=== PATIENT | female | born 1955 | race Caucasian/White ===

== ENCOUNTER 2024-09-20 18:01 | Outpatient (REF) | payer MEDICARE, OTHER, SELFPAY ==
--- NOTE | ~2024-09-20 | MR_ITS ---
EXAMINATION: MR BRAIN WITHOUT CONTRAST CLINICAL INFORMATION: [facility]. TIA/stroke possible. COMPARISON: None available. TECHNIQUE: MRI of the brain was obtained using routine sequences without contrast. FINDINGS: Submitted for interpretation on September 22, 2024. No restricted diffusion. No acute intracranial hemorrhage, mass effect, midline shift, hydrocephalus or herniation. Berger-white matter differentiation is normal. There are a few scattered, nonspecific hyperintense T2 FLAIR signal abnormality within the deep white matter supratentorial compartment. Susceptibility signal, right cerebellum white matter. Prominent Virchow-Rashawn spaces, congenital variant. Sellar/suprasellar region is normal. Craniocervical junction is intact and normal. Flow-void signal within the main cerebral vessels is normal. MR/MR head/brain wo con IMPRESSION: No acute stroke/nonhemorrhagic ischemia. No acute brain abnormality. Nonspecific T2 FLAIR signal. Electronically signed by: Bhargav Dubois MD 09/22/2024 03:13 PM [facility]
--- OUTSIDE RECORDS SUMMARY | 2024-09-20 18:10 | XMS_ITS | Continuity of Care Document ---
Author Organization [facility] 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 Care Team Information Rec eiver Unavailable Diamond Rosa Primary Care Physician Brandon legerle Problems Active Problems Provider Date Essential hypertension Onset: Pure hypercholesterolemia Onset: 01/21/2023 Impaired fasting glycemia Judy Castro Onset: 02/06/2023 Malaise and fatigue Mimi Ventura M.D. Onse t: 02/06/2023 Social History Type Date Description Comments Sex Unknown Medications Active Medications SIG Qnty Indications Order ing Provider Date Losartan Zzbycmguk69zz Tablets Take 1/2 Tablet By Mouth In Afternoon And 1 Full Tablet AT Night 135tabs I10 Mimi Ventura M.D. 08/23/2023 Sertraline FDY360rp Tablets take 1 tabs by mouth every day 30tabs Unknown Atorvastatin Jadmihe29vi Tablets take 1 tablet by mouth every day in the morning 90tabs Mimi Ventura M.D. Esomeprazole [id number] Capsules DR Take 1 Capsule By Mouth Every Day Rony Betancourt MD Vit B12 1000 x2/w->plans qod Unknown History Medications Losartan Olqusatdl66ag Tablets 1 in aft and 2 @night tab by mouth every day 270tabs I10 Mimi Ventura M.D. 05/15/2023 - 08/23/2023 Clonidine HCL0.1mg Tablets take 1 tablet by mouth twice a day 180tabs I10 Mimi Ventura M.D. 02/06/2023 - 05/20/2023 Metoprolol Xipifedq67fe Tablets Unknown 0 000 - 05/15/2023 Losartan Fokmwechb957lt Tablets Take 1 Tablet By Mouth Every Day In The Morning Unknown - 02/12/2023 Amlodipine Viyhpkfo3ro Tablets Take 1 Tablet By Mouth Every Day In The Morning Unknown - 02/12/2023
--- OUTSIDE RECORDS SUMMARY | 2024-09-20 18:10 | XMS_ITS | Continuity of Care Document ---
Author Organization [facility] Address [address] [place] [address]- Support Name Relationship Address Phone KEYANNA, HEBER Personal Relationship Unknown U navailable KEYANNA, HEBER Personal Relationship Unknown U navailable KEYANNA, HEBER Personal Relationship Unknown U navailable KEYANNA, HEBER Personal Relationship Unknown U navailable KEYANNA, HEBER Personal Relationship Unknown U navailable KEYANNA, HEBER Personal Relationship Unknown U navailable KEYANNA, HEBER Personal Relationship Unknown U navailable KEYANNA, HEBER Personal Relationship Unknown U navailable KEYANNA, HEBER Personal Relationship Unknown U navailable KEYANNA, HEBER Personal Relationship Unknown U navailable KEYANNA, HEBER Personal Relationship Unknown U navailable KEYANNA, HEBER Personal Relationship Unknown U navailable KEYANNA, HEBER Personal Relationship Unknown U navailable KEYANNA, HEBER Personal Relationship Unknown U navailable KEYANNA, HEBER spouse Unknown Unavailabl e KEYANNA, HEBER Personal Relationship Unknown U navailable KEYANNA, HEBER spouse Unknown Unavailabl e KEYANNA, HEBER Personal Relationship Unknown U navailable KEYANNA, HEBER Personal Relationship Unknown U navailable KEYANNA, HEBER Personal Relationship Unknown U navailable KEYANNA, HEBER Personal Relationship Unknown U navailable KEYANNA, HEBER Personal Relationship Unknown U navailable KEYANNA, HEBER Personal Relationship Unknown U navailable KEYANNA, HEBER Personal Relationship Unknown U navailable KEYANNA, HEBER Personal Relationship Unknown U navailable KEYANNA, HEBER Personal Relationship Unknown U navailable KEYANNA, KAREN Personal Relationship Unknown Елена vailable KEYANNA, HEBER Personal Relationship Unknown U navailable KEYANNA, HEBER Personal Relationship Unknown U navailable KEYANNA, HEBER Personal Relationship Unknown U navailable KEYANNA, HEBER Personal Relationship Unknown U navailable KEYANNA, HEBER Personal Relationship Unknown U navailable KEYANNA, HEBER Personal Relationship Unknown U navailable KEYANNA, HEBER Personal Relationship Unknown U navailable KEYANNA, HEBER Personal Relationship Unknown U navailable KEYANNA, LOUISA spouse Unknown Unavailable KEYANNA, HEBER Personal Relationship Unknown U navailable KEYANNA, HEBER Personal Relationship Unknown U navailable KEYANNA, HEBER Personal Relationship Unknown U navailable KEYANNA, HEBER Personal Relationship Unknown U navailable Care Team Providers 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 Name Role Phone Shelley MARTINEZ, Diamond Garcia Primary Care Physician Encounter [facility] [place] Date(s): 09/18/24 - 09/18/[address] [address]- Encounter Diagnosis Hypertension(Final) - 09/18/24 Discharge Disposition: A-D/C Home Attending Physician: Orlando Mcleod MD Admitting Physician: Orlando Mcleod MD Referring Physician: Not on Staff, Referring MD Encounter Type: Disch ES Allergies, Adverse Reactions, Alerts Substance Criticality Severity Reaction Reaction Severity Status statins Myalgia Active Medications atorvastatin 40 mg oral tablet 1 tablet = 40 mg, By Mouth, Daily, # 90 tablet, 3 Refills, Maintenance, Tablet, Route to Pharmacy Electronically, [id number], [facility]/pharmacy #[id number] Start Date: 12/12/18 Stop Date: 12/07/19 Status: Ordered Quantity: 90.0 Unit: tablet Repeat number: 4 Fish Oil By Mouth, Daily, 0 Refills, Maintenance, 07/03/13 3:11:43 PM EDT Start Date: 07/03/13 Status: Ordered Repeat number: 1 hydrochlorothiazide 25 mg oral tablet 25 mg, 1, tablet, By Mouth, Daily, # 30 tablet, Refills 0, Tot. Refills 0, Maintenance, 09/18/24 9:31:00 AM EST, Route to Pharmacy Electronically, [facility]/pharmacy #[id number], Partial fill upon patient requestif the prescription is for a schedule II opioid drug., 165, cm, 09/18/24 7:29:00 EST, Height, 68.3,kg, 09/18/24 7:29:00 EST, Dry Weight Start Date: 09/18/24 Status: Ordered Quantity: 30.0 Unit: tablet Repeat number: 1 losartan 100 mg oral tablet 1 tablet = 100 mg, By Mouth, Daily, # 90 tablet, 3 Refills, Maintenance, 10/17/23 10:13:00 AM EST, Tablet, [facility]/pharmacy #[id number], Partial fill upon patient request if the prescription is for a schedule IIopioid drug., 167, cm, 10/17/23 9:47:00 EST, Height Start Date: 10/17/23 Stop Date: 10/11/24 Status: Ordered Quantity: 90.0 Unit: tablet Repeat number: 4 metoprolol 50 mg oral tablet 50 mg, 1, tablet, By Mouth, 2 times a day, # 180 tablet, Refills 3, Tot. Refills 3, Maintenance, 10/17/23 10:13:00 AM EST, Route to Pharmacy Electronically, [facility]/pharmacy #[id number], Partial fill upon patient request if the prescription is for a schedule II opioid drug., 167, cm, 10/17/23 9:47:00 EST, Height Start Date: 10/17/23 Stop Date: 10/11/24 Status: Ordered Quantity: 180.0 Unit: tablet Repeat number: 4 omeprazole 20 mg oral delayed release tablet 1 tablet = 20 mg, By Mouth, 2 times a day, # 120 tablet, 0 Refills, Maintenance, 06/19/23 10:49:00 AM EDT, EC Tablet, Partial fill upon patient request if the prescription is for a schedule II opioiddrug. Start Date: 06/19/23 Status: Ordered Quantity: 120.0 Unit: tablet Repeat number: 1 sertraline 100 mg oral tablet 1 tablet = 100 mg, By Mouth, Daily, # 30 tablet, 0 Refills, Maintenance, 10/17/23 9:49:00 AM EST, Tablet, Partial fill upon patient request if the prescription is for a schedule II opioid drug. Start Date: 10/17/23 Status: Ordered Quantity: 30.0 Unit: tablet Repeat number: 1 Problem List Condition Confirmation Course Effective Dates Status H ealth Status Informant Chest pain on exertion Confirmed Active 2, c/s x 2 Confirmed Active Heart disease Confirmed Active Hyperlipidemia Confirmed Active Hypertension Confirmed Active HTN (hypertension) Confirmed Active Metabolic syndrome Confirmed Active SH - Social history 1 Confirmed Active 1Married to Heber. No tob, no drugs. Etoh 3/week. Vital Signs Most recent to oldest [Reference Range]: 1 2 3 Height 165 cm (09/18/24 7:29 AM) 165 cm (09/18/24 7:21 AM) Weight 68.3 kg (09/18/24 7:29 AM) 68.3 kg (09/18/24 7:21 AM) Oxygen Saturation [94-100 %] 98 % (09/18/24 9:00 AM) 99 % (09/18/24 8:00 AM) 98 % (09/18/24 7:21 AM) Pulse Rate [55-90 bpm] 69 bpm (09/18/24 9:00 AM) 59 bpm (09/18/24 8:00 AM) 65 bpm (09/18/24 7:21 AM) Body Mass Index [18.5-24.99 kg/m2] 25.09 kg/m2 *H* (09/18/24 7:21 AM) Blood Pressure [90-138/55-84 mm Hg] 163/63mm Hg *H* (09/18/24 9:00 AM) 178/87mm Hg *H* (09/18/24 8:00 AM) 206/83mm Hg *H* (09/18/24 7:21 AM) Respiratory Rate [16-30 br/min] 19 br/min (09/18/24 9:00 AM) 18 br/min (09/18/24 8:00 AM) 17 br/min (09/18/24 7:21 AM) Temperature [96.8-100.4 DegF] 97.3 DegF (09/18/24 7:21 AM) Mode of Delivery (Oxygen) Room air (09/18/24 9:00 AM) Room air (09/18/24 8:00 AM) Room air (09/18/24 7:21 AM) Blood pressure sites Arm, left (09/18/24 9:00 AM) Arm, left (09/18/24 8:00 AM) Arm, right (09/18/24 7:21 AM) Temperature Route Oral (09/18/24 7:21 AM) Dry Weight 68.3 kg (09/18/24 7:29 AM) 68.3 kg (09/18/24 7:21 AM) Weight Obtained Via Patient/family stated (09/18/24 7:29 AM) Patient/family stated (09/18/24 7:21 AM) Social History Social History Type Response Smoking Status Never smoker; Tobacc o user in household: No entered on: 08/12/13 Sex Sex Representation Female (finding) EKG study * Event Display: ECG 12-Lead Authored Date: Please click on pdf link to open report * Event Display: ECG 12-Lead Authored Date: Ventricular Rate: 61 BPM Atrial Rate: 61 BPM P-R Interval: 206 ms QRS Duration: 92 ms Q-T Interval: 462 ms QTC Calculation(Bazett): 465 ms P [place]: 49 degrees R [place]: 36 degrees T [place]: 78 degrees Normal sinus rhythm Left ventricular hypertrophy with repolarization abnormality Abnormal ECG When compared with ECG of 19-Jun-2023 10:38, No significant change was found Confirmed by PAT MADRIGAL ([id number]) on 09/18/2024 5:03:14 PM [place]: PAT MADRIGAL Note * Harsha LEHMAN, Orlando Hurd: PERFORM Event Display: Patient Education Leaflets Authored Date: [id number] Uncontrolled High Blood Pressure (Established) ?? [id number] Uncontrolled High Blood Pressure (Established) Your blood pressure was unusually high today. Your blood pressure may be high for several reasons. For example, this can occur if you???ve missed doses of your blood pressure medicine. Or it can happen if you are taking other medicines such as some asthma inhalers, decongestants, diet pills, and illegal drugs like cocaine and amphetamine. Other causes of high blood pressure include: ??? Weight gain ??? Too much salt in your diet ??? Smoking ??? Caffeine ??? Lack of exercise ??? Intense pain ??? Becoming upset???this means you feel fear, anger, or another strong emotion Blood pressure measurements are given as two numbers. Systolic blood pressure is the upper number. This is the pressure when the heart contracts. Diastolic blood pressure is the lower number. This isthe pressure when the heart relaxes between beats. You will see your blood pressure readings written together. For example, a person with a systolic pressure of 118 and a diastolic pressure of 78 will have 118/78 written in the medical record. To be diagnosed with high blood pressure, your numbers must be higher than the normal range when tested over a period of time. Blood pressure is categorized as normal, elevated, or stage 1 or stage 2 high blood pressure: ??? Normal blood pressure is systolic of less than 120 and diastolic of less than 80 (120/80) ??? Elevated blood pressure is systolic of 120 to 129 and diastolic less than 80 ??? Stage 1 high blood pressure is systolic of 130 to 139 or diastolic between 80 to 89 ??? Stage 2 high blood pressure is when systolic is 140 or higher or the diastolic is 90 or higher Uncontrolled high blood pressure can cause serious health problems. It raises your risk for heart attack, stroke, as well as both kidney and heart failure. But you can do many things to manage your blood pressure. In general, if you have high blood pressure, keeping your blood pressure below 130/80mmHg may help prevent these problems. Your healthcare provider may prescribe medicine to help control blood pressure if lifestyle changes are not enough. Home care It???s important to take steps to lower your blood pressure. If you are taking blood pressure medicine, the guidelines below may help you need less or no medicines in the future. ??? Start a weight-loss program if you are overweight. ??? Cut back on the amount of salt in your diet: o Don't have high-salt foods such as olives, pickles, smoked meats, canned soups, deli meats, or salted potato chips. o Don???t add salt to your food at the table. o Use only small amounts of salt when cooking. ??? Start an exercise program. Talk with your healthcare provider about what exercise program is best for you. It doesn???t have to be difficult. Even brisk walking for 20 minutes??3 times a week is a good form of exercise. ??? Don't use medicines that stimulate the heart. This includes many flzi-abl-zfqjhjz cold and sinus decongestant pills and sprays, as well as diet pills. Checkthe warnings about high blood pressure on the label. Before purchasing any uume-gda-ahrnjkr medicines or supplements, always ask the pharmacist about the product's potential interaction with your high blood pressure and your medicines. ??? Stimulants such as amphetamine or cocaine could be lethal for someone with high blood pressure, as well as those on certain blood pressure medicines. Never take these. ??? Limit how much caffeine you drink. Consider switching to noncaffeinated beverages. ??? Stop smoking. If you are a long-time smoker, this can be hard. Enroll in a stop-smoking program to ma ke it more likely that you will succeed. Talk with your provider about ways to quit. ??? Learn how to handle stress better. This is an important part of any program to lower blood pressure. Learn ways to relax. These include meditation, yoga, and biofeedback. ??? If medicines were prescribed, take them exactly as directed. Missing doses may cause your blood pressure to get out of control. Don't stop taking your medicines, even if you feel better or you feel like you don't need them anymore. Talk with your healthcare provider. ??? If you miss a dose or doses of your medicines, check with your healthcare provider or pharmacist about what to do. ??? Consider buying an automatic blood pressure m achNvigen. Your provider may advise a certain type. These are available at most pharmacies. It's idealto measure your blood pressure twice a day, once in the morning, and once in the late afternoon. Try to be consistent. Check your blood pressure around the same time each day for a good comparison. Keep a written record of your home blood pressure readings and take the record to your medical appointments. Here are some other guidelines on home blood pressure monitoring from the [employer]. ??? Don't smoke or drink coffee for 30 minutes before measuring your blood pressure. ??? Go to the bathroom before the test. ??? Relax for 5 minutes before taking the measurement. ??? Sit correctly. Be sure your back is supported. Don't sit on a couch or soft chair. Uncross your feet and place them flat on the floor. Place your arm on a solid, flat surface like a table with the upper arm at heart level. Make certain the middle of the cuff is directly above the bend of the elbow. Check the monitor's instruction manual for an illustration. ??? Take multiple readings. When you measure, take 2 or 3 readings 1 minute apart and record all of the results. ??? Take your blood pressure at the sametime every day, or as your healthcare provider recommends. ??? Record the date, time, and blood pressure reading. ??? Take the record with you to your next appointment. If your blood pressure monitorhas a built-in memory, simply take the monitor with you to your next appointment. ??? Call your provider if you have several high readings. Don't be frightened by a single high reading, but if you get several high readings, check in with your healthcare provider. ??? Note: When blood pressure reaches a systolic (top number) of 180 or higher or a diastolic (bottom number) of 110 or higher, you need emergency medical treatment. Call your healthcare provider right away. ?? Follow-up care Regular visits to your own healthcare provider for blood pressure and medicine checks are an important part of your care. Make a follow-up appointment as directed. Bring the record of your home bloodpressure readings to the appointment. ?? When to seek medical advice Call your healthcare provider right away if any of these occur: ??? Blood pressure reaches a systolic (top number) of 180 or higher or diastolic (bottom number) of110 or higher??? emergency medical treatment is required ??? Throbbing or rushing sound in the ears??? Nosebleed that comes back or doesn't go away ??? Dizziness or dizziness with spinning sensation(vertigo) Call 911 Call 911 if any of these occur: ??? Chest, arm, shoulder, neck, or upper back pain ??? Shortness ofbreath ??? Severe headache ??? Extreme drowsiness, confusion, or fainting ??? Weakness, tingling, or numbness of your face, arms, or legs (especially on one side of the body) ??? Trouble speaking or seeing? Last Reviewed Date: 2022 ?? 4166-1100 The [employer]. All rights reserved. This information is not intended as a substitute for professional medical care. Always follow your healthcare professional's instructions. ?? Patient Care team information Care Team Personnel Name: Shelley MARTINEZ, Diamond Garcia Position: Reference Physician Member Role: PCP Address: [address] [place] [address] Telecom: Care Team Related Persons Name: LOUISA BRICEÑO Insurance Providers Guarantor name: KAREN KEYANNA [employer] Plan Information #: 2 Payer: MARY LOZANO Member Number: [id number] Policy Number: NA Group Number: NA Health Plan Information #: 1 Payer: MEDICARE PART B OUTPT Member Number: [id number] Policy Number: NA Group Number: NA Health Plan Information #: 3 Payer: [employer] NON HMO PLANS Member Number: NA Policy Number: NA Group Number: NA
== END 2024-09-20 18:02 | disposition home or self-care (01) ==
LOC: HO.MRI 18:01
PROVIDERS: Visit Provider Psychiatry & Neurology Neurology
DX: G31.84 Mild cognitive impairment of uncertain or unknown etiology (principal)
CPT/HCPCS: 70551

== ENCOUNTER → 2024-09-20 18:19 | Outpatient (BNV) | payer MEDICARE, OTHER, SELFPAY | PROVIDERS: Visit Provider Radiology Diagnostic Radiology | DX: G31.84 Mild cognitive impairment of uncertain or unknown etiology (principal) | CPT/HCPCS: 70551 ==

== ENCOUNTER 2025-02-26 09:27 | Day surgery (SDC) | payer MEDICARE, OTHER, SELFPAY ==
--- OUTSIDE RECORDS SUMMARY | 2025-02-11 16:20 | XMS_ITS | Clinical Summary ---
Author Organization [employer] Address [address] [place] [address] [address] [place] [address] Care Team Providers Care Lamination Builder Name Role Phone Diamond Rosa ALEXIA Primary Care Provider [phone] Allergies No known active allergies Medications * This document contains information received from the source organization and may not represent a complete record from that organization. albuterol 108 (90 Base) MCG/ACT inhalerIndications :Mild intermittent asthma with acute exacerbation INHALE 2 PUFFS EVERY 6 HOURS IF NEEDED FOR WHEEZING OR SHORTNESS OF BREATH. 18 g 1 5 Active telmisartan-hydroC HLOROthiazide (Micardis HCT) 40-12.5 MG tabletIndications: Primary hypertension Take 1 tablet by mouth Once per day. 90 tablet 3 5 12/23/19 26 Active donepezil (Aricept) 5 MG tablet TAKE 1 TABLET BY MOUTH DAILY WITH FOOD 90 DAYS 5 Active famotidine (Pepcid) 40 MG tablet take 2 tablets by mouth every day at bedtime 5 Active omeprazole (PriLOSEC) [address] capsule TAKE 1 CAPSULE BY MOUTH EVERY DAY 30 MINUTES BEFORE MORNING MEAL 5 Active atorvastatin (Lipitor) 40 MG tabletIndications: Mixed hyperlipidemia Take 1 tablet (40 mg) by mouth Once per day. 90 tablet 3 5 Active sertraline (Zoloft) 100 MG tabletIndications: JENNY (generalized anxiety disorder) Take 1.5 tablets (150 mg) by mouth in the morning. 135 tablet 1 5 Active Active Problems Problem Noted Date Diagnosed Date Merrill's esophagus without dysplasia 07/21/2024 Hiatal hernia 04/10/2024 Primary osteoarthritis involving multiple joints 04/10/2024 JENNY (generalized anxiety disorder) 03/28/2023 Situational stress 03/28/2023 Impaired fasting glucose 02/06/2023 Anxiety 03/07/2018 Overview (10/09/2022): Last Assessment & Plan: She has been on sertraline for a long time and does not think this is working. Recommend follow-up with primary care for alternate SSRI or consider Wellbutrin. Chest tightness 03/07/2018 Overview (10/09/2022): Last Assessment & Plan: Resolved with better blood pressure control and decrease of metoprolol. High cholesterol 02/12/2018 Overview (10/09/2022): Last Assessment & Plan: She going to have a lipid profile drawn in the next several days. Hypertensive disorder 02/12/2018 Overview (10/09/2022): Last Assessment & Plan: Well-controlled with recent medication changes. Continue losartan 100 mg daily and metoprolol 100 mg nightly. Goal SBP less than 130. Follow-up 6 months. Mild intermittent asthma without complication Overview (10/09/2022): Last Assessment & Plan: No active wheezing. Continue inhalers. Resolved Problems Problem Noted Date Diagnosed Date Resolved Date Precordial pain 02/12/2018 07/21/2024 Overview (10/09/2022): Last Assessment & Plan: Her history is certainly consistent with ischemic heart disease. She is on very high dose of metoprolol and tells me a previous attempt at a stress test some years ago after the holding of this medication could not be done because of hypertension. She is at least for the moment asthma free so I've elected to proceed with a pharmacologic nuclear stress test so her medications can be continued. Her ECG today is remarkable for a sinus rhythm at 50 and voltage criteria for left ventricular hypertrophy. Encounters Date Type Department Care Team Description 01/12/2025 10:00 AM EDT Office Visit [address] [address] Diamond Rosa FNP Encounter for routine adult health examination with abnormal findings (Primary Dx); Encounter for screening mammogram for malignant neoplasm of breast; Primary osteoarthritis involving multiple joints; Screening for depression; Primary hypertension; JENNY (generalized anxiety disorder); Mixed hyperlipidemia 01/09/2025 Travel 12/21/[address] [address] Diamond Rosa FNP Primary hypertension 12/20/[address] [address] Diamond Rosa FNP Primary hypertension 11/20/2024 Population Health Risk Score [facility] () Department [address] [place] [phone] Provider, Population Health Generic from Last 3 Months Immunizations Immunization Administration Dates Next Due Influenza High-dose Quadriva lent Preservative Free 06/12/2022,07/31/2021,05/31/2020 Influenza injectable quadriv alent IIV4 with preservative 07/31/2021,08/07/2016 Influenza injectable quadriv alent preservative free 06/14/2017,07/17/2016,08/24/2015 Influenza, High Dose Seasona l, Preservative Free 08/28/2019 Influenza, IIV3, injectable 05/29/2012 Influenza, Injectable, MDCK, preservative free 05/03/2024 Influenza, Unspecified 08/28/2019,2016,06/09/2014,2012 Influenza, trivalent, adjuvanted 08/25/2024 Moderna Covid-19 Vaccine 6+ Bivalent 06/12/2022 Pneumococcal Conjugate PCV 20 07/30/2023 TD (adult), 2 Lf tetanus tox oid, preservative free, adsorbed 10/09/2022 Tdap 05/29/2012 Zoster, Recombinant 06/10/2019 Zoster, live 11/23/2013 Family History Medical History Relation Name Comments Accidental Father Ramiro Arthritis Father Ramiro Heart attack Father Ramiro Heart disease Father Ramiro Accidental Mother Noemi Breast cancer Mother Noemi Cancer Mother Noemi Depression Mother Noemi Drug abuse Mother Noemi Heart disease Mother Noemi Hypertension Mother Noemi Mental illness Mother Noemi Vision loss Mother Noemi Heart disease Other Breast cancer Paternal Grandmother Asthma Sister Aleta Relation Name Status Comments Father Ramiro Mother Noemi Other Paternal Grandmother Sister Aleta Social History Tobacco Use Types Packs/Day Years Used Date Smoking Tobacco: Never Smokeless Tobacco: Never Tobacco Cessation:Counseling Given: Not Answered Alcohol Use Standard Drinks/Week Comments Not Currently 0 (1 standard drink = 0.6 oz pur e alcohol) Alcohol Answer Date Recorded How often do you have a drink containing alcohol ? 0 01/08/2024 How many drinks containing a lcohol do you have on a typical day when you are drinking? 0 01/08/2024 How often do you have six or more drinks on one occasion? 0 01/08/2024 Depression Answer Date Recorded Patient Health Questionnaire-9 Score 13 01/12/2025 Patient Health Questionnaire-9 Score 13 01/12/2025 Last PHQ-9: Questionnaire Data Not on file 0 01/12/2025 Housing Stability Answer Date Recorded What is your housing situation today? I have claire blanchard 01/12/[address] you li ve. Do you have problems with any of the following? None of the above 01/12/2025 Food Insecurity Answer Date Recorded Within the past 12 months, y ou worried that your food would run out before you got money to buy more: Never True 01/12/2025 Within the past 12 months,th e food you bought just didn't last and you didn't have enough money to get more: Never True 02/2025 Transportation Answer Date Recorded In the past 12 months, has l ack of transportation kept you from medical appts, meetings, work or from getting things needed for daily living? No 01/12/2025 Intimate Partner Violence Answer Date R ecorded Within the last year, have y ou been afraid of your partner or ex-partner? 2 01/12/2025 Within the last year, have y ou been humiliated or emotionally abused in other ways by your partner or ex-partner? 2 Within the last year, have y ou been kicked, hit, slapped, or otherwise physically hurt by your partner or ex-partner? 2 01/12/2025 Within the last year, have y ou been raped or forced to have any kind of sexual activity by your partner or ex-partner? 2 01/12/2025 Utilities Answer Date Recorded In the past 12 months, has t he [employer], gas, oil or water [employer] threatened to shut off services in your home? No 01/12/2025 Depression Answer Date Recorded Patient Health Questionnaire-2 Score 6 01/12/2025 Internet Access Answer Date Recorded Internet Access Q1 Yes 07/21/2024 Internet Access Q2 Not on file 07/21/2024 Comments Unknown Sex and Gender Information Value Date Recorded Sex Assigned at Female 10/09/2022 7:56 AM EST Legal Sex Female 12:16 PM EST Gender Identity Female 10/09/2022 7:56 AM EST Sexual Orientation Choose not to disclose 2022 8:53 AM EST Last Filed Vital Signs Vital Sign Reading Time Taken Comments Blood Pressure 134/74 01/12/2025 10:44 AM EDT Pulse 75 01/12/2025 10:44 AM EDT Temperature 36.4 ??C (97.5 ??F) 07/21/2024 9:00 AM ES T Respiratory Rate - - Oxygen Saturation 97% 01/12/2025 10:44 AM EDT Inhaled Oxygen Concentration - - Weight 70.1 kg (154 lb 9.6 oz) 10/08/2024 2:01 P M EST Height 167.6 cm (5' 6 ) 01/12/2025 10:44 AM EDT Body Mass Index 25.34 12/31/2023 9:56 AM EDT Plan of Treatment Upcoming Encounters Date Type Department Care Team (Late st Contact Info) Description 07/16/2025 9:00 AM EST Office Visit [address] [address] Diamond Rosa FNP [address] [place] [address] Health Maintenance Due Date Last Done Comments CT Colonography 1953 FIT DNA/Cologuard 1955 FIT 1955 FOBT 1955 Sigmoidoscopy 1955 RSV Patients and Patients Aged 60 years or older (1 - Risk 60-74 years 1-dose series) 2013 Zoster Vaccines (3 of 3) 08/05/2019 06/10/2019, 11/07 COVID-19 Vaccine ( season) 2024 12/04/2023, 07/08/2023, 06/12/2022, Additional history exists Mammogram 11/26/2024 11/27/2023, 11/07, 11/25/2023, Additional history exists Depression Monitoring 07/15/2025 01/12/2025, 025 Alcohol/Substance Use Screening 01/12/2026 01/12/2025 SDOH Screening 01/12/2026 01/12/2025 Tobacco Screening 01/12/2026 01/12/2025 Lipid Panel 02/15/2028 02/14/2023 Colonoscopy 05/10/2030 08/07/2018 Colorectal Cancer Screening 05/10/2030 DTaP/Tdap/Td Vaccines (3 - Td or Tdap) 10/09/2032 10/09/2022, 05/29/2012 Pneumococcal Vaccine: 50+ Years Completed 07/30/2023 Influenza Vaccine Completed 08/25/2024, , 06/12/2022, Additional history exists HIB Vaccines Aged Out No longer eligi ble based on patient's age to complete this topic HPV Vaccines Aged Out No longer eligi ble based on patient's age to complete this topic Hepatitis A Vaccines Aged Out No long er eligible based on patient's age to complete this topic Hepatitis B Vaccines Aged Out No long er eligible based on patient's age to complete this topic Hepatitis C Screening Discontinued IPV Vaccines Aged Out No longer eligi ble based on patient's age to complete this topic Meningococcal B Vaccine Aged Out No l onger eligible based on patient's age to complete this topic Meningococcal Vaccine Aged Out No shady esther eligible based on patient's age to complete this topic RSV under 20 months Aged Out No longe r eligible based on patient's age to complete this topic Rotavirus Vaccines Aged Out No longer eligible based on patient's age to complete this topic Procedures Procedure Name Priority Date/Time Associated Diagnosis Comments MAMMOGRAPHY Routine 11/27/2023 LIPID PANEL, STANDARD Routine 02/14/2023 8:56 AM EDT Primary hypertension Mixed hyperlipidemia from Last 3 Months or Most Recently Relevant to Health Maintenance Results * Mammography (11/27/2023) Mammogram BIRADS 2 Normal, Abnormal, BIRADS 1 , BIRADS 2 Anatomical Region Laterality Modality Other Historical Provider MD HEALTH MAINTENANCE Final Result * Lipid Panel, Standard (02/14/2023 8:56 AM EDT) Cholesterol, Total 190 (<200) MG/DL [facility] Triglyceride (mg/dL) in Serum/Plasma 121 (<150) MG/DL [facility] HDL Cholesterol 49 (>39) MG/DL [facility] LDL Cholesterol, Calculated 117 (0-130) MG/DL [facility] Non HDL Chol. (LDL+VLDL) 141 (<160) MG/DL [facility] Comment: Testing performed or reported by [facility], a Service of [facility], [address] [place] [id number] Harvey Issa MD, Diesel Scoop Operator [facility]# [id number] Blood Venous blood specimen / Unknown 02/14/2023 8:56 AM EDT 02/14/2023 9:04 AM EDT Diamond HALE LAB BLOOD ORDERABLES Final Res ult [address] [address] from Last 3 Months or Most Recently Relevant to Health Maintenance Insurance [employer] [facility] MEDICARE SUPPLEMENT Care Teams Lamination Builder Relationship Specialty Start Date End Date Diamond Rosa FNP PCP - General Family Medicine 08/20/22
[2025-02-26] VITALS (11 sets, daily range): BP systolic 115–153; BP diastolic 49–77; PULSE 58–72; RESP 16–18; TEMP 36.2–36.7; O2SAT 97–99; BMI 25.4
--- NOTE | ~2025-02-26 | FL_ITS ---
EXAMINATION: XR LUMBAR PUNCTURE CLINICAL INFORMATION: Mild cognitive impairment COMPARISON: None available. TECHNIQUE: Following explaining fluoroscopy-guided lumbar puncture procedure, benefits and risk, a written consent was obtained. Patient was placed prone on fluoroscopy table and preliminary fluoroscopy performed and optimal site was selected overlying the L3-4 disc level. A marker was placed in areas cleaned and draped in usual sterile manner. 1% lidocaine was administered at puncture site. A 20-gauge spinal needle was advanced from the skin intrathecally at the L3-4 disc level . After removing stylet and observing CSF fluid return, patient was quickly placed in the left lateral decubitus view and opening CSF pressure was obtained. Approximately 14 mL of clear CSF fluid was collected in 4 test tubes. Stylet was reintroduced and needle withdrawn. Complete hemostasis achieved at puncture site. Sterile Band-Aid applied postprocedure. Patient tolerated procedure extremely well. FINDINGS: On the AP view of the lumbar spine the vertebral heights and alignment is normal. There are bridging osteophytes at the L3-4 disc level. Opening CSF pressure measured 16 cm of water. Approximately 14 mL of clear CSF fluid was collected in 4 test tubes. FLUOROSCOPY TIME: 30 seconds DOSE AREA PRODUCT: 721.2 uGy-m2 (microgray-meter squared) FL/FL guided lumbar puncture LP IMPRESSION: Successful fluoroscopy-guided L3-L4 lumbar puncture performed without immediate complications. Electronically signed by: Rafael Mohan MD 02/26/2025 04:35 PM EDT
--- NOTE | 2025-02-26 09:44 | PC.NURSE ---
labs being drawn
[2025-02-26 09:49] LABS: MANUAL DIFF FLAG NO
[2025-02-26 09:52] LABS: Basophils Absolute Auto 0.1 X10*3/uL (0.0-0.2); Basophils Percent Auto 1.2 % (0-2); Eosinophils Absolute Auto 0.2 X10*3/uL (0.0-0.4); Eosinophils Percent Auto 4.2 % (0-4); Hematocrit 36.4 % (37.0-47.0); Hemoglobin 12.7 g/dl (12.0-16.0); Imm Gran Abs Auto 0.01 X10*3/uL (0.00-0.03); Imm Gran Pct Auto 0.2 % (0.0-0.4); Lymphocytes Absolute Auto 1.1 X10*3/uL (1.2-4.9); Lymphocytes Percent Auto 25.8 % (20-40); Mean Corpuscular HGB Conc 34.9 g/dl (31.0-35.0); Mean Corpuscular Volume 88.8 fL (80.0-98.0); Mean Platelet Volume 9.8 fL (9.4-12.3); Monocytes Absolute Auto 0.3 X10*3/uL (0.1-1.2); Monocytes Percent Auto 7.9 % (2-11); Neutrophils Absolute Auto 2.6 x10*3/uL (2.0-8.3); Neutrophils Percent Auto 60.7 % (45-73); Platelet Count 182 X10*3/uL (160-400); Red Cell Distribution Width 12.3 % (11.0-16.0); White Blood Count 4.3 X10*3/uL (4.8-10.8)
[2025-02-26 10:00] LABS: Prothrombin Time 11.8 SEC (10.9-12.4)
[2025-02-26 10:03] LABS: Partial Thromboplastin Time 33.9 SEC (26.0-36.8)
[2025-02-26 10:07] LABS: Anion Gap 9 (12-20); Blood Urea Nitrogen 12 mg/dL (9-16); Calcium 9.8 mg/dL (8.4-10.2); Carbon Dioxide 28 mmol/L (22-29); Chloride 105 mmol/L (96-108); Estimated Glomerular Filt Rate > 60; Glucose Random 102 mg/dL (60-115); Sodium 138 mmol/L (135-145)
[2025-02-26 12:35] LABS: CSF Appearance Clear, Colorless; CSF Tube # 1
[2025-02-26 12:39] LABS: Oligoclonal Serum Yes
[2025-02-26 12:43] LABS: Glucose CSF 53 mg/dL; Total Protein CSF 49.6 mg/dL (15-45)
[2025-02-26 12:55] LABS: Appearance CSF CLEAR; CSF Monos 14 %; CSF Tube # 4; Color CSF COLORLESS; Lymphocytes CSF 86 %
[2025-02-26 12:56] LABS: Red Blood Cell CSF 7 MM*3; White Blood Cell CSF 2 MM*3
[2025-03-04 16:53] LABS: Lyme IgG CSF Immunoblot NO BANDS DETECTED; Lyme IgM CSF Immunoblot NO BANDS DETECTED
[2025-03-05 01:43] LABS: Oligoclonal Banding Absent (Absent)
== END 2025-02-26 13:43 | disposition home or self-care (01) ==
PROVIDERS: Radiology Diagnostic Radiology; Visit Provider Psychiatry & Neurology Neurology
PROC: 009U3ZZ Drainage of Spinal Canal, Percutaneous Approach (ICD-10-PCS; CPT 62270; principal; 2025-02-26 11:00)
DX: G31.84 Mild cognitive impairment of uncertain or unknown etiology (principal); R79.9 Abnormal finding of blood chemistry, unspecified; D72.10 Eosinophilia, unspecified; I10 Essential (primary) hypertension; K21.9 Gastro-esophageal reflux disease without esophagitis; K44.9 Diaphragmatic hernia without obstruction or gangrene; Z79.899 Other long term (current) drug therapy
CPT/HCPCS: 36415; 62328; 80048; 82234; 82945; 83916; 84157; 84393; 84394; 85025; 85610; 85730; 86617; 87015; 87070; 87205; 89051; J2003

== ENCOUNTER → 2025-02-26 11:00 | Outpatient (BNV) | payer MEDICARE, OTHER, SELFPAY | PROVIDERS: Visit Provider Radiology Diagnostic Radiology | DX: G31.84 Mild cognitive impairment of uncertain or unknown etiology (principal) | CPT/HCPCS: 62328 ==

== ENCOUNTER 2025-04-27 10:09 | Outpatient (AMB) | payer MEDICARE, OTHER, SELFPAY ==
--- NOTE | 2025-04-27 10:34 | A.OFFVIS_ITS ---
Intake Visit Reasons: [facility] Allergies No Known Allergies Allergy (Verified 02/26/25 09:32) Medication List - Last Reconciled 04/27/25 by Leno Thorne MD atorvastatin 40 mg PO DAILY donanemab-azbt (Kisunla) 1,400 mg (80 mL) IV Q4W esomeprazole magnesium 40 mg PO DAILY famotidine 40 mg PO DAILY losartan 50 mg PO DAILY metoprolol tartrate 50 mg PO BID sertraline 100 mg PO DAILY telmisartan-hydrochlorothiazid 40-12.5 mg 1 tab PO DAILY HPI Comments Details: Short term memory is a problem. No recall of what the conversation was the day before. Functioning ok. Misplaces phone more regularly. Stopped her Donepezil after 2-3 weeks as she felt she was worse. Memantine 5mg bid . She has difficulty with names and spelling. She had trouble remembering what day it was and if she took her medications. She had missed some appointments. One time she tried to make coffee and poured water directly into coffee grounds. She was still under a lot of stress at home related to her . She started working with a therapist which was going well. She did okay with donepezil 5mg. She tried donepezil 10mg, but did not like how she felt. She had shakiness and change in sleep. She was either not able to sleep or was sleeping too much. She feels her memory has continued to decline over the last month. She was more forgetful and had to write everything down. She was still driving without issue, although she was nervous about getting lost while driving to this appointment. She was reading every night, but had some trouble remembering what she read and would have to go back. On two or three occasions, she left the burner on after using the stove. She had a friend who was receiving infusion treatments for AD. She was not sure if this was something she was eligible for. [facility] Medical History (Updated 04/27/25 @ 10:46 by Leno Thorne MD) Bilateral cataracts Mild cognitive impairment Elevated HDL Hiatal hernia GERD (gastroesophageal reflux disease) HTN (hypertension) Surgical History (Updated 02/26/25 @ 09:43 by Mary Lou Villalpando RN) History of removal of both ovaries H/O section H/O varicose vein ligation Social History Patient Tobacco Use Status: Never used Tobacco Review of Systems Const Details: General/Constitutional:? Change in appetitedenies.? Chillsdenies.? Fatigueadmits.? Feverdenies.? Weight gaindenies.? Weight lossdenies. ???Sleep:? Difficulty getting to sleepdenies.? Difficulty maintaining sleepdenies?.? Urge to move legsdenies.? Teeth grindingadmits.? Shouting or Kicking during sleep denies.? Abnormal behavior during sleepdenies.? Excessive sleepdenies.? Snoring admits.? Daytime sleepinessdenies. ???Respiratory:? Shortness of breathdenies.? Chest paindenies.? Coughdenies. ???Cardiovascular:? Chest pain at restdenies.? Chest pain with exertiondenies.? Claudicationdenies .? Dizzinessdenies.? Fluid accumulation in the legsdenies.? Irregular heartbeat denies.? Palpitationsdenies. ???Gastrointestinal:? Abdominal paindenies.? Constipationadmits.? Diarrheadenies.? Difficulty swallowingdenies.? Heartburnadmits.? Nauseadenies.? Rectal bleedingdenies. ???Genitourinary:? Frequent urinationdenies.? Urgencydenies.? Incontinencedenies.? Erectile Dysfunctiondenies. ???Musculoskeletal:? Neck painadmits.? Back paindenies.? Muscle achesadmits.? Painful jointsadmits.? Sciaticadenies.? Weaknessdenies. ???Neurologic:? Difficulty swallowingdenies.? Balance difficultydenies.? Coordinationnormal.? Difficulty speakingdenies.? Dizzinessdenies.? Faintingdenies.? Gait abnormality denies.? Headachedenies.? Loss of strengthdenies.? Loss of use of extremity denies.? Low back paindenies.? Memory lossadmits.? Seizuresdenies.? Ticsdenies.? Tingling/Numbnessdenies.? Transient loss of visiondenies.? Tremordenies. ???Psychiatric:? Anxietyadmits.? Auditory/visual hallucinationsdenies.? Delusionsdenies.? Depressed moodadmits.? Stressorsadmits.? Substance abusedenies.? Suicidal thoughtsdenies. Physical Exam Neuro Other: Neurological: Abnormal neurological findings:??MMS 24,?MoCA 17 with MIS 4/15, Functional Activities Questionnaire 12.?Mental Status:??alert, as below.?Cranial Nerves:??Pupils are equal, round and reactive to light. Fundoscopy shows normal disc bilaterally. External occular muscles are intact. Visual up are full, no ptosis. Face is symmetrical, no facial weakness or droop. Facial sensations are normal. Tongue protrudes in midline. Palate elevates symmetrically. Shoulder shrugging is normal..?Motor Examination:??Normal muscle tone, bulk and strength,?No atrophy or fasciculations,?No drift of the extended upper extremities,?Deep tendon reflexes are 2+?,?Plantars are flexor?.?Straight Leg Raising:??90 degrees.?Sensory Exam:??Normal light touch, temperature, pinprick, vibration and joint-position sensations?,?Rhomberg sign is absent.?Coordination:??no ataxia,?no titubation,?xxinwv-se-qiou, yolv-bpnv-gvjj test and rapid alternating movements were normal.?Gait Exam:??Within normal sterling its.?Cerebellar Signs:??Ulsdzu-jq-magw and qjvi-za-ykcp is normal,?no dysdiadochokinesia?.?Extrapyramidal System:??No tremor, rigidity with normal facial expressions,?No bradykinesia, no bradyphrenia. Normal arm swing and posture. No propulsion or retropulsion.?Speech:??Normal,?no dysphasia or dysarthria..? Mini Mental Status Exam: Level of Consciousness:??Alert.?Orientation:??Knows correct year, month, day and season. Not date.?Knows correct city, county and state. Knows correct location and floor.?Registration:??Able to register 3 objects.?Attention:??Serial 7's performed accurately to 93.?Recall:??Able to recall 2 out of 3 objects.?Language:??Normal spontaneous speech, fluency, repetition,naming, comprehension, reading and writing.?Total Score:??24.? General Examination: GENERAL APPEARANCE:??normal,?in no acute distress.?HEART:??S1, S2 normal,?no murmurs.?LUNGS:??clear anteriorly and posteriorly.?MUSCULOSKELETAL:?? normal.?EXTREMITIES:??no edema.?PSYCH:??alert, as above.? Results Reviewed Results Reviewed: 02/26/25 CSF: (A-beta 42) and total tau (T-tau) proteins, reflected in a reduced A-beta 42 to T-tau Index (ATI). The level of phospho-tau (P-tau) was also elevated. These results are consistent with a diagnosis of Alzheimer's disease (AD). Assessment & Plan Assessment & Plan (1) Mild cognitive impairment: Comment: 09/25/24 EEG- WNL 09/2024 labs ok 09/2024 MRI brain: No acute findings 11/18/24 MMS , MoCA with MIS 12/22, Functional Activities Questionnaire 12 Code(s): G31.84 - Mild cognitive impairment of uncertain or unknown etiology Category: Medical (2) Alzheimer's disease: Code(s): G30.9 - Alzheimer's disease, unspecified; F02.80 - Dementia in other diseases classified elsewhere, unspecified severity, without behavioral disturbance, psychotic disturbance, mood disturbance, and anxiety Category: Medical Plan Approval for Kisunla infusions for anti-amyloid therapy. Medications: New donanemab-azbt (Kisunla) administer as dose 4 and thereafter 1,400 mg (80 mL) IV Q4W Coding Level of Care Code Est Pt Level 4 (91250) Diagnoses Mild cognitive impairment G31.84 Alzheimer's disease G30.9; F02.80
--- OUTSIDE RECORDS SUMMARY | 2025-04-27 11:24 | XMS_ITS | Encounter Summary ---
Author Organization [facility] Address [facility] [address] [place] [address] Phone Care Team Providers Care Marketing Operations Coordinator Name Role Phone MayaElvin orellana Brittney DO Unavailable Nicky Lopez MD Unavailable [phone] Addie Castellon MD Unavailable [phone] Andreina Melissa KOSHER SEALER Unavailable [phone] Andreina Melissa KOSHER SEALER Primary Care Provider Diamond Rosa KOSHER SEALER Primary Care Provider + Encounter Details Date Type Department Care Team (Late st Contact Info) Description 05/09/2020 Ancillary Orders Virtual Department [address] [place] [address] Andreina Melissa, KOSHER SEALER [address] [place], [place] [phone] Breast screening Social History Tobacco Use Types Packs/Day Years Used Date Smoking Tobacco: Former Cigarettes Q uit: 02/12/1970 Smokeless Tobacco: Never Alcohol Use Standard Drinks/Week Comments Yes 0 (1 standard drink = 0.6 oz pur e alcohol) occasional Comments No Sex and Gender Information Value Date Recorded Sex Assigned at Female 08/07/2018 8:38 PM EST Legal Sex Female 9:57 PM EDT Gender Identity Female 08/07/2018 8:38 PM EST Sexual Orientation Straight 08/07/2018 8: 38 PM EST documented as of this encounter Plan of Treatment Upcoming Encounters Date Type Department Care Team (Late st Contact Info) Description 11/06/2024 Procedure Pass [address] [address] 05/14/2025 9:00 AM EDT Appointment [facility] [address] [place] [address] Diamond Rosa NP [address] [place] [address] documented as of this encounter Results * BI MAMMOGRAM SCREENING WITH TOMOSYNTHESIS WITH CAD (BILATERAL) (08/08/2020 10:02 AM EST) Anatomical Region Laterality Modality Breast Left, Breast Right, Breast Bilateral Bila teral Mammography 08/08/2020 1:21 PM EST Impressions 08/08/2020 1:24 PM EST No findings suspicious for malignancy. In the absence of a worrisome palpable abnormality, annual screening mammography is recommended. BI-RADS CATEGORY: 2 - Benign finding. DENSITY: There are scattered fibroglandular densities. Narrative 08/08/2020 1:24 PM EST COMPARISON: 01/20/2014 through 07/29/2019. Bilateral 3-D tomosynthesis with 2-D reconstructions in the CC and MLO projection of each breast was obtained. Computer-aided detection system also utilized. No new mass, asymmetry, architectural distortion or suspicious calcifications have become apparent on either side. Chronic widespread dermal and benign calcifications unchanged. Procedure Note Jose Martin Ling MD - 08/08/2020 COMPARISON: 01/20/2014 through 07/29/2019. Bilateral 3-D tomosynthesis with 2-D reconstructions in the CC and MLOprojection of each breast was obtained. Computer-aided detection systemalso utilized. No new mass, asymmetry, architectural distortion or suspiciouscalcifications have become apparent on either side. Chronic widespread dermal and benign calcifications unchanged. IMPRESSION: No findings suspicious for malignancy. In the absence of a worrisomepalpable abnormality, annual screening mammography is recommended. BI-RADS CATEGORY: 2 - Benign finding. DENSITY: There are scattered fibroglandular densities. Andreina Melissa KOSHER SEALER IMG MG EXAMS Final Result documented in this encounter Visit Diagnoses Diagnosis Breast screening Breast screening, unspecified Breast screening Breast screening, unspecified documented in this encounter Care Teams Marketing Operations Coordinator Relationship Specialty Start Date End Date Andreina Melissa NP [address] [place] [address] PCP - General Family Medicine 09/20/17 09/05/23 Diamond Rosa NP [address] [place] [address] PCP - General Family Medicine 09/06/23 Elvin Overton DO [address] [place] [address] Historical LMR Provider 06/24/17 09/16/21 Nicky Lopez MD [address] [place] [address], 2nd [place] [address] Historical LMR Provider 06/24/17 Addie Castellon MD [address] [place] [address] Historical LMR Provider 06/24/17 2 Andreina Melissa, KOSHER SEALER [address] [place] [address] Historical LMR Provider 06/24/17 documented as of this encounter Additional Source Comments The information contained in this document represents components of the legal health record. It is not the complete legal health record.[facility]
--- OUTSIDE RECORDS SUMMARY | 2025-04-27 11:24 | XMS_ITS | Clinical Summary ---
Author Organization [employer] Address [address] [facility] 7t [place] [address] Care Team Providers Care Mobile Lounge Driver Or Operator Name Role Phone Diamond Rosa ALEXIA Primary Care Provider [phone] Allergies No known active allergies Medications * This document contains information received from the source organization and may not represent a complete record from that organization. albuterol 108 (90 Base) MCG/ACT inhalerIndication s:Mild intermittent asthma with acute exacerbation INHALE 2 PUFFS EVERY 6 HOURS IF NEEDED FOR WHEEZING OR SHORTNESS OF BREATH. 18 g 1 10/01/19 25 Active telmisartan-hydro CHLOROthiazide (Micardis HCT) 40-12.5 MG tabletIndications :Primary hypertension Take 1 tablet by mouth Once per day. 90 tablet 3 12/23/19 25 026 Active donepezil (Aricept) 5 MG tablet TAKE 1 TABLET BY MOUTH DAILY WITH FOOD 90 DAYS 11/19/19 25 Active famotidine (Pepcid) 40 MG tablet take 2 tablets by mouth every day at bedtime 11/05/19 25 Active omeprazole (PriLOSEC) [address] capsule TAKE 1 CAPSULE BY MOUTH EVERY DAY 30 MINUTES BEFORE MORNING MEAL 12/21/19 25 Active atorvastatin (Lipitor) 40 MG tabletIndications :Mixed hyperlipidemia Take 1 tablet (40 mg) by mouth Once per day. 90 tablet 3 01/13/20 25 Active sertraline (Zoloft) 100 MG tabletIndications :JENNY (generalized anxiety disorder) TAKE 1 TABLET BY MOUTH EVERY DAY IN THE MORNING 90 tablet 3 03/31/20 25 Active sertraline (Zoloft) 100 MG tabletIndications :JENNY (generalized anxiety disorder) Take 1.5 tablets (150 mg) by mouth in the morning. 135 tablet 1 01/13/20 25 025 Discontinued Active Problems Problem Noted Date Diagnosed Date [...] Encounters Date Type Department Care Team Description 03/31/[address] [address] Diamond Rosa FNP JENNY (generalized anxiety disorder) from Last 3 Months Immunizations Immunization Administration [...] Mental illness Mother Noemi Vision loss Mother Onemi Heart disease Other Breast cancer Paternal Grandmother [...] the past 12 months, has t he electric, gas, oil or water company threatened to shut off services in your [...] 75 01/12/2025 10:44 AM EDT Temperature 36.4 C (97.5 F) 07/21/2024 9:00 AM EST Respiratory Rate - - Oxygen Saturation 97% [...] Description 07/16/2025 9:00 AM EST Office Visit [address] [address] Diamond Rosa FNP [address] [place] [address] Health Maintenance Due Date Last Done Comments CT Colonography 1953 FIT DNA/Cologuard 1955 FIT 1955 FOBT 1955 Sigmoidoscopy 1953 RSV Patients and Patients Aged 60 years or older (1 - Risk 60-74 years 1-dose series) 2013 Zoster Vaccines (3 of 3) 08/05/2019 06/10/2019, 11/07 COVID-19 Vaccine ( season) 2024 12/04/2023, 07/08/2023, 06/12/2022, Additional history exists Mammogram 11/26/2024 11/27/2023, 11/07, 11/25/2023, Additional history exists Influenza Vaccine (#1) 2025 , 05/03/2024, 06/12/2022, Additional history exists Depression Monitoring 07/15/2025 01/12/2025, 025 Alcohol/Substance Use Screening 01/12/2026 01/12/2025 SDOH Screening 01/12/2026 01/12/2025 Tobacco Screening 01/12/2026 01/12/2025 Lipid Panel 02/15/2028 02/14/2023 Colonoscopy 05/10/2030 08/07/2018 Colorectal Cancer Screening 05/10/2030 DTaP/Tdap/Td Vaccines (3 - Td or Tdap) 10/09/2032 10/09/2022, 05/29/2012 Pneumococcal Vaccine: 50+ Years Completed 07/30/2023 HIB Vaccines Aged Out No longer eligi [...] Procedure Name Priority Date/Time Associated Diagnosis Comments AMB REFERRAL TO HAND SURGERY Routine 02/15/2025 Primary osteoarthritis involving multiple joints HM MAMMOGRAPHY Routine 11/27/2023 LIPID PANEL, STANDARD Routine 02/14/2023 8:56 AM EDT Primary hypertension Mixed hyperlipidemia from Last 3 Months or Most Recently Relevant to Health Maintenance Results * Referral to Hand Surgery (02/15/2025) Diamond Rosa [facility] OUTPATIENT REFERRAL ORDERABLES Final Result * Mammography (11/27/2023) Mammogram BIRADS 2 Normal, Abnormal, BIRADS 1 , BIRADS 2 Anatomical Region Laterality Modality Other Historical Provider MD HEALTH MAINTENANCE Final Result * Lipid Panel, Standard (02/14/2023 8:56 AM EDT) Cholesterol, Total 190 (<200) MG/DL [facility] Triglyceride (mg/dL) in Serum/Plasma 121 (<150) MG/DL [facility] HDL Cholesterol 49 (>39) MG/DL [facility] LDL Cholesterol, Calculated 117 (0-130) MG/DL [facility] Non HDL Chol. (LDL+VLDL) 141 (<160) MG/DL [facility] Comment: Testing performed or reported by [facility], a Service of [facility], [address] [place] [address] Harvey Issa MD, Splitting Machine Tender [facility]# [id number] Blood Venous blood specimen / Unknown 02/14/2023 8:56 AM EDT 02/14/2023 9:04 AM EDT Diamond Rosa [facility] BLOOD ORDERABLES Final Res ult [facility] [address] [address] from Last 3 Months or Most Recently Relevant to Health Maintenance [place] [address] [place] [address] [id number] [facility] MEDICARE SUPPLEMENT Care Teams Mobile Lounge Driver Or Operator Relationship Specialty Start Date End Date Diamond Rosa FNP PCP - General Family Medicine 08/20/22
== END 2025-04-27 11:21 | disposition home or self-care (01) ==
LOC: HO.HSM 10:09
PROVIDERS: PCP Student in an Organized Health Care Education/Training Program; Referring Provider Student in an Organized Health Care Education/Training Program; Visit Provider Psychiatry & Neurology Neurology
DX: G31.84 Mild cognitive impairment of uncertain or unknown etiology (principal); G30.9 Alzheimer's disease, unspecified; F02.80 Dementia in other diseases classified elsewhere, unspecified severity, without behavioral disturbance, psychotic disturbance, mood disturbance, and anxiety
CPT/HCPCS: 99214

== ENCOUNTER → 2025-04-27 10:09 | Outpatient (BNVA) | payer MEDICARE, OTHER, SELFPAY | PROVIDERS: PCP Student in an Organized Health Care Education/Training Program; Referring Provider Student in an Organized Health Care Education/Training Program; Visit Provider Psychiatry & Neurology Neurology | DX: G31.84 Mild cognitive impairment of uncertain or unknown etiology (principal); G30.9 Alzheimer's disease, unspecified; F02.80 Dementia in other diseases classified elsewhere, unspecified severity, without behavioral disturbance, psychotic disturbance, mood disturbance, and anxiety | CPT/HCPCS: 99212 ==

== ENCOUNTER 2025-05-04 09:38 | Outpatient (REF) | payer MEDICARE, OTHER, SELFPAY ==
--- OUTSIDE RECORDS SUMMARY | 2025-05-04 10:15 | XMS_ITS | Encounter Summary ---
Author Organization [facility] Address Critical access hospital [employer] [facility] [address] [place] [address] Phone Care Team Providers Care Social Work Faculty Member Name Role Phone MayaElvin orellana Brittney DO Unavailable Nicky Lopez MD Unavailable [phone] Addie Castellon MD Unavailable Andreina Melissa IRRIGATOR Unavailable [phone] Andreina Melissa IRRIGATOR Primary Care Provider Diamond Rosa IRRIGATOR Primary Care Provider + Encounter Details Date Type Department Care Team (Late st Contact Info) Description 05/09/2020 Procedure Pass [address] [address] Social History Tobacco Use Types Packs/Day Years [...] (Late st Contact Info) Description 11/06/[address] [address] 05/14/2025 9:00 AM EDT Appointment [facility]- [address] [address] Diamond Rosa, JUAN [address] [place] [address] documented as of this encounter Visit Diagnoses Not on filedocumented in this encounter Care Teams Social Work Faculty Member Relationship Specialty Start Date End Date Andreina Melissa, IRRIGATOR [address] [place] [address] PCP - General Family Medicine 09/20/17 09/05/23 Diamond Rosa, JUAN [address] [place] [address] PCP - General Family Medicine 09/06/23 Elvin Overton DO [address] [place] [address] [email or web address] Historical LMR Provider 06/24/17 09/16/21 Nicky Lopez MD [address] [place] [address], [address] [place] [address] Historical LMR Provider 06/24/17 Addie Castellon MD [address] [place] [address] Historical LMR Provider 06/24/17 2 Andreina Melissa, IRRIGATOR [address] [place] [address] Historical LMR Provider 06/24/17 documented as of this encounter Additional Source Comments The information contained in this document represents components of the legal health record. It is not the complete legal health record.[facility]
--- OUTSIDE RECORDS SUMMARY | 2025-05-04 10:15 | XMS_ITS | Encounter Summary ---
Author Organization [facility] Address [facility] [address] [place] [address] Phone Care Team Providers Care Personal Investment Adviser Name Role Phone MayaHi orellanadanyell Lugo DO Unavailable Nicky Lopez MD Unavailable [phone] Addie Castellon MD Unavailable [phone] Andreina Melissa THERAPIST Unavailable [phone] Andreina Melissa THERAPIST Primary Care Provider Diamond Rosa THERAPIST Primary Care Provider + Encounter Details Date Type Department Care Team (Late st Contact Info) Description 05/09/2020 Ancillary Orders Virtual Department [address] [place] [address] Andreina Melissa, THERAPIST [address] [place], [place] [phone] Asymptomatic menopausal state Social History Tobacco Use Types Packs/Day Years [...] st Contact Info) Description 11/06/2024 Procedure Pass [address] [address] 05/14/2025 9:00 AM EDT Appointment [address] [address] Diamond Rosa NP [address] [place] [address] documented as of this encounter Results * BD DXA AXIAL (SPINE) WITH HIP (06/03/2020 1:33 PM EDT) Anatomical Region Laterality Modality Bone Density Bone Density 06/03/2020 2:57 PM EDT Impressions 06/03/2020 3:00 PM EDT Normal bone mineral density with interval decrease in the right hip since 2007. POS - [id number] Narrative 06/03/2020 3:00 PM EDT This is a 64-year-old postmenopausal white female who is not currently on hormonal therapy and does not take calcium supplements. She describes a perceived height loss of unknown severity.. Evaluation of the lumbar spine and hips was performed and felt to be technically adequate with comparison made to the documented levels of the 2008 study. Total bone mineral density in the L1-L4 vertebral bodies was calculated at gm/cm2 with a T-score of 0 and Z-score of , falling within the WHO classification of normal, without significant interval change from 2008. Total bone mineral density in the right hip was calculated at 0.849 gm/cm2 with a T-score of -0.8 and Z-score of falling within the WHO classification of normal, representing an interval decline of 6.2% since 2008. Total bone mineral density in the left hip was calculated at 0.901 gm/cm2 with a T-score of -0.3 and Z-score of 1.0 falling within the WHO classification of normal, without significant interval change from 2008. Procedure Note Zelalem Mcgrath MD - 06/03/2020 This is a 64-year-old postmenopausal white female who is not currently onhormonal therapy and does not take calcium supplements. She describes aperceived height loss of unknown severity.. Evaluation of the lumbar spine and hips was performed and felt to betechnically adequate with comparison made to the documented levels of [id number] study. Total bone mineral density in the L1-L4 vertebral bodies was calculated atgm/cm2 with a T-score of 0 and Z-score of , falling within the WHOclassification of normal, without significant interval change from 2007. Total bone mineral density in the right hip was calculated at 0.849 gm/tx0ndxe a T-score of -0.8 and Z-score of falling within the WHOclassification of normal, representing an interval decline of 6.2% [id number]. Total bone mineral density in the left hip was calculated at 0.901gm/cm2 with a T-score of -0.3 and Z-score of 1.0 falling within the WHOclassification of normal, without significant interval change from 2007. IMPRESSION: Normal bone mineral density with interval decrease in the right hip [id number]. POS - [id number] Andreina Melissa NP IMG BD BONE DENSITY DEXA Fin al Result documented in this encounter Visit Diagnoses Diagnosis Asymptomatic menopausal state Asymptomatic menopausal state documented in this encounter Care Teams Personal Investment Adviser Relationship Specialty Start Date End Date Andreina Melissa, JUAN [address] [place] [address] PCP - General Family Medicine 09/20/17 09/05/23 Diamond Rosa NP [address] [place] [address] PCP - General Family Medicine 09/06/23 Elvin Overton DO [address] [place] [address] [place] [address] Historical LMR Provider 06/24/17 09/16/21 Nicky Lopez MD [facility], [address] [place] [address] [email or web address] Historical LMR Provider 06/24/17 Addie Castellon MD [address] [place] [address] [email or web address] Historical LMR Provider 06/24/17 2 Andreina Melissa NP [address] [place] [address] Historical LMR Provider 06/24/17 documented as of this encounter Additional Source Comments The information contained in this document represents components of the legal health record. It is not the complete legal health record.[facility]
--- OUTSIDE RECORDS SUMMARY | 2025-05-04 10:15 | XMS_ITS | Encounter Summary ---
Author Organization [facility] Address [address] [place] [address] [place] [address] Phone Care Team Providers Care Electric Drill Operator Name Role Phone Elvin Overton DO Unavailable Nicky Lopez MD Unavailable [phone] Addie Castellon MD Unavailable [phone] Andreina Melissa LOGGING SUPERVISOR Unavailable [phone] Elvin Overton DO Primary Care Provider [phone] Andreina Melissa LOGGING SUPERVISOR Primary Care Provider Diamond Rosa LOGGING SUPERVISOR Primary Care Provider + Encounter Details Date Type Department Care Team (Late st Contact Info) Description 09/17/2017 Transcribe Orders [facility] [address] [place] [address] Andreina Melissa, LOGGING SUPERVISOR [address] [place] [address] Cough (Primary Dx) Social History Tobacco Use Types Packs/Day Years Used Date Smoking Tobacco: Never Assessed Comments Unknown Sex and Gender Information Value Date Recorded Sex Assigned at Female 08/07/2018 8:38 PM EST Legal Sex Female 9:57 PM EDT Gender Identity Female 08/07/2018 8:38 PM EST Sexual Orientation Straight 08/07/2018 8: 38 PM EST documented as of this encounter Plan of Treatment Upcoming Encounters Date Type Department Care Team (Late st Contact Info) Description 11/06/2024 Procedure Pass [address] [address] 05/14/2025 9:00 AM EDT Appointment [address] [address] Diamond Rosa, JUAN [address] [place] [address] documented as of this encounter Results * Pulmonary Function Test Reason for Exam: Cough; Type of PFT Test: Spirometry with bronchodilator, Spirometry while seated and supine, Lung Volumes, DLCO; Performing Location: [facility] (09/20/2017 11:56 AMEST) FEV1 liters FVC liters FEV1/FVC % TLC liters DLCO ml/mmHg sec Anatomical Region Laterality Modality Other Narrative 09/20/2017 11:56 AM EST Please see PFT interpretation in the Notes activity. Service date 09/20/2017 us Andreina Melissa NP PFT ORDERABLES Final Result documented in this encounter Visit Diagnoses Diagnosis Cough- Primary Cough documented in this encounter Care Teams Electric Drill Operator Relationship Specialty Start Date End Date Elvin Overton DO [address] [place] [address] PCP - General Family Medicine 08/06/17 09/19/17 Andreina Melissa NP [address] [place] [address] PCP - General Family Medicine 09/20/17 09/05/23 Diamond Rosa, JUAN [address] [place] [address] PCP - General Family Medicine 09/06/23 Elvin Overton DO [address] [place] [address] [place] [address] [email or web address] Historical LMR Provider 06/24/17 09/16/21 Nicky Lopez MD [address] [place] [address], [address] [place] [address] Historical LMR Provider 06/24/17 Addie Castellon MD [address] [place] [address] [email or web address] Historical LMR Provider 06/24/17 2 Andreina Melissa NP [address] [place] [address] Historical LMR Provider 06/24/17 documented as of this encounter Additional Source Comments The information contained in this document represents components of the legal health record. It is not the complete legal health record.[facility]
--- OUTSIDE RECORDS SUMMARY | 2025-05-04 10:15 | XMS_ITS | Encounter Summary ---
Author Organization [facility] Address [facility] [employer] [address] [address] Phone Care Team Providers Care Direct Casting Operator Name Role Phone Andreina Melissa TELEPHONE STATION REPAIRER Unavailable [phone] Andreina Melissa TELEPHONE STATION REPAIRER Primary Care Provider [phone] Diamond Rosa TELEPHONE STATION REPAIRER Primary Care Provider + Encounter Details Date Type Department Care Team (Late st Contact Info) Description 10/26/2021 Procedure Pass [address] [address] Social History Tobacco Use Types Packs/Day Years [...] st Contact Info) Description 11/06/2024 Procedure Pass [address] [address] 05/14/2025 9:00 AM EDT Appointment [address] [address] Diamond Rosa, JUAN [address] [place] [address] documented as of this encounter Visit Diagnoses Not on filedocumented in this encounter Care Teams Direct Casting Operator Relationship Specialty Start Date End Date Andreina Melissa TELEPHONE STATION REPAIRER PCP - General Family Medicine 09/20/17 09/05/23 Diamond Rosa NP [address] [place] [address] PCP - General Family Medicine 09/06/23 Andreina Melissa NP Historical LMR Provider 06/24/17 documented as of this encounter Additional Source Comments The information contained in this document represents components of the legal health record. It is not the complete legal health record.[facility]
--- OUTSIDE RECORDS SUMMARY | 2025-05-04 10:15 | XMS_ITS | Encounter Summary ---
Author Organization [facility] Address Formerly [facility] [address] [place] [address] Phone Care Team Providers Care Batch Weigher Name Role Phone MayaElvin orellana Brittney DO Unavailable Nicky Lopez MD Unavailable [phone] Addie Castellon MD Unavailable [phone] Andreina Melissa LUGGER Unavailable [phone] Andreina Melissa LUGGER Primary Care Provider Diamond Rosa LUGGER Primary Care Provider + Encounter Details Date Type Department Care Team (Late st Contact Info) Description 05/09/2020 Ancillary Orders Virtual Department [address] [place] [address] Andreina Melissa, LUGGER [address] [place], [place] [phone] Breast screening Social History Tobacco Use Types [...] st Contact Info) Description 11/06/2024 Procedure Pass [address] [address] 05/14/2025 9:00 AM EDT Appointment [facility] [address] [place] [address] Diamond Rosa NP [address] [place] [address] documented as of this encounter Results * [...] There are scattered fibroglandular densities. Andreina Melissa LUGGER IMG MG EXAMS Final Result documented in this encounter Visit Diagnoses Diagnosis Breast screening Breast screening, unspecified Breast screening Breast screening, unspecified documented in this encounter Care Teams Batch Weigher Relationship Specialty Start Date End Date Andreina Melissa NP [address] [place] [address] PCP - General Family Medicine 09/20/17 09/05/23 Diamond Rosa NP [address] [place] [address] PCP - General Family Medicine 09/06/23 Elvin Overton DO [address] [place] [address] Historical LMR Provider 06/24/17 09/16/21 Nicky Lopez MD [address] [place] [address], 2[address] [place] [address] Historical LMR Provider 06/24/17 Addie Castellon MD [address] [place] [address] Historical LMR Provider 06/24/17 2 Andreina Melissa, LUGGER [address] [place] [address] Historical LMR Provider 06/24/17 documented as of this encounter Additional Source Comments The information contained in this document represents components of the legal health record. It is not the complete legal health record.[facility]
--- OUTSIDE RECORDS SUMMARY | 2025-05-04 10:15 | XMS_ITS | Encounter Summary ---
Author Organization [facility] Address [address] [place] [address] [place] [address] Phone Care Team Providers Care Seeing Eye Dog Teacher Name Role Phone Elvin Overton DO Unavailable Nicky Lopez MD Unavailable [phone] Addie Castellon MD Unavailable [phone] Andreina Melissa WOOD CLUB NECK WHIPPER Unavailable [phone] Andreina Melissa WOOD CLUB NECK WHIPPER Primary Care Provider Diamond Rosa WOOD CLUB NECK WHIPPER Primary Care Provider + Reason for Referral * MRI/CAT Scan - Closed Specialty Diagnoses / Procedures Referred By Derrick alonso Referred To Contact Radiology Diagnoses Chest pain, unspecified type Procedures NC Myocardial Perfusion Exercise Multiple Eduar Roe MD Phone: tel: fax: mailto:[email or web address] Referral ID Status Reason Start Date Expiration Date Visits Re quested Visits Authorized [id number] Closed 02/05/2018 02/05/2019 1 1 Encounter Details Date Type Department Care Team (Latest Contact Info) Description 02/05/2018 Transcribe Orders [facility] [address] [place] [address] 3rd Floor, [address] [place] [address] Eduar Roe MD [address] [place] [address], [address] [place] [address] [email or web address] Chest pain, unspecified type (Primary Dx) Social History Tobacco Use Types [...] st Contact Info) Description 11/06/2024 Procedure Pass [address] [address] 05/14/2025 9:00 AM EDT Appointment [address] [address] Diamond Rosa, JUAN [address] [place] [address] documented as of this encounter Results * NC Myocardial Perfusion Exercise Multiple (03/04/2018 9:07 AM EDT) Nuc Stress EF 57 % LV Systolic Volume 55 mL LV Diastolic Volume 116 mL EF 52 % LV Systolic Volume Index 56 mL/m2 LV Diastolic Volume Index 132 mL/m2 Anatomical Region Laterality Modality Heart, Vascular Ultrasound Narrative 03/06/2018 2:08 PM EDT Probably normal study There is evidence of breast attenuation but this improves on prone imaging. There is no evidence of myocardial infarction or ischemia. Normal LV size and function with no regional wall motion abnormalities. Very low likelihood of hemodynamically significant coronary artery disease. Low risk study for myocardial events or cardiac in the next two years. Nuclear Study Quality Overall image quality is good. Two day stress/rest study.. Diaphragmatic attenuation artifact is present. Study successfully gated. Response to Stress BMI:27.09 Patient was unable to walk on TM due to hypertension. Test preformed using .4mg Lexiscan IV immediately followed by the injection of the Tc99m Sestamibi which the patient tolerated infusion without complications. Test terminated due to completion of protocol. SUMMARY: 1. RESTING EKG: sinus bradycardia HR 46 bpm 2. EXERCISE EKG: No EKG changes that meet criteria for ischemia. 3. SYMPTOMS: Patient reported 7/10 central chest pressure, shortness of breath, and lightheadedness with Lexiscan injection. Symptoms resolved by mid recovery. 4. PHYSIOLOGY: Appropriate HR and BP response to Lexiscan injection. 5. ARRHYTHMIA: No ectopy noted. CONCLUSION: Equivocal EKG portion of pharmacologic nuclear stress test with symptoms concerning for angina, but without EKG changes diagnostic of ischemia. Vital signs stable and returned to baseline prior to discharge from the lab. Of note, patient had resting hypertension at 180/102. Recommend increasing antihypertensive regimen and advised her to keep a home BP log. Report reviewed with Dr. Hernandez. Nuclear images and report to follow. Eduarda Martinez PA-C . Perfusion Comments The TID ratio was 1.1. Stress Function Comments Post-stress ejection fraction was 57%. Stress end diastolic index: 132 mL/m2. Stress end systolic index: 56 mL/m2. Nuclear Prior Study There is no prior study available for comparison. Rest Function Comments Resting ejection fraction was 52%. Rest end diastolic index: 116 mL. Rest end systolic index: 55 mL. Perfusion Scoring Stress Summed Score: 0 Percent Normal: 0.00% The left ventricular perfusion is normal. Perfusion Scoring Resting Summed Score: 0 Percent Normal: 0.00% The left ventricular perfusion is normal. Eduar Roe MD CV NM CARDIAC Final Result documented in this encounter Visit Diagnoses Diagnosis Chest pain, unspecified type- Primary Chest pain, unspecified type documented in this encounter Care Teams Seeing Eye Dog Teacher Relationship Specialty Start Date End Date Andreina Melissa NP [address] [place] [address] PCP - General Family Medicine 09/20/17 09/05/23 Diamond Rosa NP [address] [place] [phone] PCP - General Family Medicine 09/06/23 Elvin Overton DO [address] [place] [address] [email or web address] Historical LMR Provider 06/24/17 09/16/21 Nicky Lopez MD [address] [place] [address], 2nd [place] [address] [email or web address] Historical LMR Provider 06/24/17 Addie Castellon MD [address] [place] [address] [email or web address] Historical LMR Provider 06/24/17 2 Andreina Melissa NP [address] [place] [address] Historical LMR Provider 06/24/17 documented as of this encounter Additional Source Comments The information contained in this document represents components of the legal health record. It is not the complete legal health record.[facility]
--- OUTSIDE RECORDS SUMMARY | 2025-05-04 10:16 | XMS_ITS | Encounter Summary ---
Author Organization [facility] Address [address] [place] [address] Phone Care Team Providers Care Vision Rehabilitation Therapist Name Role Phone Andreina Melissa COOLER TENDER Unavailable [phone] Diamond Rosa COOLER TENDER Primary Care Provider + Encounter Details Date Type Department Care Team (Late st Contact Info) Description 06/17/2024 Procedure Pass [facility] Admitting Dept Virtual Department [address] [place] [address] Social History Tobacco Use Types Packs/Day Years Used Date Smoking Tobacco: Former Cigarettes Q uit: 02/12/1970 Smokeless Tobacco: Never Alcohol Use Standard Drinks/Week Comments Yes 0 (1 standard drink = 0.6 oz pur e alcohol) occasional Education Answer Date Recorded Are you interested in more education? Not on peter e 01/04/2023 Are you concerned about learning? Not on file 01/04/2023 No 01/04/2023 No 01/04/2023 Digital Access Answer Date Recorded No 02/04/2023 No 02/04/2023 Reliable internet access at home? Not on file 02/04/2023 Device with a working camera? Not on file Comments No Sex and Gender Information Value Date Recorded Sex Assigned at Female 08/07/2018 8:38 PM EST Legal Sex Female 9:57 PM EDT Gender Identity Female 08/07/2018 8:38 PM EST Sexual Orientation Straight 08/07/2018 8: 38 PM EST documented as of this encounter Plan of Treatment Upcoming Encounters Date Type Department Care Team (Late st Contact Info) Description 11/06/2024 Procedure Pass [facility], [address] [address] 05/14/2025 9:00 AM EDT Appointment [address] [address] Diamond Rosa NP [address] [place] [address] documented as of this encounter Visit Diagnoses Not on filedocumented in this encounter Care Teams Vision Rehabilitation Therapist Relationship Specialty Start Date End Date Diamond Rosa NP [address] [place] [address] PCP - General Family Medicine 09/06/23 Andreina Melissa NP Historical LMR Provider 06/24/17 documented as of this encounter Additional Source Comments The information contained in this document represents components of the legal health record. It is not the complete legal health record.[facility]
--- OUTSIDE RECORDS SUMMARY | 2025-05-04 10:16 | XMS_ITS | Clinical Summary ---
Author Organization [employer] Address [address] [facility] [address] [place] [address] Care Team Providers Care Value Stream Manager Name Role Phone Diamond Rosa ALEXIA Primary Care Provider [phone] Allergies No known active allergies Medications * [...] 100 MG tabletIndications: JENNY (generalized anxiety disorder) TAKE 1 TABLET BY MOUTH EVERY DAY IN THE MORNING 90 tablet 3 5 Active Active Problems Problem Noted Date [...] Type Department Care Team Description 03/31/[address] [phone] Diamond Rosa FNP JENNY (generalized anxiety disorder) [...] Description 07/16/2025 9:00 AM EST Office Visit [address] [address] Diamond Rosa FNP [address] [place] [address] Health Maintenance Due Date Last Done Comments [...] Additional history exists Influenza Vaccine (#1) 2025 4, 05/03/2024, 06/12/2022, Additional history exists Depression Monitoring [...] Routine 02/15/2025 Primary osteoarthritis involving multiple joints MAMMOGRAPHY Routine 11/27/2023 LIPID PANEL, STANDARD Routine 02/14/2023 8:56 AM EDT Primary hypertension Mixed hyperlipidemia from Last 3 Months or Most Recently Relevant to Health Maintenance Results * Referral to Hand Surgery (02/15/2025) us Diamond Rosa DATA ANALYTICS DEVELOPER OUTPATIENT REFERRAL ORDERABLES Final Result * Mammography (11/27/2023) HM Mammogram BIRADS 2 Normal, Abnormal, BIRADS 1 , BIRADS 2 Anatomical Region Laterality Modality Other Historical Provider HEALTH MAINTENANCE Final Result * Lipid Panel, Standard (02/14/2023 8:56 AM EDT) Pathologist [facility] Cholesterol, Total 190 (<200) MG/DL [facility] Triglyceride (mg/dL) in Serum/Plasma 121 (<150) MG/DL [facility] HDL Cholesterol 49 (>39) MG/DL [facility] LDL Cholesterol, Calculated 117 (0-130) MG/DL [facility] Non HDL Chol. (LDL+VLDL) 141 (<160) MG/DL [facility] Comment: Testing performed or reported by [facility], a Service of [facility], [address] [place] [address] Harvey Issa MD, Database Support [facility]# [id number] Blood Venous blood specimen / Unknown 02/14/2023 8:56 AM EDT 02/14/2023 9:04 AM EDT Diamond Rosa DATA ANALYTICS DEVELOPER LAB BLOOD ORDERABLES Final Res ult [facility] [address] [place] [address] from Last 3 Months or Most Recently Relevant to Health Maintenance Insurance [facility] MEDICARE [facility] MEDICARE SUPPLEMENT Care Teams Value Stream Manager Relationship Specialty Start Date End Date Diamond Rosa FNP PCP - General Family Medicine 08/20/22
--- OUTSIDE RECORDS SUMMARY | 2025-05-04 10:16 | XMS_ITS | Clinical Summary ---
Author Organization [facility] Address [address] [email or web address] [facility] [address] [place] [address] Phone Care Team Providers Care Quickbooks Bookkeeper Name Role Phone Andreina Melissa PARTS SALES ADVISOR Unavailable [phone] Diamond Rosa PARTS SALES ADVISOR Primary Care Provider + Allergies No known active allergies Medications simvastatin (ZOCOR) 20 MG tablet Take 1 tablet by mouth every evening. Active metoprolol succinate (TOPROL-XL) 100 MG 24 hr tablet 50 mg daily. Orally Active sertraline (ZOLOFT) 25 MG tablet Take 50 mg by mouth daily. 08/09/2010 Active omega-3 fatty acids (FISH OIL) 500 mg Cap Take 1 capsule by mouth daily. with a meal Active albuterol 90 mcg/actuation inhaler Inhale 1 puff into the lungs every 4 (four) hours. Active cloNIDine HCl (CATAPRES) 0.1 MG tablet Take 0.1 mg by mouth 2 (two) times a day. Active fluticasone/marcus anterol (BREO ELLIPTA INHL) Inhale 1 puff into the lungs daily. Active losartan (COZAAR) 100 MG tabletIndicatio ns:Medication dose increased Take 1 tablet (100 mg total) by mouth daily. 90 tablet 3 05/29/2018 Active atorvastatin (LIPITOR) 40 MG tablet Take 40 mg by mouth daily. Active Active Problems Problem Noted Date Diagnosed Date Chest tightness 03/07/2018 Assessment & Plan (03/21/2018 9:58 AM EDT): Resolved with better blood pressure control and decrease of metoprolol. Assessment & Plan (03/07/2018 9:54 AM EDT): Recent pharmacologic nuclear stress test without evidence of myocardial infarction or ischemia. She continues to get a mild chest tightness and shortness of breath with exertion. Not likely cardiac at this time. Could be due to high doses of metoprolol exacerbating her asthma. I'm going to increase her losartan to 100 mg daily and cut her metoprolol in half to 100 mg daily. We will likely try to reduce this further. Check a basic metabolic panel in 1 week. Follow-up in 2 weeks for BP check and reassessment of her symptoms. If her symptoms do not improve with better blood pressure control and medication adjustments consider diagnostic cardiac cath. Anxiety 03/07/2018 Assessment & Plan (03/07/2018 9:56 AM EDT): She has been on sertraline for a long time and does not think this is working. Recommend follow-up with primary care for alternate SSRI or consider Wellbutrin. High cholesterol 02/12/2018 Assessment & Plan (02/12/2018 2:57 PM EDT): She going to have a lipid profile drawn in the next several days. Hypertensive disorder 02/12/2018 Assessment & Plan (03/21/2018 9:57 AM EDT): Well-controlled with recent medication changes. Continue losartan 100 mg daily and metoprolol 100 mg nightly. Goal SBP less than 130. Follow-up 6 months. Assessment & Plan (03/07/2018 9:55 AM EDT): Well-controlled today but is having labile blood pressures at home, she does not take her metoprolol if her blood pressure is low. She is also on clonidine which could be contributing to this. I'm going to increase her losartan and decrease her metoprolol for a goal SBP less than 130. She was educated on the signs and symptoms of hypotension. And was advised to seek emergency medical care if she has a blood pressure of 200/110 with associated headache or vision changes. Assessment & Plan (02/12/2018 2:57 PM EDT): Remains elevated so I took the liberty of adding losartan at 50 mg a day and if tolerated would increase that to 100. We may be a little lower her metoprolol which would be something of a risk for her asthma. Precordial pain 02/12/2018 Assessment & Plan (02/12/2018 2:56 PM EDT): Her history is certainly consistent with ischemic [...] and voltage criteria for left ventricular hypertrophy. Mild intermittent asthma without complication Assessment & Plan (03/07/2018 9:55 AM EDT): No active wheezing. Continue inhalers. Family History Medical History Relation Comments Arthritis Father Heart disease Father Emphysema Mother Breast cancer Paternal Grandmother Relation Status Comments Father Mother Alive Paternal Grandmother Social History Tobacco Use Types Packs/Day Years Used Date Smoking Tobacco: Former Cigarettes Q uit: 02/12/1970 Smokeless Tobacco: Never Tobacco Cessation:Counseling Given: Not Answered Alcohol Use Standard Drinks/Week Comments Yes 0 [...] Orientation Straight 08/07/2018 8: 38 PM EST Last Filed Vital Signs Vital Sign Reading Time Taken Comments Blood Pressure 142/64 08/07/2018 11:00 PM EST Pulse 60 08/07/2018 11:00 PM EST Temperature 36.8 C (98.3 F) 08/07/2018 8:39 PM EST Respiratory Rate 20 08/07/2018 8:39 PM EST Oxygen Saturation 96% 08/07/2018 11: 00 PM EST Inhaled Oxygen Concentration - - Weight 79.3 kg (174 lb 12.8 oz) 11/09/2019 8:24 AM EST Height 163.8 cm (5' 4.5 ) 11/09/2019 8:24 AM EST Body Mass Index 29.54 11/09/2019 8:24 AM EST Plan of Treatment Upcoming Encounters Date Type Department Care Team (Late st Contact Info) Description 11/06/2024 Procedure Pass [address] [address] 05/14/2025 9:00 AM EDT Appointment [address] [address] Diamond Rosa, JUAN [address] [place] [address] Health Maintenance Due Date Last Done Comments BLOOD PRESSURE 1953 DEPRESSION SCREENING 1965 SMOKING Hx and SMOKELESS TOBACCO SCREENING 1966 HEPATITIS C SCREENING 1971 PNEUMOCOCCAL VACCINES (50+ years) (1 of 2 - PCV) 1972 COLOGUARD 1998 COLONOSCOPY 1998 COLORECTAL CANCER SCREENING 1998 FIT TEST 1998 FOBT 1998 SIGMOIDOSCOPY 1998 VIRTUAL COLONOSCOPY 1998 RSV VACCINE (1 - Risk 60-74 years 1-dose series) 2013 ZOSTER VACCINES (3 of 3) 08/05/2019 06/10/2019, 11/07 CREATININE LEVEL 03/19/2020 03/19/2019, 08/07/2018 POTASSIUM LEVEL 03/19/2020 03/19/2019, 08/07/2018 Adult Td,Tdap Booster 05/29/2022 05/29/2012 COVID-19 VACCINE (3 - 2023- season) 2024 11/25/2020, 10/28/2020 MAMMOGRAM 11/24/2025 11/25/2023, 11/07, 11/20/2021, Additional history exists LIPID PANEL 02/15/2028 02/14/2023, 10/19/2010 OSTEOPOROSIS SCREENING INITIAL (ONE-TIME) Completed 06/03/2020 HEPATITIS A VACCINES Aged Out No long er eligible based on patient's age to complete this topic HIB VACCINES Aged Out No longer eligi ble based on patient's age to complete this topic MENINGOCOCCAL VACCINES (ACWY) Aged Out No longer eligible based on patient's age to complete this topic MENINGOCOCCAL VACCINES (B) Aged Out N o longer eligible based on patient's age to complete this topic Medical Devices Not on file Procedures Procedure Name Priority Date/Time Associated Diagnosis Comments BI MAMMOGRAM SCREENING WITH TOMOSYNTHESIS WITH CAD (BILATERAL) Routine 11/25/2023 9:51 AM EDT Breast screening BD DXA AXIAL (SPINE) WITH HIP Routine 06/03/2020 1:33 PM EDT Asymptomatic menopausal state COMPREHENSIVE METABOLIC PANEL Routine 03/19/2019 2:30 PM EDT Bloating Malabsorption due to intolerance, not elsewhere classified OUTSIDE LDL Routine 10/19/2010 from Last 3 Months or Most Recently Relevant to Health Maintenance Results * BI MAMMOGRAM SCREENING WITH TOMOSYNTHESIS WITH CAD (BILATERAL) (11/25/2023 9:51 AM EDT) Anatomical Region Laterality Modality Breast Left, Breast Right, Breast Bilateral Bila teral Mammography 11/27/2023 6:18 AM EDT Impressions 11/27/2023 6:21 AM EDT No mammographic evidence of malignancy in either breast. Annual screening mammography is recommended. BI-RADS 2 BENIGN The patient will be notified of the results and recommendations. Narrative 11/27/2023 6:21 AM EDT BI MAMMOGRAM SCREENING WITH TOMOSYNTHESIS WITH CAD (BILATERAL) Additional patient information: Screening. COMPARISON: Comparison is made with relevant prior imaging. Breast composition: There are scattered areas of fibroglandular density. FINDINGS: Previous reduction mammoplasty. There are scattered and grouped punctate and coarse heterogeneous calcifications bilaterally, unchanged. No abnormal masses, suspicious calcifications, or other significant findings are identified mammographically in either breast. There has been no significant interval change. Procedure Note Merly Lopez MD - 11/27/2023 BI MAMMOGRAM SCREENING WITH TOMOSYNTHESIS WITH CAD (BILATERAL) Additional patient information: Screening. COMPARISON: Comparison is made with relevant prior imaging. Breast composition: There are scattered areas of fibroglandular density. FINDINGS: Previous reduction mammoplasty. There are scattered and grouped punctateand coarse heterogeneous calcifications bilaterally, unchanged. No abnormal masses, suspicious calcifications, or other significantfindings are identified mammographically in either breast. There has been no significant interval change. IMPRESSION: No mammographic evidence of malignancy in either breast. Annual screening mammography is recommended. BI-RADS 2 BENIGN The patient will be notified of the results and recommendations. us Diamond Rosa PARTS SALES ADVISOR IMG MG EXAMS Final Re sult * BD DXA AXIAL (SPINE) WITH HIP (06/03/2020 1:33 PM EDT) Anatomical Region Laterality Modality Bone Density Bone Density 06/03/2020 2:57 PM EDT Impressions 06/03/2020 3:00 PM EDT Normal bone mineral density with interval decrease in the right hip since 2008. POS - [id number] Narrative 06/03/2020 3:00 PM [...] representing an interval decline of 6.2% since 2007. Total bone mineral density in the left hip was calculated at 0.901 gm/cm2 with a T-score of -0.3 and Z-score of 1.0 falling within the WHO classification of normal, without significant interval change from 2007. Procedure Note Zelalem Mcgrath MD - 06/03/2020 This is a 64-year-old postmenopausal white female who is not currently onhormonal therapy and does not take calcium supplements. She describes aperceived height loss of unknown severity.. Evaluation of the lumbar spine and hips was performed and felt to betechnically adequate with comparison made to the documented levels of [id number] study. Total bone mineral density in the L1-L4 vertebral bodies was calculated atgm/cm2 with a T-score of 0 and Z-score of , falling within the WHOclassification of normal, without significant interval change from 2007. Total bone mineral density in the right hip was calculated at 0.849 gm/ht5eftw a T-score of -0.8 and Z-score of falling within the WHOclassification of normal, representing an interval decline of 6.2% [id number]. Total bone mineral density in the left hip was calculated at 0.901gm/cm2 with a T-score of -0.3 and Z-score of 1.0 falling within the WHOclassification of normal, without significant interval change from 2007. IMPRESSION: Normal bone mineral density with interval decrease in the right hip [id number]. POS - [id number] us Andreina Melissa NP IMG BD BONE DENSITY DEXA Fin al Result * Comprehensive metabolic panel (03/19/2019 2:30 PM EDT) SODIUM 142 133 - 146 mmol/L [facility] POTASSIUM 4.4 3.3 - 5.1 mmol/L [facility] CHLORIDE 104 96 - 108 mmol/L [facility] CO2 24 21 - 35 mmol/L [facility] BUN 11 6 - 19 mg/dL [facility] CREATININE 0.60 0.5 - 1.5 mg/dL [facility] GLUCOSE 86 70 - 99 mg/dL [facility] ALBUMIN 4.3 3.9 - 4.8 g/dL [facility] TOTAL PROTEIN 7.9 6.5 - 8.0 g/dL [facility] CALCIUM 9.6 8.4 - 10.3 mg/dL [facility] ALKALINE PHOSPHATASE 85 39 - 117 U/L [facility] TOTAL BILIRUBIN 0.5 0.0 - 1.2 mg/dL [facility] AST 26 0 - 37 U/L [facility] ALT 25 0 - 40 U/L [facility] GLOBULIN 3.6 1 - 4.8 g/dL [facility] EGFR 96 >59 mL/min/1.7 3m2 [facility] Comment:If patient is black, multiply result by 1.159. Estimated glomerular filtration rate calculated using the CKD-EPI equation. ANION GAP 18 10 - 20 mmol/L [facility] Blood 03/19/2019 2:30 PM EDT 03/19/2019 6:44 PM EDT Rebecca Velasquez NP LAB BLOOD ORDERABLES Final Result [facility] [address] [place] [address] * Outside LDL (10/19/2010) LDL - External 181 50 - 250 mg/ml us Historical Provider LAB BLOOD ORDERABLES Mell l Result from Last 3 Months or Most Recently Relevant to Health Maintenance Insurance MEDICARE PART A & B [facility] MEDICARE ENHANCE SUPPLEMENT MEDICARE PART A & B [facility] MEDICARE ENHANCE SUPPLEMENT MEDICARE PART A & B MEDICARE PART A & B MEDICARE PART A & B MEDICARE ENHANCE SUPPLEMENT MEDICARE PART A & B MEDICARE PART A & B MEDICARE ENHANCE SUPPLEMENT MEDICARE PART A & [place] [address] [place] [address] MEDICARE ENHANCE SUPPLEMENT MEDICARE PART A & B [facility] MEDICARE ENHANCE SUPPLEMENT Care Teams Quickbooks Bookkeeper Relationship Specialty Start Date End Date Diamond Rosa NP [address] [place] [address] PCP - General Family Medicine 09/06/23 Andreina Melissa NP Historical LMR Provider 06/24/17 Additional Source Comments The information contained in this document represents components of the legal health record. It is not the complete legal health record.[facility]
--- OUTSIDE RECORDS SUMMARY | 2025-05-04 10:16 | XMS_ITS | Encounter Summary ---
Author Organization [facility] Address [facility] [employer] [facility] [address] [place] [address] Phone Care Team Providers Care Engineering Supplies Sales Name Role Phone Elvin Overton DO Unavailable Nicky Lopez MD Unavailable Addie Castellon MD Unavailable Andreina Melissa COLLATERAL ANALYST Unavailable Andreina Melissa COLLATERAL ANALYST Primary Care Provider Diamond Rosa COLLATERAL ANALYST Primary Care Provider + Encounter Details Date Type Department Care Team (Late st Contact Info) Description 07/02/2018 Ancillary Orders Virtual Department [address] [place] [address] Andreina Melissa, COLLATERAL ANALYST [address] [place] [address] [id number] Breast screening Social History Tobacco Use Types Packs/Day Years Used Date Smoking Tobacco: Former Cigarettes Q uit: 02/12/1982 Smokeless Tobacco: Never Comments Unknown Sex and Gender Information Value Date Recorded Sex Assigned at Female 08/07/2018 8:38 PM EST Legal Sex Female 9:57 PM EDT Gender Identity Female 08/07/2018 8:38 PM EST Sexual Orientation Straight 08/07/2018 8: 38 PM EST documented as of this encounter Plan of Treatment Upcoming Encounters Date Type Department Care Team (Late st Contact Info) Description 11/06/2024 Procedure Pass [address] [address] 05/14/2025 9:00 AM EDT Appointment [facility] [address] [place] [address] Diamond Rosa NP [address] [place] [address] documented as of this encounter Results * BI MAMMOGRAM SCREENING WITH TOMOSYNTHESIS WITH CAD (BILATERAL) (07/24/2018 9:58 AM EST) Anatomical Region Laterality Modality Breast Left, Breast Right, Breast Bilateral Bila teral Mammography 07/24/2018 12:4 1 PM EST Impressions 07/24/2018 12:49 PM EST No findings suspicious for malignancy. In the absence of a worrisome palpable abnormality, annual screening mammography is recommended. BI-RADS CATEGORY: 2 - Benign finding. DENSITY: There are scattered fibroglandular densities. POS CDHMAMA Narrative 07/24/2018 12:49 PM EST COMPARISON: 10/11/2011 through 05/31/2017. Bilateral 3-D tomosynthesis with 2-D reconstructions in the CC and MLO projection of each breast was obtained. Computer-aided detection system also utilized. No new mass, asymmetry, architectural distortion or suspicious calcifications have become apparent on either side. Chronic bilateral calcifications including a focal cluster of punctate calcifications in the medial aspect of the central left breast do not appear to have changed significantly. Procedure Note Jose Martin Ling MD - 07/24/2018 COMPARISON: 10/11/2011 through 05/31/2017. Bilateral 3-D tomosynthesis with 2-D reconstructions in the CC and MLOprojection of each breast was obtained. Computer-aided detection systemalso utilized. No new mass, asymmetry, architectural distortion or suspiciouscalcifications have become apparent on either side. Chronic bilateral calcifications including a focal cluster of punctatecalcifications in the medial aspect of the central left breast do notappear to have changed significantly. IMPRESSION: No findings suspicious for malignancy. In the absence of a worrisomepalpable abnormality, annual screening mammography is recommended. BI-RADS CATEGORY: 2 - Benign finding. DENSITY: There are scattered fibroglandular densities. POS CDHMAMA Andreina Melissa NP IMG MG EXAMS Final Result documented in this encounter Visit Diagnoses Diagnosis Breast screening Breast screening, unspecified Breast screening Breast screening, unspecified documented in this encounter Care Teams Engineering Supplies Sales Relationship Specialty Start Date End Date Andreina Melissa NP [address] [place] [phone] PCP - General Family Medicine 09/20/17 09/05/23 Diamond Rosa NP [address] [place] [address] PCP - General Family Medicine 09/06/23 Elvin Overton DO [address] [place] [address] Historical LMR Provider 06/24/17 09/16/21 Nicky Lopez MD [address] [place] [address], [address] [place] [address] Historical LMR Provider 06/24/17 Addie Castellon MD [address] [place] [address] Historical LMR Provider 06/24/17 2 Andreina Melissa NP [address] [place] [address] Historical LMR Provider 06/24/17 documented as of this encounter Additional Source Comments The information contained in this document represents components of the legal health record. It is not the complete legal health record.[facility]
--- OUTSIDE RECORDS SUMMARY | 2025-05-04 10:16 | XMS_ITS | Encounter Summary ---
Author Organization [facility] Address [facility] [employer] [address] [address] Phone Care Team Providers Care Cut Out Stitcher Name Role Phone Andreina Melissa PROTECTION CONSULTANT Unavailable [phone] Andreina Melissa PROTECTION CONSULTANT Primary Care Provider [phone] Diamond Rosa PROTECTION CONSULTANT Primary Care Provider + Encounter Details Date Type Department Care Team (Late st Contact Info) Description 09/04/2022 Procedure Pass [address] [address] Social History Tobacco Use Types Packs/Day Years [...] st Contact Info) Description 11/06/2024 Procedure Pass [address] [address] 05/14/2025 9:00 AM EDT Appointment [address] [address] Diamond Rosa, JUAN [address] [place] [address] documented as of this encounter Visit Diagnoses Not on filedocumented in this encounter Care Teams Cut Out Stitcher Relationship Specialty Start Date End Date Andreina Melissa PROTECTION CONSULTANT PCP - General Family Medicine 09/20/17 09/05/23 Diamond Rosa NP [address] [place] [address] PCP - General Family Medicine 09/06/23 Andreina Melissa NP Historical LMR Provider 06/24/17 documented as of this encounter Additional Source Comments The information contained in this document represents components of the legal health record. It is not the complete legal health record.[facility]
--- OUTSIDE RECORDS SUMMARY | 2025-05-04 10:16 | XMS_ITS | Encounter Summary ---
Author Organization [facility] Address [address] [place] [address] Phone Care Team Providers Care Bow Maker Custom Name Role Phone Andreina Melissa BITUMINOUS PAVING MACHINE OPERATOR Unavailable [phone] Diamond Rosa BITUMINOUS PAVING MACHINE OPERATOR Primary Care Provider + Encounter Details Date Type Department Care Team (Late st Contact Info) Description 06/16/2024 Procedure Pass [facility] Admitting Dept Virtual Department [address] [place] [address] Social History Tobacco Use Types Packs/Day Years [...] st Contact Info) Description 11/06/2024 Procedure Pass [facility], [address] [address] 05/14/2025 9:00 AM EDT Appointment [address] [address] Diamond Rosa NP [address] [place] [address] documented as of this encounter Visit Diagnoses Not on filedocumented in this encounter Care Teams Bow Maker Custom Relationship Specialty Start Date End Date Diamond Rosa NP [address] [place] [address] PCP - General Family Medicine 09/06/23 Andreina Melissa NP Historical LMR Provider 06/24/17 documented as of this encounter Additional Source Comments The information contained in this document represents components of the legal health record. It is not the complete legal health record.[facility]
--- OUTSIDE RECORDS SUMMARY | 2025-05-04 10:16 | XMS_ITS | Encounter Summary ---
Author Organization [facility] Address [address] [place] [address] Phone Care Team Providers Care Wood Patternmaker Apprentice Name Role Phone Andreina Melissa DRAMATIC READER Unavailable [phone] Diamond Rosa DRAMATIC READER Primary Care Provider + Encounter Details Date Type Department Care Team (Late st Contact Info) Description 09/06/2023 Procedure Pass [facility], [address] [address] Social History Tobacco Use Types Packs/Day Years [...] st Contact Info) Description 11/06/2024 Procedure Pass [facility], [address] [address] 05/14/2025 9:00 AM EDT Appointment [address] [address] Diamond Rosa NP [address] [place] [address] documented as of this encounter Visit Diagnoses Not on filedocumented in this encounter Care Teams Wood Patternmaker Apprentice Relationship Specialty Start Date End Date Diamond Rosa NP [address] [place] [address] PCP - General Family Medicine 09/06/23 Andreina Melissa NP Historical LMR Provider 06/24/17 documented as of this encounter Additional Source Comments The information contained in this document represents components of the legal health record. It is not the complete legal health record.[facility]
--- OUTSIDE RECORDS SUMMARY | 2025-05-04 10:16 | XMS_ITS | Encounter Summary ---
Author Organization [employer] Address [address] [facility] 7 [place] [address] Care Team Providers Care Hydroelectric Powerplant Supervisor Name Role Phone Diamond Rosa Primary Care Provider [phone] Encounter Details Date Type Department Care Team (Late st Contact Info) Description 11/27/2023 Abstract [facility] [address] [place] [address] Diamond Rosa FNP [address] [place] [address] Social History Tobacco Use Types Packs/Day Years Used Date Smoking Tobacco: Never Smokeless Tobacco: Never Alcohol Use Standard Drinks/Week Comments Not Currently 0 (1 standard drink = 0.6 oz pur e alcohol) Housing Stability Answer Date Recorded What is your housing situation today? I have claire blanchard 06/25/[address] you li ve. Do you have problems with any of the following? None of the above 06/25/2023 Food Insecurity Answer Date Recorded Within the past 12 months, y ou worried that your food would run out before you got money to buy more: Never True 06/25/2023 Within the past 12 months,th e food you bought just didn't last and you didn't have enough money to get more: Never True Transportation Answer Date Recorded In the past 12 months, has l ack of transportation kept you from medical appts, meetings, work or from getting things needed for daily living? No 06/25/2023 Utilities Answer Date Recorded In the past 12 months, has t he electric, gas, oil or water company threatened to shut off services in your home? No 06/25/2023 Depression Answer Date Recorded Patient Health Questionnaire-2 Score 0 10/09/2022 Comments Unknown Sex and Gender Information Value Date Recorded Sex Assigned at Female 10/09/2022 7:56 AM EST Legal Sex Female 12:16 PM EST Gender Identity Female 10/09/2022 7:56 AM EST Sexual Orientation Choose not to disclose 2022 8:53 AM EST documented as of this encounter Plan of Treatment Upcoming Encounters Date Type Department Care Team (Late st Contact Info) Description 07/16/2025 9:00 AM EST Office Visit [facility] [address] [place] [address] Diamond Rosa FNP [address] [place] [address] documented as of this encounter Procedures Procedure Name Priority Date/Time Associated Diagnosis Comments MAMMOGRAPHY Routine 11/27/2023 documented in this encounter Results * Mammography (11/27/2023) Mammogram BIRADS 2 Normal, Abnormal, BIRADS 1 , BIRADS 2 Anatomical Region Laterality Modality Other us Historical Provider HEALTH MAINTENANCE Final Result documented in this encounter Visit Diagnoses Not on filedocumented in this encounter Care Teams Hydroelectric Powerplant Supervisor Relationship Specialty Start Date End Date Diamond Rosa FNP PCP - General Family Medicine 08/20/22 documented as of this encounter
--- OUTSIDE RECORDS SUMMARY | 2025-05-04 10:16 | XMS_ITS | Encounter Summary ---
Author Organization [employer] Address [address] [place] [address] 7 [place] [address] Care Team Providers Care Glass Curvature Gauger Name Role Phone Diamond Rosa ALEXIA Primary Care Provider [phone] Reason for Visit * Reason Comments Med Change Request Encounter Details Date Type Department Care Team ([facility] st Contact Info) Description 12/31/2023 Refill [facility] [address] [place] [phone] Serena Umana FNP 102 [place] [address] Mild intermittent asthma with acute exacerbation Social History Tobacco Use Types Packs/Day Years [...] Description 07/16/2025 9:00 AM EST Office Visit [address] [address] Diamond Rosa FNP 8 [place] [address] documented as of this encounter Visit Diagnoses Diagnosis Mild intermittent asthma with acute exacerbation documented in this encounter Care Teams Glass Curvature Gauger Relationship Specialty Start Date End Date Diamond Rosa FNP PCP - General Family Medicine 08/20/22 documented as of this encounter
--- OUTSIDE RECORDS SUMMARY | 2025-05-04 10:16 | XMS_ITS | Encounter Summary ---
Author Organization [facility] Address [facility] [address] [facility] [address] [place] [address] Phone Care Team Providers Care Rooms Director Name Role Phone MayaElvin orellana Brittney DO Unavailable Nicky Lopez MD Unavailable [phone] Addie Castellon MD Unavailable [phone] Andreina Melissa BRAID CUTTER Unavailable [phone] Andreina Melissa BRAID CUTTER Primary Care Provider Diamond Rosa BRAID CUTTER Primary Care Provider + Encounter Details Date Type Department Care Team (Late st Contact Info) Description 04/30/2019 Ancillary Orders Virtual Department 30 [place] [address] Andreina Melissa, BRAID CUTTER [address] [place], [place] [phone] Breast screening Social History Tobacco Use Types Packs/Day Years Used Date Smoking Tobacco: Former Cigarettes Q uit: 02/12/1982 Smokeless Tobacco: Never Alcohol Use Standard Drinks/Week [...] st Contact Info) Description 11/06/2024 Procedure Pass [address] [address] 05/14/2025 9:00 AM EDT Appointment [facility] 30 [place] [address] Diamond Rosa NP [address] [place] [address] documented as of this encounter Results * BI MAMMOGRAM SCREENING WITH TOMOSYNTHESIS WITH CAD (BILATERAL) (07/29/2019 9:12 AM EST) Anatomical Region Laterality Modality Breast Left, Breast Right, Breast Bilateral Bila teral Mammography 07/29/2019 9:41 AM EST Impressions 07/29/2019 9:45 AM EST No mammographic evidence of malignancy. Recommend routine annual surveillance. BI-RADS CATEGORY: 2 - Benign finding. DENSITY: There are scattered fibroglandular densities. POS - CDHMAMA Narrative 07/29/2019 9:45 AM EST 63-year-old female with no current breast symptoms. Comparison made to previous on 07/24/2018 and as far back as 01/15/2013. Interpretation made in conjunction with computer-aided detection and tomosynthesis. There are scattered areas of fibroglandular density. Stable bilateral post breast reduction changes and calcifications. There are no suspicious masses, areas of architectural distortion, or suspicious clusters of microcalcifications. Procedure Note Enrique Wilkinson MD - 07/29/2019 63-year-old female with no current breast symptoms. Comparison made toprevious on 07/24/2018 and as far back as 01/15/2013. Interpretation madein conjunction with computer-aided detection and tomosynthesis. There are scattered areas of fibroglandular density. Stable bilateral postbreast reduction changes and calcifications. There are no suspicious masses, areas of architectural distortion, orsuspicious clusters of microcalcifications. IMPRESSION: No mammographic evidence of malignancy. Recommend routine annualsurveillance. BI-RADS CATEGORY: 2 - Benign finding. DENSITY: There are scattered fibroglandular densities. POS - CDHMAMA Andreina Melissa NP IMG MG EXAMS Final Result documented in this encounter Visit Diagnoses Diagnosis Breast screening Breast screening, unspecified Breast screening Breast screening, unspecified documented in this encounter Care Teams Rooms Director Relationship Specialty Start Date End Date Andreina Melissa NP [address] [place] [address] PCP - General Family Medicine 09/20/17 09/05/23 Diamond Rosa NP [address] [place] [address] PCP - General Family Medicine 09/06/23 Elvin Overton DO [address] [place] [address] Historical LMR Provider 06/24/17 09/16/21 Nicky Lopez MD [address] [place] [address], 2[address] [place] [address] Historical LMR Provider 06/24/17 Addie Castellon MD [address] [place] [address] Historical LMR Provider 06/24/17 2 Andreina Melissa BRAID CUTTER [address] [place] [address] Historical LMR Provider 06/24/17 documented as of this encounter Additional Source Comments The information contained in this document represents components of the legal health record. It is not the complete legal health record.[facility]
--- OUTSIDE RECORDS SUMMARY | 2025-05-04 10:16 | XMS_ITS | Encounter Summary ---
Author Organization [facility] Address [address] [facility] [address] [place] [address] Phone Care Team Providers Care Nuclear Operator Name Role Phone Andreina Melissa TOY STUFFER Unavailable [phone] Andreina Melissa TOY STUFFER Primary Care Provider [phone] Diamond Rosa TOY STUFFER Primary Care Provider + Encounter Details Date Type Department Care Team (Latest Contact Info) Description 06/06/2023 Transcribe Orders Virtual Department 30 [place] [address] Anjana Woodard PA-C [address] [place] [address] [email or web address] Bloating (Primary Dx); Change in bowel habits Social History Tobacco Use Types Packs/Day Years [...] Contact Info) Description 11/06/2024 Procedure Pass [address] [address] 05/14/2025 9:00 AM EDT Appointment [address] [address] Diamond Rosa NP [address] [place] [address] documented as of this encounter Results * US ABDOMEN LIMITED RIGHT UPPER QUADRANT (06/17/2023 9:27 AM EDT) Anatomical Region Laterality Modality Abdomen Ultrasound 06/17/2023 11:5 6 AM EDT Impressions 06/17/2023 11:56 AM EDT Unremarkable right upper quadrant ultrasound Narrative 06/17/2023 11:56 AM EDT US ABDOMEN LIMITED RIGHT UPPER QUADRANT TECHNIQUE: US Abdominal limited right upper quadrant. COMPARISON: None FINDINGS: Liver: Normal. No focal lesions. Main Portal Vein: Patent with normal direction of flow. Gallbladder: Normal. No gallstones or gallbladder wall thickening. Tom's Sign: Negative. Biliary: Normal. No intrahepatic or extrahepatic biliary ductal dilatation. The common bile duct measures 6-8 mm. Procedure Note Dutch Ledbetter MD, ROBERT - 06/17/2023 US ABDOMEN LIMITED RIGHT UPPER QUADRANT TECHNIQUE: US Abdominal limited right upper quadrant. COMPARISON: None FINDINGS: Liver: Normal. No focal lesions. Main Portal Vein: Patent with normal direction of flow. Gallbladder: Normal. No gallstones or gallbladder wall thickening. Tom's Sign: Negative. Biliary: Normal. No intrahepatic or extrahepatic biliary ductaldilatation. The common bile duct measures 6-8 mm. IMPRESSION: Unremarkable right upper quadrant ultrasound Anjana Woodard PA-C IMG US ABDOMEN Final Result documented in this encounter Visit Diagnoses Diagnosis Bloating- Primary Flatulence, eructation, and gas pain Change in bowel habits Other symptoms involving digestive system Bloating Flatulence, eructation, and gas pain Change in bowel habits Other symptoms involving digestive system documented in this encounter Care Teams Nuclear Operator Relationship Specialty Start Date End Date Andreina Melissa NP PCP - General Family Medicine 09/20/17 09/05/23 Diamond Rosa NP [address] [place] [address] PCP - General Family Medicine 09/06/23 Andreina Melissa NP Historical LMR Provider 06/24/17 documented as of this encounter Additional Source Comments The information contained in this document represents components of the legal health record. It is not the complete legal health record.[facility]
[2025-05-16 17:53] LABS: Apolipoprotein E Genotype E3/E3
== END 2025-05-04 09:39 | disposition home or self-care (01) ==
LOC: HO.LAB 09:38
PROVIDERS: PCP Student in an Organized Health Care Education/Training Program; Referring Provider Psychiatry & Neurology Neurology; Visit Provider Registered Nurse
DX: G30.9 Alzheimer's disease, unspecified (principal); F02.80 Dementia in other diseases classified elsewhere, unspecified severity, without behavioral disturbance, psychotic disturbance, mood disturbance, and anxiety
CPT/HCPCS: 36415; 82542

== ENCOUNTER → 2025-06-11 07:50 | Outpatient (BNV) | payer MEDICARE, OTHER, SELFPAY | PROVIDERS: Visit Provider Radiology Diagnostic Radiology | DX: G30.9 Alzheimer's disease, unspecified (principal) | CPT/HCPCS: 70551 ==

== ENCOUNTER 2025-06-11 08:06 | Outpatient (REF) | payer MEDICARE, OTHER, SELFPAY ==
--- NOTE | ~2025-06-11 | MR_ITS ---
EXAMINATION: MR BRAIN WITHOUT CONTRAST CLINICAL INFORMATION: Alzheimer's disease, Kisunla therapy COMPARISON: 09/20/2024 MR brain. TECHNIQUE: MRI of the brain was obtained using routine sequences without contrast. Examination performed on a 1.5 Kristy Siemens high-field unit. FINDINGS: There is no diffusion restriction. There is no intracranial hemorrhage, acute infarction, mass effect, or edema. Ventricles, sulci, and cisterns are normal in size and configuration for patient age. No shift of midline. There are stable punctate foci of hemosiderin deposition within the right cerebellar white matter. No new foci evident. There are a few scattered punctate foci of white matter T2 hyperintensity in the periventricular, subcortical, and hemispheric deep white matter. These foci are nonspecific but statistically most likely relate to small vessel ischemic changes. Midline structures appear normally formed. No callosal atrophy. The pituitary gland appears normal. Posterior fossa structures appear normal. Cerebellar tonsils are appropriately located. Major flow voids are preserved within the skull base. The globes and orbital contents demonstrate no abnormalities. There are bilateral lens replacements. Paranasal sinuses are clear bilaterally. The mastoids and tympanic cavities are normally aerated. Extracranial soft tissues demonstrate no abnormalities. No suspicious bone marrow changes are evident. Atlantoaxial joint is normal. MR/MR head/brain wo con IMPRESSION: 1. Stable examination. No evidence of intracranial hemorrhage, acute infarction, mass effect, or edema. 2. Mild changes of small vessel ischemia. 2. Stable punctate foci of susceptibility in the right cerebellar white matter. No new foci evident. Electronically signed by: Karan Sullivan MD 06/11/2025 09:12 AM EDT
== END 2025-06-11 08:07 | disposition home or self-care (01) ==
LOC: HO.MRI 08:06
PROVIDERS: Visit Provider Nurse Practitioner
DX: G30.9 Alzheimer's disease, unspecified (principal); F02.80 Dementia in other diseases classified elsewhere, unspecified severity, without behavioral disturbance, psychotic disturbance, mood disturbance, and anxiety
CPT/HCPCS: 70551

== ENCOUNTER 2025-07-12 07:41 | Outpatient (REF) | payer MEDICARE, OTHER, SELFPAY ==
--- NOTE | ~2025-07-12 | MR_ITS ---
EXAMINATION: MR BRAIN WITHOUT CONTRAST CLINICAL INFORMATION: Alzheimer's disease, Kisunla therapy COMPARISON: 06/11/2025, 09/20/2024 MR brain. TECHNIQUE: MRI of the brain was obtained using routine sequences without contrast. Examination performed on a 1.5 Kristy Siemens high-field unit. FINDINGS: There is no diffusion restriction. There is no intracranial hemorrhage, acute infarction, mass effect, or edema. Ventricles, sulci, and cisterns are normal in size and configuration for patient age. No shift of midline. There are stable punctate foci of hemosiderin deposition within the right cerebellar white matter. No new foci evident. There are a few scattered punctate foci of white matter T2 hyperintensity in the periventricular, subcortical, and hemispheric deep white matter. These foci are nonspecific but statistically relate to small vessel ischemic changes. Midline structures appear normally formed. No callosal atrophy. The pituitary gland appears normal. Posterior fossa structures appear normal. Cerebellar tonsils are appropriately located. Major flow voids are preserved within the skull base. The globes and orbital contents demonstrate no abnormalities. There are bilateral lens replacements. Paranasal sinuses are clear bilaterally. The mastoids and tympanic cavities are normally aerated. Extracranial soft tissues demonstrate no abnormalities. No suspicious bone marrow changes are evident. Atlantoaxial joint is normal. MR/MR head/brain wo con IMPRESSION: 1. Stable examination. No evidence of intracranial hemorrhage, acute infarction, mass effect, or edema. 2. Stable mild changes of small vessel ischemia. 2. Stable punctate foci of susceptibility in the right cerebellar white matter. No new foci evident. Electronically signed by: Karan Sullivan MD 07/12/2025 08:42 AM EST
--- OUTSIDE RECORDS SUMMARY | 2025-07-12 07:44 | XMS_ITS | Encounter Summary ---
Author Organization [facility] Address [facility] [place] [facility] [address] [place] [address] Phone Care Team Providers Care Communications Specialist Name Role Phone MayaElvin orellana Brittney DO Unavailable Nicky Lopez MD Unavailable Addie Castellon MD Unavailable Andreina Melissa PUPIL PERSONNEL SERVICES DIRECTOR Unavailable [phone] Andreina Melissa PUPIL PERSONNEL SERVICES DIRECTOR Primary Care Provider Diamond Rosa PUPIL PERSONNEL SERVICES DIRECTOR Primary Care Provider + Encounter Details Date Type Department Care Team (Late st Contact Info) Description 05/09/2020 Ancillary Orders Virtual Department 30 [place] [address] Andreina Melisas, PUPIL PERSONNEL SERVICES DIRECTOR [address] [place], [place] [phone] Breast screening Social History Tobacco Use Types [...] as of this encounter Plan of Treatment Not on file documented as of this encounter Results * [...] There are scattered fibroglandular densities. Andreina Melissa NP IMG MG EXAMS Final Result documented in this encounter Visit Diagnoses Diagnosis Breast screening Breast screening, unspecified Breast screening Breast screening, unspecified documented in this encounter Care Teams Communications Specialist Relationship Specialty Start Date End Date Andreina Melissa NP [address] [place] [address] PCP - General Family Medicine 09/20/17 09/05/23 Diamond Rosa NP [address] [place] [address] PCP - General Family Medicine 09/06/23 Elvin Overton DO [address] [place] [address] [place] [address] Historical LMR Provider 06/24/17 09/16/21 Nicky Lopez MD [address] [place] [address] Historical LMR Provider 06/24/17 Addie Castellon MD [address] [place] [address] Historical LMR Provider 06/24/17 2 Andreina Melissa NP [address] [place] [address] Historical LMR Provider 06/24/17 documented as of this encounter Additional Source Comments The information contained in this document represents components of the legal health record. It is not the complete legal health record.[facility]
--- OUTSIDE RECORDS SUMMARY | 2025-07-12 07:44 | XMS_ITS | Encounter Summary ---
Author Organization [facility] Address [facility] [address] [place] [address] Phone Care Team Providers Care Dial Lathe Operator Name Role Phone MayaElvin orellana Brittney DO Unavailable Nicky Lopez MD Unavailable [phone] Addie Castellon MD Unavailable Andreina Melissa DOUGH PANNER Unavailable [phone] Andreina Melissa DOUGH PANNER Primary Care Provider Diamond Rosa DOUGH PANNER Primary Care Provider + Encounter Details Date Type Department Care Team (Late st Contact Info) Description 05/09/2020 Ancillary Orders Virtual Department 30 [place] [address] Andreina Melissa, DOUGH PANNER [address] [place], [place] [phone] Asymptomatic menopausal state Social History Tobacco Use [...] comparison made to the documented levels of [id number] study. Total bone mineral density in the L1-L4 vertebral bodies was calculated atgm/cm2 with a T-score of 0 and Z-score of , falling within the WHOclassification of normal, without significant interval change from 2007. Total bone mineral density in the right hip was calculated at 0.849 gm/pi5medt a T-score of -0.8 and Z-score of falling within the WHOclassification of normal, representing an interval decline of 6.2% [id number]. Total bone mineral density in the left hip was calculated at 0.901gm/cm2 with a T-score of -0.3 and Z-score of 1.0 falling within the WHOclassification of normal, without significant interval change from 2007. IMPRESSION: Normal bone mineral density with interval decrease in the right hip [id number]. POS - [id number] Andreina Melissa DOUGH PANNER IMG BD BONE DENSITY DEXA Fin al Result documented in this encounter Visit Diagnoses Diagnosis Asymptomatic menopausal state Asymptomatic menopausal state documented in this encounter Care Teams Dial Lathe Operator Relationship Specialty Start Date End Date Andreina Melissa NP [address] [place] [address] PCP - General Family Medicine 09/20/17 09/05/23 Diamond Rosa NP [address] [place] [address] PCP - General Family Medicine 09/06/23 Elvin Overton DO [address] [place] [address] [email or web address] Historical LMR Provider 06/24/17 09/16/21 Nicky Lopez MD [address] [place] [address], 2[address] [place] [address] Historical LMR Provider 06/24/17 Addie Castellon MD [address] [place] [address] [email or web address] Historical LMR Provider 06/24/17 2 Andreina Melissa NP [address] [place], [place] [address] Historical LMR Provider 06/24/17 documented as of this encounter Additional Source Comments The information contained in this document represents components of the legal health record. It is not the complete legal health record.[facility]
--- OUTSIDE RECORDS SUMMARY | 2025-07-12 07:44 | XMS_ITS | Encounter Summary ---
Author Organization [facility] Address [facility] [employer] [facility] [address] [place] [address] Phone Care Team Providers Care Peer Counselor Name Role Phone MayaHi orellanadanyell Lugo DO Unavailable Nicky Lopez MD Unavailable [phone] Addie Castellon MD Unavailable [phone] Andreina Melissa NETWORK DESIGN ARCHITECT Unavailable [phone] Andreina Melissa NP Primary Care Provider Diamond Rosa NETWORK DESIGN ARCHITECT Primary Care Provider + Encounter Details Date Type Department Care Team (Late st Contact Info) Description 05/09/2020 Procedure Pass [address] [address] Social History Tobacco Use Types Packs/Day Years [...] on file documented as of this encounter Visit Diagnoses Not on filedocumented in this encounter Care Teams Peer Counselor Relationship Specialty Start Date End Date Andreina Melissa NP [address] [place] [address] PCP - General Family Medicine 09/20/17 09/05/23 Diamond Rosa NP [address] [place] [address] PCP - General Family Medicine 09/06/23 Elvin Overton DO [address] [place] [address] Historical LMR Provider 06/24/17 09/16/21 Nicky Lopez MD [address] [place] [address], [address] [place] [address] Historical LMR Provider 06/24/17 Addie Castellon MD [address] [place] [address] Historical LMR Provider 06/24/17 2 Andreina Melissa NP [address] [place] [address] Historical LMR Provider 06/24/17 documented as of this encounter Additional Source Comments The information contained in this document represents components of the legal health record. It is not the complete legal health record.[facility]
--- OUTSIDE RECORDS SUMMARY | 2025-07-12 07:45 | XMS_ITS | Encounter Summary ---
Author Organization [facility] Address [address] [place] [address] Phone Care Team Providers Care Branch Store Manager Name Role Phone Andreina Melissa COFFEE ROASTER HELPER Unavailable [phone] Diamond Rosa COFFEE ROASTER HELPER Primary Care Provider + Encounter Details Date Type Department Care Team (Late st Contact Info) Description 06/16/2024 Procedure Pass [facility] Admitting Dept Virtual Department 30 [place] [address] Social History Tobacco Use Types Packs/Day Years [...] on filedocumented in this encounter Care Teams Branch Store Manager Relationship Specialty Start Date End Date Diamond Rosa NP 8 [place] [address] PCP - General Family Medicine 09/06/23 Andreina Melissa NP Historical LMR Provider 06/24/17 documented as of this encounter Additional Source Comments The information contained in this document represents components of the legal health record. It is not the complete legal health record.[facility]
--- OUTSIDE RECORDS SUMMARY | 2025-07-12 07:45 | XMS_ITS | Encounter Summary ---
Author Organization [facility] Address [address] [place] [address] [place] [address] Phone Care Team Providers Care Asbestos Shingle Roofer Name Role Phone MayaHi orellanadanyell Lugo DO Unavailable Nicky Lopez MD Unavailable Addie Castellon MD Unavailable Andreina Melissa BOOMSWING OPERATOR Unavailable [phone] Andreina Melissa BOOMSWING OPERATOR Primary Care Provider Diamond Rosa BOOMSWING OPERATOR Primary Care Provider + Encounter Details Date Type Department Care Team (Late st Contact Info) Description 07/02/2018 Ancillary Orders Virtual Department 30 [place] [address] Andreina Melissa, BOOMSWING OPERATOR [address] [place], [place] [phone] Breast screening Social History Tobacco Use Types [...] There are scattered fibroglandular densities. POS CDHMAMA us Andreina Melissa BOOMSWING OPERATOR IMG MG EXAMS Final Result documented in this encounter Visit Diagnoses Diagnosis Breast screening Breast screening, unspecified Breast screening Breast screening, unspecified documented in this encounter Care Teams Asbestos Shingle Roofer Relationship Specialty Start Date End Date Andreina Melissa, JUAN [address] [place] [address] PCP - General Family Medicine 09/20/17 09/05/23 Diamond Rosa NP [address] [place] [address] PCP - General Family Medicine 09/06/23 Elvin Overton DO [address] [place] [address] Historical LMR Provider 06/24/17 09/16/21 Nicky Lopez MD [address] [place] [address], 2nd [place] [address] Historical LMR Provider 06/24/17 Addie Castellon MD [address] [place] [address] Historical LMR Provider 06/24/17 2 Andreina Melissa NP [address] [place] [address] Historical LMR Provider 06/24/17 documented as of this encounter Additional Source Comments The information contained in this document represents components of the legal health record. It is not the complete legal health record.[facility]
--- OUTSIDE RECORDS SUMMARY | 2025-07-12 07:45 | XMS_ITS | Encounter Summary ---
Author Organization [facility] Address [address] [place] [address] Phone Care Team Providers Care Sales Representative Sales Manager Name Role Phone Andreina Melissa PRACTICAL MINISTRIES PROFESSOR Unavailable [phone] Diamond Rosa PRACTICAL MINISTRIES PROFESSOR Primary Care Provider + Encounter Details Date Type Department Care Team (Late st Contact Info) Description 11/06/2024 Procedure Pass [facility] [address] [place] [address] Social History Tobacco Use Types Packs/Day Years [...] on filedocumented in this encounter Care Teams Sales Representative Sales Manager Relationship Specialty Start Date End Date Diamond Rosa NP 8 [place] [address] PCP - General Family Medicine 09/06/23 Andreina Melissa NP Historical LMR Provider 06/24/17 documented as of this encounter Additional Source Comments The information contained in this document represents components of the legal health record. It is not the complete legal health record.[facility]
--- OUTSIDE RECORDS SUMMARY | 2025-07-12 07:45 | XMS_ITS | Encounter Summary ---
Author Organization [facility] Address [facility] [address] [place] [address] Phone Care Team Providers Care Keno Manager Name Role Phone MayaElvin orellana Brittney DO Unavailable Nicky Lopez MD Unavailable [phone] Addie Castellon MD Unavailable Andreina Melissa CLIMATE CHANGE ANALYST Unavailable [phone] Andreina Melissa CLIMATE CHANGE ANALYST Primary Care Provider Diamond Rosa CLIMATE CHANGE ANALYST Primary Care Provider + Encounter Details Date Type Department Care Team (Late st Contact Info) Description 04/30/2019 Ancillary Orders Virtual Department 30 [place] [address] Andreina Melissa, CLIMATE CHANGE ANALYST [address] [place], [place] [phone] Breast screening Social History Tobacco Use Types [...] fibroglandular densities. POS - CD[facility] Andreina Melissa CLIMATE CHANGE ANALYST IMG MG EXAMS Final Result documented in this encounter Visit Diagnoses Diagnosis Breast screening Breast screening, unspecified Breast screening Breast screening, unspecified documented in this encounter Care Teams Keno Manager Relationship Specialty Start Date End Date Andreina Melissa NP [address] [place] [address] PCP - General Family Medicine 09/20/17 09/05/23 Diamond Rosa NP [address] [place] [address] PCP - General Family Medicine 09/06/23 Elvin Overton DO [address] [place] [address] Historical LMR Provider 06/24/17 09/16/21 Nicky Lopez MD [address] [place] [address], [address] [place] [address] Historical LMR Provider 06/24/17 Addie Castellon MD [address] [place] [address] Historical LMR Provider 06/24/17 2 Andreina Melissa NP [address] [place] [address] Historical LMR Provider 06/24/17 documented as of this encounter Additional Source Comments The information contained in this document represents components of the legal health record. It is not the complete legal health record.[facility]
--- OUTSIDE RECORDS SUMMARY | 2025-07-12 07:45 | XMS_ITS | Encounter Summary ---
Author Organization [employer] Address [address] [facility] 7t [place] [address] Care Team Providers Care Autocad Draftsman Name Role Phone Diamond Rosa ALEXIA Primary Care Provider [phone] Encounter Details Date Type Department Care Team (Late st Contact Info) Description 05/17/2025 Orders Only [facility] [address] [place] [address] Provider, Not In System Social History Tobacco Use Types Packs/Day Years [...] Care Team (Late st Contact Info) Description 10/06/2025 9:00 AM EST Office Visit [facility] 8 [place] [phone] Diamond Rosa FNP 8 [place] [address] documented as of this encounter Procedures Procedure Name Priority Date/Time Associated Diagnosis Comments MAMMOGRAPHY Routine 05/14/2025 10:54 AM EDT documented in this encounter Results * Hm Mammography (05/14/2025 10:54 AM EDT) Anatomical Region Laterality Modality Other us Not In System Provider HEALTH MAINTENANCE Edited Result - Final documented in this encounter Visit Diagnoses Not on filedocumented in this encounter Additional Health Concerns Assessment Noted Time PHQ-9 Depression Total Score: 13 025 11:37 AM EDT documented as of this encounter Care Teams Autocad Draftsman Relationship Specialty Start Date End Date Diamond Rosa FNP PCP - General Family Medicine 08/20/22 documented as of this encounter
--- OUTSIDE RECORDS SUMMARY | 2025-07-12 07:45 | XMS_ITS | Encounter Summary ---
Author Organization [facility] Address [address] [place] [address] Phone Care Team Providers Care Salt Washer Harvesting Station Name Role Phone Andreina Melissa SUPERVISOR MAIL CARRIERS Unavailable [phone] Diamond Rosa SUPERVISOR MAIL CARRIERS Primary Care Provider + Encounter Details Date Type Department Care Team (Late st Contact Info) Description 06/17/2024 Procedure Pass [facility] Endoscopy Admitting Dept Virtual Department 30 [place] [address] Social History Tobacco Use Types Packs/Day Years [...] on filedocumented in this encounter Care Teams Salt Washer Harvesting Station Relationship Specialty Start Date End Date Diamond Rosa NP 8 [place] [address] PCP - General Family Medicine 09/06/23 Andreina Melissa NP Historical LMR Provider 06/24/17 documented as of this encounter Additional Source Comments The information contained in this document represents components of the legal health record. It is not the complete legal health record.[facility]
--- OUTSIDE RECORDS SUMMARY | 2025-07-12 07:45 | XMS_ITS | Encounter Summary ---
Author Organization [facility] Address [address] [facility] [address] [place] [address] Phone Care Team Providers Care Manager Sterile Name Role Phone Elvin Overton DO Unavailable Nicky Lopez MD Unavailable [phone] Addie Castellon MD Unavailable [phone] Andreina Melissa RUG WASHER Unavailable [phone] Andreina Melissa RUG WASHER Primary Care Provider Diamond Rosa RUG WASHER Primary Care Provider + Reason for Referral * MRI/CAT Scan - Closed Specialty Diagnoses / Procedures Referred By Derrick alonso Referred To Contact Radiology Diagnoses Chest pain, unspecified type Procedures NC Myocardial Perfusion Exercise Multiple Eduar Roe MD Phone: tel: fax: [email or web address] Referral ID Status Reason Start Date Expiration Date Visits Re quested Visits Authorized [id number] Closed 02/05/2018 02/05/2019 1 1 Encounter Details Date Type Department Care Team (Latest Contact Info) Description 02/05/2018 Transcribe Orders [facility] [address] [place] [address] 3rd Floor, [address] [place] [address] Eduar Roe MD [address] [place] [address], [address] [place] [address] [email or web address] Chest pain, unspecified type (Primary Dx) [...] type documented in this encounter Care Teams Manager Sterile Relationship Specialty Start Date End Date Andreina Melissa NP [address] [place] [address] PCP - General Family Medicine 09/20/17 09/05/23 Diamond Rosa NP [address] [place] [address] PCP - General Family Medicine 09/06/23 Elvin Overton DO [address] [place] [address] [place] [address] Historical LMR Provider 06/24/17 09/16/21 Nicky Lopez MD [address] [place] [address], 2nd [place] [address] [email or web address] Historical LMR Provider 06/24/17 Addie Castellon MD [address] [place] [address] [email or web address] Historical LMR Provider 06/24/17 2 Andreina Melissa NP [address] [place] [address] Historical LMR Provider 06/24/17 documented as of this encounter Additional Source Comments The information contained in this document represents components of the legal health record. It is not the complete legal health record.[facility]
--- OUTSIDE RECORDS SUMMARY | 2025-07-12 07:45 | XMS_ITS | Clinical Summary ---
Author Organization [employer] Address [address] [facility] 7t [place] [address] Care Team Providers Care Tattoo Artist Name Role Phone Diamond Rosa ALEXIA Primary Care Provider [phone] Allergies No known active allergies Medications * [...] DAILY WITH FOOD 90 DAYS 5 Active omeprazole (PriLOSEC) [address] capsule TAKE 1 CAPSULE BY MOUTH EVERY DAY 30 MINUTES BEFORE MORNING MEAL 5 Active atorvastatin (Lipitor) 40 MG tabletIndications: Mixed hyperlipidemia Take 1 tablet (40 mg) by mouth Once per day. 90 tablet 3 5 Active sertraline (Zoloft) 100 MG tabletIndications: JENNY (generalized anxiety disorder) TAKE 1.5 TABLETS (150 MG) BY MOUTH IN THE MORNING 135 tablet 1 5 Active propranolol (Inderal) 10 MG tabletIndications: JENNY (generalized anxiety disorder) Take 1 tablet (10 mg) by mouth 2 times daily. 60 tablet 3 5 05/23/20 28 Active esomeprazole (NexIUM) [address] capsule Take by mouth Once per day. Active Donanemab-azbt (KISUNLA IV) Infuse into a venous catheter. 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 Still experiences intermittent tearfulness and emotional lability, likely related to psychosocial stressors surrounding her recent Alzheimer s diagnosis. PHQ-9 = 8 and JENNY-7 low, indicating mild residual depressive symptoms with minimal anxiety. Denies SI or self-harm. Plan - Continue propranolol 10 mg BID - Encourage re-engagement with [facility] for psychotherapy - Monitor mood, sleep, and fatigue; assess for progression of depressive symptoms or apathy related to Alzheimer s disease - Provided information for Alzheimer's support group - Follow up with PCP in 3 months or sooner for any worsening anxiety, mood, or functional decline. Situational stress 03/28/2023 Impaired fasting glucose 02/06/2023 [...] Encounters Date Type Department Care Team Description 07/06/2025 2:40 PM EDT Office Visit [address] [address] Diamond Rosa FNP JENNY (generalized anxiety disorder) (Primary Dx); Late onset Alzheimer's dementia with anxiety, unspecified dementia severity (HCC); Encounter for screening for depression 06/08/2025 11:00 AM EDT Office Visit [address] [address] Diamond Rosa FNP JENNY (generalized anxiety disorder) (Primary Dx); Late onset Alzheimer's dementia with anxiety, unspecified dementia severity (CMS/HCC) 06/01/[address] [address] Diamond Rosa FNP 05/29/[address] [phone] Diamond Rosa FNP JENNY (generalized anxiety disorder) 05/17/2025 Orders Only [facility] Information Management [address] [place] [address] Provider, Not In System from Last 3 Months Immunizations Immunization Administration Dates Next Due Influenza High-dose Quadriva lent Preservative Free 06/12/2022,07/31/2021,05/31/2020 Influenza injectable quadriv alent IIV4 with preservative 07/31/2021,08/07/2016 Influenza injectable quadriv alent preservative free 06/14/2017,07/17/2016,08/24/2015 Influenza, High Dose Seasona l, Preservative Free 04/16/2025,08/28/2019 Influenza, IIV3, injectable 05/29/2012 Influenza, Injectable, MDCK, [...] you have a drink containing alcohol ? 1 06/08/2025 How many drinks containing a lcohol do you have on a typical day when you are drinking? 0 06/08/2025 How often do you have six or more drinks on one occasion? 0 06/08/2025 Depression Answer Date Recorded Patient Health Questionnaire-9 Score 8 07/06/2025 Patient Health Questionnaire-9 Score 8 07/06/2025 Last PHQ-9: Questionnaire Data Not on file 1 Housing Stability Answer Date Recorded What is your housing situation today? I have claire lo 01/12/[address] you li [...] Answer Date Recorded Patient Health Questionnaire-2 Score 3 07/06/2025 Internet Access Answer Date Recorded Internet Access [...] Sign Reading Time Taken Comments Blood Pressure 116/68 07/06/2025 2:40 PM EDT Pulse 69 07/06/2025 2:40 PM EDT Temperature 36.4 C (97.5 F) 07/21/2024 9:00 AM EST Respiratory Rate - - Oxygen Saturation 99% 07/06/2025 2:40 PM EDT Inhaled Oxygen Concentration - - Weight 70.1 kg (154 lb 9.6 oz) 10/08/2024 2:01 P M EST Height 167.6 cm (5' 6 ) 01/12/2025 10:44 AM EDT Body Mass Index 25.34 12/31/2023 9:56 AM EDT Plan of Treatment Upcoming Encounters Date Type Department Care Team (Late st Contact Info) Description 10/06/2025 9:00 AM EST Office Visit [facility] [address] [place] [address] Diamond Rosa FNP 8 [place] [address] Health Maintenance Due Date Last Done Comments CT Colonography 1953 FIT DNA/Cologuard 1955 FIT 1955 FOBT 1955 Sigmoidoscopy 1953 RSV Patients and Patients Aged 60 years or older (1 - Risk 60-74 years 1-dose series) 2013 Zoster Vaccines (3 of 3) 08/05/2019 06/10/2019, 11/07 COVID-19 Vaccine ( season) 2025 06/17/2025, 12/04/2023, 07/08/2023, Additional history exists Alcohol/Substance Use Screening 01/12/2026 01/12/2025 SDOH Screening 01/12/2026 01/12/2025 Mammogram 05/14/2026 05/14/2025, 0901/2025, 05/14/2025, Additional history exists Depression Screening 07/06/2026 07/06/2025, 07/06/20 Tobacco Screening 07/06/2026 07/06/2025 Lipid Panel 02/15/2028 02/14/2023 Colonoscopy 05/10/2030 08/07/2018 Colorectal Cancer Screening 05/10/2030 DTaP/Tdap/Td Vaccines (3 - Td or Tdap) 10/09/2032 10/09/2022, 05/29/2012 Pneumococcal Vaccine: 50+ Years Completed 07/30/2023 Influenza Vaccine Completed 04/16/2025, , 05/03/2024, Additional history exists HIB Vaccines Aged Out [...] Procedure Name Priority Date/Time Associated Diagnosis Comments HM MAMMOGRAPHY Routine 05/14/2025 10:54 AM EDT AMB REFERRAL TO NEUROLOGY Routine 04/27/2025 Memory loss Cognitive change LIPID PANEL, STANDARD Routine 02/14/2023 8:56 AM EDT Primary hypertension Mixed hyperlipidemia from Last 3 Months or Most Recently Relevant to Health Maintenance Results * Hm Mammography (05/14/2025 10:54 AM EDT) Anatomical Region Laterality Modality Other us Not In System Provider HEALTH MAINTENANCE Edited Result - Final * Referral to Neurology (04/27/2025) us Diamond Rosa TRANSPORT ASSISTANT OUTPATIENT REFERRAL ORDERABLES Edited Result - Final * Lipid Panel, Standard (02/14/2023 8:56 AM EDT) Cholesterol, Total 190 (<200) MG/DL [facility] Triglyceride (mg/dL) in Serum/Plasma 121 (<150) MG/DL [facility] HDL Cholesterol 49 (>39) MG/DL [facility] LDL Cholesterol, Calculated 117 (0-130) MG/DL [facility] Non HDL Chol. (LDL+VLDL) 141 (<160) MG/DL [facility] Comment: Testing performed or reported by [facility] Reference [employer], a Service of [facility], [address] [place] [address] Harvey Issa MD, Suction Drum Drier Operator [facility]# [id number] Blood Venous blood specimen / Unknown 02/14/2023 8:56 AM EDT 02/14/2023 9:04 AM EDT Diamond Rosa [facility] BLOOD ORDERABLES Final Res ult [facility] [address] [place] [phone] from Last 3 Months or Most Recently Relevant to Health Maintenance Insurance [place] [address] [place] [id number] [facility] MEDICARE SUPPLEMENT Care Teams Tattoo Artist Relationship Specialty Start Date End Date Diamond Rosa FNP PCP - General Family Medicine 08/20/22
--- OUTSIDE RECORDS SUMMARY | 2025-07-12 07:45 | XMS_ITS | Encounter Summary ---
Author Organization [employer] Address [address] [facility] 7t [place] [address] Care Team Providers Care High School Business Teacher Name Role Phone Diamond Rosa Primary Care Provider Encounter Details Date Type Department Care Team ([facility] st Contact Info) Description 06/01/[address] [address] Diamond Rosa FNP [address] [place] [address] Social History Tobacco Use Types Packs/Day Years [...] the past 12 months, has t he [employer], gas, oil or water company threatened to [...] AM EST documented as of this encounter Miscellaneous Notes * Telephone Encounter - Nandini Barron - 06/01/2025 11:01 AM EDT Would like a call from nursing to make appointment she can not get into her portal, I just sent gregor new code maybe that will work [phone] * Telephone Encounter - Monie Aguilar MA - 06/01/2025 10:45 AM EDT LMTCB, also reached out via patient portal. * Telephone Encounter - Liz Rodriguez - 06/01/2025 9:10 AM EDT Pt called and made an appointment to speak with Dr. Rosa it is on 06/30 but Pt was hoping to talk with Dr. Rosa sooner as Pt was recently diagnosed with Alzheimer's Disease and wants to go over it with Dr. Please advise [phone] documented in this encounter Plan of Treatment Upcoming Encounters Date Type Department Care Team (Late st Contact Info) Description 10/06/2025 9:00 AM EST Office Visit [address] [address] Diamond Rosa FNP [address] [place] [address] documented as of this encounter Visit Diagnoses Not on filedocumented in this encounter Additional Health Concerns Assessment Noted Time PHQ-9 Depression Total Score: 13 025 11:37 AM EDT documented as of this encounter Care Teams High School Business Teacher Relationship Specialty Start Date End Date Diamond Rosa FNP PCP - General Family Medicine 08/20/22 documented as of this encounter
--- OUTSIDE RECORDS SUMMARY | 2025-07-12 07:45 | XMS_ITS | Encounter Summary ---
Author Organization [facility] Address [facility] [employer] [address] [address] Phone Care Team Providers Care Binding End Stitcher Name Role Phone Andreina Melissa LABOR ARBITRATOR Unavailable [phone] Andreina Melissa LABOR ARBITRATOR Primary Care Provider [phone] Diamond Rosa NP Primary Care Provider + Encounter Details Date Type Department Care Team (Late st Contact Info) Description 10/26/2021 Procedure Pass [facility], [address] [address] Social History Tobacco Use Types Packs/Day Years [...] on filedocumented in this encounter Care Teams Binding End Stitcher Relationship Specialty Start Date End Date Andreina Melissa NP PCP - General Family Medicine 09/20/17 09/05/23 Diamond Rosa NP 8 [place] [address] PCP - General Family Medicine 09/06/23 Andreina Melissa NP Historical LMR Provider 06/24/17 documented as of this encounter Additional Source Comments The information contained in this document represents components of the legal health record. It is not the complete legal health record.[facility]
--- OUTSIDE RECORDS SUMMARY | 2025-07-12 07:45 | XMS_ITS | Encounter Summary ---
Author Organization [facility] Address [facility] [employer] [facility] [address] [place] [address] Phone Care Team Providers Care Printed Circuit Boards Plasma Etcher Name Role Phone Elvin Overton DO Unavailable Nicky Lopez MD Unavailable [phone] Addie Castellon MD Unavailable [phone] Andreina Melissa BULKING MACHINE OPERATOR Unavailable [phone] Elvin Overton DO Primary Care Provider [phone] Andreina Melissa BULKING MACHINE OPERATOR Primary Care Provider Diamond Rosa BULKING MACHINE OPERATOR Primary Care Provider + Encounter Details Date Type Department Care Team (Late st Contact Info) Description 09/17/2017 Transcribe Orders [facility] [address] [place] [address] Andreina Melissa, BULKING MACHINE OPERATOR [address] [place] [address] Cough (Primary Dx) Social History Tobacco Use [...] and supine, Lung Volumes, DLCO; Performing Location: [facility] (09/20/2017 11:56 AMEST) FEV1 liters FVC liters FEV1/FVC % TLC liters DLCO ml/mmHg sec Anatomical Region Laterality Modality Other Narrative 09/20/2017 11:56 AM EST Please see PFT interpretation in the Notes activity. Service date 09/20/2017 Andreina Melissa BULKING MACHINE OPERATOR PFT ORDERABLES Final Result documented in this encounter Visit Diagnoses Diagnosis Cough- Primary Cough documented in this encounter Care Teams Printed Circuit Boards Plasma Etcher Relationship Specialty Start Date End Date Elvin Overton DO [address] [place] [address] PCP - General Family Medicine 08/06/17 09/19/17 Andreina Melissa NP [address] [place] [address] PCP - General Family Medicine 09/20/17 09/05/23 Diamond Rosa NP [address] [place] [address] PCP - General Family Medicine 09/06/23 Elvin Overton DO [address] [place] [address] Historical LMR Provider 06/24/17 09/16/21 Nicky Lopez MD [address] [facility], 2nd [place] [address] [email or web address] Historical LMR Provider 06/24/17 Addei Castellon MD [address] [place] [address] [email or web address] Historical LMR Provider 06/24/17 2 Andreina Melissa NP [address] [place] [address] Historical LMR Provider 06/24/17 documented as of this encounter Additional Source Comments The information contained in this document represents components of the legal health record. It is not the complete legal health record.[facility]
--- OUTSIDE RECORDS SUMMARY | 2025-07-12 07:46 | XMS_ITS | Encounter Summary ---
Author Organization [employer] Address [address] [place] [address] 7 [place] [address] Care Team Providers Care Hydrographer Name Role Phone Diamond Rosa ALEXIA Primary Care Provider [phone] Reason for Visit * Reason Comments Med Change Request Encounter Details Date Type Department Care Team ([facility] st Contact Info) Description 12/31/2023 Refill [facility] [address] [place] [phone] Serena Umana FNP [address] [place] [address] Mild intermittent asthma with acute exacerbation Social [...] Description 10/06/2025 9:00 AM EST Office Visit [facility] 8 [place] [address] Diamond Rosa FNP 8 [place] [address] documented as of this encounter Visit Diagnoses Diagnosis Mild intermittent asthma with acute exacerbation documented in this encounter Care Teams Hydrographer Relationship Specialty Start Date End Date Diamond Rosa FNP PCP - General Family Medicine 08/20/22 documented as of this encounter
--- OUTSIDE RECORDS SUMMARY | 2025-07-12 07:46 | XMS_ITS | Encounter Summary ---
Author Organization [facility] Address Formerly [facility] [address] [address] Phone Care Team Providers Care Director Security Management Name Role Phone Andreina Melissa MALE IMPERSONATOR Unavailable [phone] Andreina Melissa MALE IMPERSONATOR Primary Care Provider [phone] Diamond Rosa NP Primary Care Provider + Encounter Details Date Type Department Care Team (Late st Contact Info) Description 09/04/2022 Procedure Pass [facility], [address] [address] Social History Tobacco Use Types Packs/Day Years [...] on filedocumented in this encounter Care Teams Director Security Management Relationship Specialty Start Date End Date Andreina Melissa NP PCP - General Family Medicine 09/20/17 09/05/23 Diamond Rosa NP [address] [place] [address] PCP - General Family Medicine 09/06/23 Andreina Melissa NP Historical LMR Provider 06/24/17 documented as of this encounter Additional Source Comments The information contained in this document represents components of the legal health record. It is not the complete legal health record.[facility]
--- OUTSIDE RECORDS SUMMARY | 2025-07-12 07:46 | XMS_ITS | Encounter Summary ---
Author Organization [employer] Address [address] [facility] 7 [place] [address] Care Team Providers Care Retirement Plan Specialist Name Role Phone Diamond Rosa Primary Care Provider [phone] Encounter Details Date Type Department Care Team (Late st Contact Info) Description 11/27/2023 Abstract [facility] [address] [place] [address] Diamond Rosa FNP [address] [place] [address] Social History Tobacco Use Types Packs/Day [...] Description 10/06/2025 9:00 AM EST Office Visit [facility] [address] [place] [address] Diamond Rosa FNP [address] [place] [address] documented as of this encounter Procedures Procedure Name Priority Date/Time Associated Diagnosis Comments MAMMOGRAPHY Routine 11/27/2023 documented in this encounter Results * Mammography (11/27/2023) Mammogram BIRADS 2 Normal, Abnormal, BIRADS 1 , BIRADS 2 Anatomical Region Laterality Modality Other us Historical Provider HEALTH MAINTENANCE Final Result documented in this encounter Visit Diagnoses Not on filedocumented in this encounter Care Teams Retirement Plan Specialist Relationship Specialty Start Date End Date Diamond Rosa FNP PCP - General Family Medicine 08/20/22 documented as of this encounter
--- OUTSIDE RECORDS SUMMARY | 2025-07-12 07:46 | XMS_ITS | Clinical Summary ---
Author Organization [facility] Address [address] [employer] [facility] [address] [place] [address] Phone Care Team Providers Care Running Instructor Name Role Phone Andreina Melissa BUSINESS REPORTER Unavailable [phone] Diamond Rosa NP Primary Care Provider + Allergies Active Allergy Reactions Criticality Noted Date Comments Zuvjjeu-Xss-Joq Reductase Inhibitors Myalgia 05/12/2025 Medications simvastatin (ZOCOR) 20 MG tablet Take [...] Take 40 mg by mouth daily. Active sertraline (ZOLOFT) 100 MG tablet Take 100 mg by mouth every morning. 03/31/2025 Active telmisartan-hyd roCHLOROthiazid e (MICARDIS HCT) 40-12.5 mg per tablet Take 1 tablet by mouth daily. 11/06/2024 Active esomeprazole (NEXIUM) 40 MG capsule Take by mouth daily. Active estradioL (ESTRACE) 0.01 % (0.1 mg/gram) vaginal cream Apply 1 g to the vagina and vaginal opening nightly for two weeks, then twice weekly. 42.5 g 1 05/12/2025 Active Active Problems Problem Noted Date Diagnosed [...] AM EDT): No active wheezing. Continue inhalers. Encounters Date Type Department Care Team Description 05/14/2025 8:38 AM EDT - 05/14/2025 11:59 PM EDT Hospital Encounter [facility] [address] [place] [address] Diamond Rosa NP Discharge Disposition: Home or Self Care 05/12/2025 2:10 PM EDT Office Visit [facility] [address] [place] [address] Selma Villalba MD Postmenopausal bleeding (Primary Dx) 05/06/2025 Telephone [facility] [address] [place] [address] Sofia Benson MD Appointment 11/06/2024 Procedure Pass [facility], Mammography- [facility] [address] [place] [address] from Last 3 Months Family History Medical History Relation Comments Arthritis Father Heart disease Father Emphysema Mother Breast cancer Paternal Grandmother Relation Status Comments Father Mother Paternal Grandmother Social History Tobacco Use Types [...] Sign Reading Time Taken Comments Blood Pressure 120/70 05/12/2025 1:47 PM EDT Pulse 60 08/07/2018 11:00 PM EST Temperature 36.8 C (98.3 F) 08/07/2018 8:39 PM EST Respiratory Rate 20 08/07/2018 8:39 PM EST Oxygen Saturation 96% 08/07/2018 11:00 PM EST Inhaled Oxygen Concentration - - Weight 70.3 kg (155 lb) 05/12/2025 1:47 PM EDT Height 163.8 cm (5' 4.5 ) 05/12/2025 1:47 PM EDT Body Mass Index 26.19 05/12/2025 1:47 PM EDT Plan of Treatment Health Maintenance Due Date Last Done Comments DEPRESSION SCREENING 1965 HEPATITIS C SCREENING 1971 COLOGUARD 1998 COLONOSCOPY 1998 COLORECTAL CANCER SCREENING 1998 FIT TEST 1998 FOBT 1998 SIGMOIDOSCOPY 1998 VIRTUAL COLONOSCOPY 1998 RSV VACCINE (1 - Risk 50-74 years 1-dose series) 2003 ZOSTER VACCINES (3 of 3) 08/05/2019 06/10/2019, 11/07 CREATININE LEVEL 03/19/2020 03/19/2019, 08/07/2018 POTASSIUM LEVEL 03/19/2020 03/19/2019, 08/07/2018 COVID-19 VACCINE ( season) 2025 12/04/2023, 07/08/2023, 06/12/2022, Additional history exists BLOOD PRESSURE 11/09/2025 05/12/2025 SMOKING Hx and SMOKELESS TOBACCO SCREENING 05/14/2026 05/14/2025 MAMMOGRAM 05/14/2027 05/14/2025, 11/07, 11/22/2022, Additional history exists LIPID PANEL 02/15/2028 02/14/2023, 10/19/2010 Adult Td,Tdap Booster 10/09/2032 10/09/2022, 012 OSTEOPOROSIS SCREENING INITIAL (ONE-TIME) Completed 06/03/2020 PNEUMOCOCCAL VACCINES (50+ years) Completed 07/30/2023 INFLUENZA VACCINE Completed 04/16/2025, , 05/03/2024, Additional history exists HEPATITIS A VACCINES Aged Out No long [...] SCREENING WITH TOMOSYNTHESIS WITH CAD (BILATERAL) Routine 05/14/2025 8:58 AM EDT Breast screening BD DXA AXIAL (SPINE) WITH HIP Routine 06/03/2020 1:33 PM EDT Asymptomatic menopausal state COMPREHENSIVE METABOLIC PANEL (CMP) Routine 03/19/2019 2:30 PM EDT Bloating Malabsorption due to intolerance, not elsewhere classified OUTSIDE LDL Routine 10/19/2010 from Last 3 Months or Most Recently Relevant to Health Maintenance Results * BI MAMMOGRAM SCREENING WITH TOMOSYNTHESIS WITH CAD (BILATERAL) (05/14/2025 8:58 AM EDT) Anatomical Region Laterality Modality Breast Left, Breast Right, Breast Bilateral Bila teral Mammography 05/14/2025 10:1 6 AM EDT Impressions 05/14/2025 10:18 AM EDT No mammographic evidence of malignancy in either breast. Annual screening mammography is recommended. BI-RADS 1 NEGATIVE The patient will be notified of the results and recommendations. Narrative 05/14/2025 10:18 AM EDT BI MAMMOGRAM SCREENING WITH TOMOSYNTHESIS WITH CAD (BILATERAL) Additional patient information: Screening. COMPARISON: Comparison is made with relevant prior imaging. Breast composition: There are scattered areas of fibroglandular density. FINDINGS: No abnormal masses, suspicious calcifications, or other significant findings are identified mammographically in either breast. Procedure Note Michela Sanchez MD - 05/14/2025 BI MAMMOGRAM SCREENING WITH TOMOSYNTHESIS WITH CAD (BILATERAL) Additional patient information: Screening. COMPARISON: Comparison is made with relevant prior imaging. Breast composition: There are scattered areas of fibroglandular density. FINDINGS: No abnormal masses, suspicious calcifications, or other significantfindings are identified mammographically in either breast. IMPRESSION: No mammographic evidence of malignancy in either breast. Annual screening mammography is recommended. BI-RADS 1 NEGATIVE The patient will be notified of the results and recommendations. us Diamond Garcia Shelley BUSINESS REPORTER IMG MG EXAMS Final Re sult * [...] comparison made to the documented levels of [id number] study. Total bone mineral density in the L1-L4 vertebral bodies was calculated atgm/cm2 with a T-score of 0 and Z-score of , falling within the WHOclassification of normal, without significant interval change from 2007. Total bone mineral density in the right hip was calculated at 0.849 gm/hl9yhxz a T-score of -0.8 and Z-score of falling within the WHOclassification of normal, representing an interval decline of 6.2% [id number]. Total bone mineral density in the left hip was calculated at 0.901gm/cm2 with a T-score of -0.3 and Z-score of 1.0 falling within the WHOclassification of normal, without significant interval change from 2007. IMPRESSION: Normal bone mineral density with interval decrease in the right hip [id number]. POS - [id number] Andreina Melissa NP IMG BD BONE DENSITY DEXA Fin al Result * Comprehensive metabolic panel (03/19/2019 2:30 PM EDT) SODIUM 142 133 - 146 mmol/L [facility] POTASSIUM 4.4 3.3 - 5.1 mmol/L [facility] CHLORIDE 104 96 - 108 mmol/L [facility] CO2 24 21 - 35 mmol/L [facility] BUN 11 6 - 19 mg/dL [facility] CREATININE 0.60 0.5 - 1.5 mg/dL [facility] GLUCOSE 86 70 - 99 mg/dL [facility] ALBUMIN 4.3 3.9 - 4.8 g/dL [facility] TOTAL PROTEIN 7.9 6.5 - 8.0 g/dL [facility] CALCIUM 9.6 8.4 - 10.3 mg/dL [facility] ALKALINE PHOSPHATASE 85 39 - 117 U/L [facility] TOTAL BILIRUBIN 0.5 0.0 - 1.2 mg/dL [facility] AST 26 0 - 37 U/L [facility] ALT 25 0 - 40 U/L [facility] GLOBULIN 3.6 1 - 4.8 g/dL [facility] EGFR 96 >59 mL/min/1.7 3m2 [facility] Comment:If patient is black, multiply result by 1.159. Estimated glomerular filtration rate calculated using the CKD-EPI equation. ANION GAP 18 10 - 20 mmol/L [facility] Blood 03/19/2019 2:30 PM EDT 03/19/2019 6:44 PM EDT us Rebeccaemiliana Morrison Ron MACHINE TOOL BUILDER LAB BLOOD BKR ORDERABLES F inal Result [facility] [address] [place] [address] * Outside LDL (10/19/2010) LDL - External 181 50 - 250 mg/ml us Historical Provider LAB BLOOD ORDERABLES Mell l Result from Last 3 Months or Most Recently Relevant to Health Maintenance Insurance MEDICARE PART A & B [employer] ENHANCE SUPPLEMENT MEDICARE PART A & B MEDICARE ENHANCE SUPPLEMENT MEDICARE PART A & B MEDICARE PART A & B MEDICARE PART A & B [employer] ENHANCE SUPPLEMENT MEDICARE PART A & B MEDICARE PART A & B [facility] MEDICARE ENHANCE SUPPLEMENT MEDICARE PART A & B [facility] MEDICARE ENHANCE SUPPLEMENT MEDICARE PART A & B [employer] MEDIC[employer] ENHANCE SUPPLEMENT Care Teams Running Instructor Relationship Specialty Start Date End Date Diamond Rosa NP [address] [place] [address] PCP - General Family Medicine 09/06/23 Andreina Melissa NP Historical LMR Provider 06/24/17 Additional Source Comments The information contained in this document represents components of the legal health record. It is not the complete legal health record.[facility]
--- OUTSIDE RECORDS SUMMARY | 2025-07-12 07:46 | XMS_ITS | Encounter Summary ---
Author Organization [facility] Address [address] [facility] [address] [place] [address] Phone Care Team Providers Care Youth Services Specialist Name Role Phone Andreina Melissa PROCESS ARTIST Unavailable [phone] Andreina Melissa PROCESS ARTIST Primary Care Provider [phone] Diamond Rosa PROCESS ARTIST Primary Care Provider + Encounter Details Date Type Department Care Team (Latest Contact Info) Description 06/06/2023 Transcribe Orders Virtual Department [address] [place] [address] Anjana Woodard PA-C [address] [place] [address] [email or web address] Bloating (Primary Dx); Change in bowel habits [...] mm. IMPRESSION: Unremarkable right upper quadrant ultrasound us Anjana Woodard PA-C [place] ABDOMEN Final Result documented in this encounter Visit Diagnoses Diagnosis Bloating- Primary Flatulence, eructation, and gas pain Change in bowel habits Other symptoms involving digestive system Bloating Flatulence, eructation, and gas pain Change in bowel habits Other symptoms involving digestive system documented in this encounter Care Teams Youth Services Specialist Relationship Specialty Start Date End Date Andreina Melissa NP PCP - General Family Medicine 09/20/17 09/05/23 Diamond Rosa NP [address] [place] [address] PCP - General Family Medicine 09/06/23 Andreina Melissa NP Historical LMR Provider 06/24/17 documented as of this encounter Additional Source Comments The information contained in this document represents components of the legal health record. It is not the complete legal health record.[facility]
--- OUTSIDE RECORDS SUMMARY | 2025-07-12 07:46 | XMS_ITS | Encounter Summary ---
Author Organization [facility] Address [address] [place] [address] Phone Care Team Providers Care Baby Attendant Name Role Phone Andreina Melissa SPORTS NUTRITIONIST Unavailable [phone] Diamond Rosa SPORTS NUTRITIONIST Primary Care Provider + Encounter Details Date Type Department Care Team (Late st Contact Info) Description 09/06/2023 Procedure Pass [facility], [facility] [address] [place] [address] Social History Tobacco Use Types Packs/Day Years [...] on filedocumented in this encounter Care Teams Baby Attendant Relationship Specialty Start Date End Date Diamond Rosa NP [address] [place] [address] PCP - General Family Medicine 09/06/23 Andreina Melissa NP Historical LMR Provider 06/24/17 documented as of this encounter Additional Source Comments The information contained in this document represents components of the legal health record. It is not the complete legal health record.[facility]
== END 2025-07-12 07:42 | disposition home or self-care (01) ==
LOC: HO.MRI 07:41
PROVIDERS: Visit Provider Registered Nurse
DX: G30.9 Alzheimer's disease, unspecified (principal); F02.80 Dementia in other diseases classified elsewhere, unspecified severity, without behavioral disturbance, psychotic disturbance, mood disturbance, and anxiety
CPT/HCPCS: 70551

== ENCOUNTER → 2025-07-12 07:45 | Outpatient (BNV) | payer MEDICARE, OTHER, SELFPAY | PROVIDERS: Visit Provider Radiology Diagnostic Radiology | DX: G30.9 Alzheimer's disease, unspecified (principal); I67.82 Cerebral ischemia | CPT/HCPCS: 70551 ==

== ENCOUNTER 2025-07-27 11:16 | Outpatient (AMB) | payer MEDICARE, OTHER, SELFPAY ==
--- NOTE | 2025-07-27 11:24 | A.OFFVIS_ITS ---
Intake Visit Reasons: 3RD DOSE OF KISUNLA F/U Allergies No Known Allergies Allergy (Verified 02/26/25 09:32) Medication List - Last Reconciled 07/27/25 by Leno Thorne MD atorvastatin 40 mg PO DAILY donanemab-azbt (Kisunla) 1,400 mg (80 mL) IV Q4W esomeprazole magnesium 40 mg PO DAILY famotidine 40 mg PO DAILY losartan 50 mg PO DAILY metoprolol tartrate 50 mg PO BID sertraline 100 mg PO DAILY telmisartan-hydrochlorothiazid 40-12.5 mg 1 tab PO DAILY HPI Comments Details: Started Kisunla infusions 04/28/25 , today she had 1050mg infusion. Short term memory is a problem. No complications. slight headache at times. MRI scans have been stable with no evidence of ARIA. Will advance to full dose in August.No recall of what the conversation was the day before. Functioning ok. Misplaces phone more regularly. Stopped her Donepezil after 2-3 weeks as she felt she was worse. Memantine 5mg bid . She has difficulty with names and spelling. She had trouble remembering what day it was and if she took her medications. She had missed some appointments. One time she tried to make coffee and poured water directly into coffee grounds. She was still under a lot of stress at home related to her . She started working with a therapist which was going well. She did okay with donepezil 5mg. She tried donepezil 10mg, but did not like how she felt. She had shakiness and change in sleep. She was either not able to sleep or was sleeping too much. She feels her memory has continued to decline over the last month. She was more forgetful and had to write everything down. She was still driving without issue, although she was nervous about getting lost while driving to this appointment. She was reading every night, but had some trouble remembering what she read and would have to go back. On two or three occasions, she left the burner on after using the stove. She had a friend who was receiving infusion treatments for AD. She was not sure if this was something she was eligible for. [facility] Medical History (Updated 04/27/25 @ 10:46 by Leno Thorne MD) Bilateral cataracts Mild cognitive impairment Elevated HDL Hiatal hernia GERD (gastroesophageal reflux disease) HTN (hypertension) Surgical History (Updated 02/26/25 @ 09:43 by Mary Lou Villalpando RN) History of removal of both ovaries H/O section H/O varicose vein ligation Social History Patient Tobacco Use Status: Never used Tobacco Review of Systems Const Details: General/Constitutional:? Change in appetitedenies.? Chillsdenies.? Fatigueadmits.? Feverdenies.? Weight gaindenies.? Weight lossdenies. ???Sleep:? Difficulty getting to sleepdenies.? Difficulty maintaining sleepdenies?.? Urge to move legsdenies.? Teeth grindingadmits.? Shouting or Kicking during sleep denies.? Abnormal behavior during sleepdenies.? Excessive sleepdenies.? Snoring admits.? Daytime sleepinessdenies. ???Respiratory:? Shortness of breathdenies.? Chest paindenies.? Coughdenies. ???Cardiovascular:? Chest pain at restdenies.? Chest pain with exertiondenies.? Claudicationdenies .? Dizzinessdenies.? Fluid accumulation in the legsdenies.? Irregular heartbeat denies.? Palpitationsdenies. ???Gastrointestinal:? Abdominal paindenies.? Constipationadmits.? Diarrheadenies.? Difficulty swallowingdenies.? Heartburnadmits.? Nauseadenies.? Rectal bleedingdenies. ???Genitourinary:? Frequent urinationdenies.? Urgencydenies.? Incontinencedenies.? Erectile Dysfunctiondenies. ???Musculoskeletal:? Neck painadmits.? Back paindenies.? Muscle achesadmits.? Painful jointsadmits.? Sciaticadenies.? Weaknessdenies. ???Neurologic:? Difficulty swallowingdenies.? Balance difficultydenies.? Coordinationnormal.? Difficulty speakingdenies.? Dizzinessdenies.? Faintingdenies.? Gait abnormality denies.? Headachedenies.? Loss of strengthdenies.? Loss of use of extremity denies.? Low back paindenies.? Memory lossadmits.? Seizuresdenies.? Ticsdenies.? Tingling/Numbnessdenies.? Transient loss of visiondenies.? Tremordenies. ???Psychiatric:? Anxietyadmits.? Auditory/visual hallucinationsdenies.? Delusionsdenies.? Depressed moodadmits.? Stressorsadmits.? Substance abusedenies.? Suicidal thou ghtsdenies. 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 Fundoscopy shows normal disc bilaterally. External occular muscles are intact. Visual up are full, no ptosis. Face is symmetrical, no facial weakness or droop. Facial sensations are normal. Tongue protrudes in midline. Palate elevates symmetrically. Shoulder shrugging is normal..?Motor Examination:??Normal muscle tone, bulk and strength,?No atrophy or fasciculations,?No drift of the extended upper extremities,?Deep tendon reflexes are 2+?,?Plantars are flexor?.?Straight Leg Raising:??90 degrees.?Sensory Exam:??Normal light touch, temperature, pinprick, vibration and joint-position sensations?,?Rhomberg sign is absent.?Coordination:??no ataxia,?no titubation,?exgcuk-jg-yboa, knef-lstc-uazf test and rapid alternating movements were normal.?Gait Exam:??Within normal limits.?Cerebellar Signs:??Fmbbzd-xl-fazk and ocmq-ya-whti is normal,?no dysdiadochokinesia?.?Extrapyramidal System:??No tremor, rigidity with normal facial expressions,?No bradykinesia, no bradyphrenia. Normal arm swing and posture. No propulsion or retropulsion.?Speech:??Normal,?no dysphasia or dysarthria..? Mini Mental Status Exam: Level of Consciousness:??Alert.?Orientation:??Knows correct year, month, day and season. Not date.?Knows correct city, county and state. Knows correct location and floor.?Registration:??Able to register 3 object s.?Attention:??Serial 7's performed accurately to 93.?Recall:??Able to recall 3 out of 3 objects.?Language:??Normal spontaneous speech, fluency, repetition,naming, comprehension, reading and writing.?Total Score:??.? General Examination: GENERAL APPEARANCE:??normal,?in no acute distress.?HEART:??S1, S2 normal,?no murmurs.?LUNGS:??clear anteriorly and posterior ly.?MUSCULOSKELETAL:??normal.?EXTREMITIES:??no edema.?PSYCH:??alert, as above.? Assessment & Plan Assessment & Plan (1) Mild cognitive impairment: Comment: 09/25/24 EEG- WNL 09/2024 labs ok 09/2024 MRI brain: No acute findings 11/18/24 MMS , MoCA with MIS 12/22, Functional Activities Questionnaire 12 Code(s): G31.84 - Mild cognitive impairment of uncertain or unknown etiology Category: Medical (2) Alzheimer's disease: Code(s): G30.9 - Alzheimer's disease, unspecified; F02.80 - Dementia in other diseases classified elsewhere, unspecified severity, without behavioral disturbance, psychotic disturbance, mood disturbance, and anxiety Category: Medical Plan Continue Kisunla infusions for anti-amyloid therapy, and serial MRI scans Orders: Orders MR head/brain wo con 4 Weeks F02.80 - Dementia in other diseases classified elsewhere, unspecified severity, without behavioral disturbance, psychotic disturbance, mood disturbance, and anxiety, G30.9 - Alzheimer's disease, unspecified, G31.84 - Mild cognitive impairment of uncertain or unknown etiology Coding Level of Care Code Est Pt Level 4 (18367) Diagnoses Mild cognitive impairment G31.84 Alzheimer's disease G30.9; F02.80
== END 2025-07-27 12:06 | disposition home or self-care (01) ==
PROVIDERS: Visit Provider Psychiatry & Neurology Neurology
DX: G30.9 Alzheimer's disease, unspecified (principal); F02.80 Dementia in other diseases classified elsewhere, unspecified severity, without behavioral disturbance, psychotic disturbance, mood disturbance, and anxiety
CPT/HCPCS: 99214

== ENCOUNTER → 2025-07-27 11:16 | Outpatient (BNVA) | payer MEDICARE, OTHER, SELFPAY | PROVIDERS: Visit Provider Psychiatry & Neurology Neurology | DX: G30.9 Alzheimer's disease, unspecified (principal); F02.80 Dementia in other diseases classified elsewhere, unspecified severity, without behavioral disturbance, psychotic disturbance, mood disturbance, and anxiety | CPT/HCPCS: 99212 ==

== ENCOUNTER → 2025-08-21 08:47 | Outpatient (BNV) | payer MEDICARE, OTHER, SELFPAY | PROVIDERS: Visit Provider Radiology Diagnostic Radiology | DX: G31.84 Mild cognitive impairment of uncertain or unknown etiology (principal) | CPT/HCPCS: 70551 ==

== ENCOUNTER 2025-08-21 08:48 | Outpatient (REF) | payer MEDICARE, OTHER, SELFPAY ==
--- NOTE | ~2025-08-21 | MR_ITS ---
EXAMINATION: MR BRAIN WITHOUT CONTRAST CLINICAL INFORMATION: G 31.84. Mild cognitive impairment of uncertain or unknown etiology. COMPARISON: July 12, 2025 TECHNIQUE: MRI of the brain was obtained using routine sequences without contrast. FINDINGS: No restricted diffusion. No acute intracranial hemorrhage, mass effect, midline shift, hydrocephalus or herniation. Berger-white matter differentiation is normal. Bilateral, a few, scattered, nonspecific subcortical white matter hyperintense T2 FLAIR signal in centrum semiovale. Posterior cranial fossa contents demonstrated no acute hemorrhage or mass effect. Cluster of susceptibility signal, right cerebellum posterior to the right dentate nucleus. Flow-void signal within the main cerebral vessels is normal. No signal abnormality or volume loss in the hippocampi. Sellar/suprasellar region is normal. Craniocervical junction is intact with normal position of the cerebellar tonsils. MR/MR head/brain wo con IMPRESSION: No acute brain abnormality. Stable brain. Consider IV contrast enhanced sequences. Electronically signed by: Bhargav Dubois MD 08/23/2025 06:52 AM EST
--- OUTSIDE RECORDS SUMMARY | 2025-08-21 08:55 | XMS_ITS | Encounter Summary ---
Author Organization [facility] Address [facility] [address] [place] [address] Phone Care Team Providers Care Diesel Retrofit Designer Name Role Phone Elvin Overton DO Unavailable Nicky Lopez MD Unavailable [phone] Addie Castellon MD Unavailable [phone] Andreina Melissa OPTOELECTRONICS ENGINEER Unavailable [phone] Elvin Overton DO Primary Care Provider [phone] Andreina Melissa OPTOELECTRONICS ENGINEER Primary Care Provider Diamond Rosa OPTOELECTRONICS ENGINEER Primary Care Provider + Encounter Details Date Type Department Care Team (Late st Contact Info) Description 09/17/2017 Transcribe Orders [facility]FT Lab [address] [place] [address] Andreina Melissa, OPTOELECTRONICS ENGINEER [address] [place] [address] Cough (Primary Dx) Social History Tobacco Use [...] and supine, Lung Volumes, DLCO; Performing Location: [facility] (09/20/2017 11:56 AMEST) FEV1 liters FVC liters FEV1/FVC % TLC liters DLCO ml/mmHg sec Anatomical Region Laterality Modality Other Narrative 09/20/2017 11:56 AM EST Please see PFT interpretation in the Notes activity. Service date 09/20/2017 Andreina Melissa OPTOELECTRONICS ENGINEER PFT ORDERABLES Final Result documented in this encounter Visit Diagnoses Diagnosis Cough- Primary Cough documented in this encounter Care Teams Diesel Retrofit Designer Relationship Specialty Start Date End Date Elvin Overton DO [address] [place] [address] PCP - General Family Medicine 08/06/17 09/19/17 Andreina Melissa NP [address] [place] [address] PCP - General Family Medicine 09/20/17 09/05/23 Diamond Rosa NP [address] [place] [address] PCP - General Family Medicine 09/06/23 Elvin Overton DO [address] [place] [address] Historical LMR Provider 06/24/17 09/16/21 Nicky Lopez MD [address] [facility], 2nd [place] [address] [email or web address] Historical LMR Provider 06/24/17 Addie Castellon MD [address] [place] [address] [email or web address] Historical LMR Provider 06/24/17 2 Andreina Melissa NP [address] [place] [address] Historical LMR Provider 06/24/17 documented as of this encounter Additional Source Comments The information contained in this document represents components of the legal health record. It is not the complete legal health record.[facility]
--- OUTSIDE RECORDS SUMMARY | 2025-08-21 08:55 | XMS_ITS | Encounter Summary ---
Author Organization [employer] Address [address] [facility] 7t [place] [address] Care Team Providers Care Tub Chucker Name Role Phone Diamond Rosa Primary Care Provider [phone] Encounter Details Date Type Department Care Team ([facility] st Contact Info) Description 06/01/[address] [address] Diamond Rosa FNP [address] [place] [address] Social History Tobacco Use Types Packs/Day Years [...] the past 12 months, has t he [employer], gas, oil or water company threatened to [...] gregor new code maybe that will work [phone] * Telephone Encounter - Monie Aguilar [place] [...] go over it with Dr. Please advise [phone] documented in this encounter Plan of Treatment Upcoming Encounters Date Type Department Care Team (Late st Contact Info) Description 10/07/2025 9:00 AM EST Office Visit [address] [address] Diamond Rosa FNP [address] [place] [address] documented as of this encounter Visit Diagnoses Not on filedocumented in this encounter Additional Health Concerns Assessment Noted Time PHQ-9 Depression Total Score: 13 025 11:37 AM EDT documented as of this encounter Care Teams Tub Chucker Relationship Specialty Start Date End Date Diamond Rosa FNP PCP - General Family Medicine 08/20/22 documented as of this encounter
--- OUTSIDE RECORDS SUMMARY | 2025-08-21 08:55 | XMS_ITS | Encounter Summary ---
Author Organization [facility] Address [facility] [address] [place] [address] Phone Care Team Providers Care Salesperson Art Objects Name Role Phone MayaElvin orellana Brittney DO Unavailable Nicky Lopez MD Unavailable [phone] Addie Castellon MD Unavailable Andreina Melissa POST GRADUATE INTERN Unavailable [phone] Andreina Melissa POST GRADUATE INTERN Primary Care Provider Diamond Rosa POST GRADUATE INTERN Primary Care Provider + Encounter Details Date Type Department Care Team (Late st Contact Info) Description 04/30/2019 Ancillary Orders Virtual Department [address] [place] [address] Andreina Melissa, POST GRADUATE INTERN [address] [place], [place] [phone] Breast screening Social History Tobacco Use Types [...] fibroglandular densities. POS - CDHMAMA Andreina Melissa POST GRADUATE INTERN IMG MG EXAMS Final Result documented in this encounter Visit Diagnoses Diagnosis Breast screening Breast screening, unspecified Breast screening Breast screening, unspecified documented in this encounter Care Teams Salesperson Art Objects Relationship Specialty Start Date End Date Andreina Melissa NP [address] [place] [address] PCP - General Family Medicine 09/20/17 09/05/23 Diamond Rosa NP [address] [place] [address] PCP - General Family Medicine 09/06/23 Elvin Overton DO [address] [place] [address] Historical LMR Provider 06/24/17 09/16/21 Nicky Lopez MD [address] [place] [address], [address] [place] [address] Historical LMR Provider 06/24/17 Addie Castellon MD [address] [place] [address] Historical LMR Provider 06/24/17 2 Andreina Melissa NP [address] [place] [address] Historical LMR Provider 06/24/17 documented as of this encounter Additional Source Comments The information contained in this document represents components of the legal health record. It is not the complete legal health record.[facility]
--- OUTSIDE RECORDS SUMMARY | 2025-08-21 08:55 | XMS_ITS | Continuity of Care Document ---
Author Organization [facility], [facility] Primary Address [address] [facility] [address] [place] [address] Assessment Encounter Date Assessment Date Assessment LastModified by Organization Details LastModified Time 08/16/2025 08/16/2025 botox touch up 5 units frontalis and lower medial eyelids Not available 08/16/2025 13:18:54 Plan of Treatment Reminders Order Date Submit Date Provider Last Modified By Organization Details Last Modified Time Details Appointments Dermatolo gy CSE 15 2025 09:30A M C[facility] PRO Not available Not available Not available Lab None recorded. Referral None recorded. Procedures None recorded. Surgeries None recorded. Imaging None recorded. Medication Orders None recorded. Patient TargetsNo targets recorded. Patient InstructionsNo instructions recorded. Reason for Referral None Reported. Problems Name Problem SNOMED Code Status Onset Date Resolution Date Notes Provider Name and Address Organization Details Recorded Time Hypercholester emia 43542725 Active 2024 Alaina Mendez [address] [place] [address], [place], [address], On license of [facility] Primary 13:18:43 Essential hypertension 27773489 Active 2024 Alaina Mendez [address] [place] [address] [address], [place], [address], On license of [facility] Primary 13:18:57 Memory impairment 224341237 Active 2024 Alaina Mendez [address] [place] [address], [place], [address], [facility] 13:19:07 Problem Notes None recorded. Procedures Surgical History Date Name Laterality Status Provider Name and Address Organization Details Recorded Time 11/24/202 5 Botox completed [facility]YA PRO [address] [facility], [facility] [address], [place], [address], [place] [facility] 08/02/2025 13:22:01 5 Botox Initial completed Alaina Mendez [address] [facility], [facility] [address], [place], [address], [place] [facility] 03/22/2025 13:17:22 Imaging Results None recorded. Procedure Notes None recorded. Medical Equipment None Reported. Allergies Allergen ID Allergen Name Allergen Category Reaction Reaction Severity Criticality Documentation Date Start Date Code Code System Note Provider Name and Address Organization Details Recorded Time 51422 Product containin g 3-hydroxy -3-methyl glutaryl- coenzyme A reductase inhibitor (product) medicatio n myalgias (muscle pain) Not available Not available 08/02/20252024 89854 009 SNOMED Not Available mattie - External Data Service - prod 13:27:23 Medications Name Sig Start Date Stop Date Status Note LastModified by Organization Details LastModified Time telmisartan 40 mg-hydrochl orothiazide 12.5 mg tablet TAKE 1 TABLET BY MOUTH EVERY DAY active Not Available Not Available No t Available losartan 50 mg tablet TAKE 1/2 TABLET BY MOUTH IN AFTERNOON AND 1 FULL TABLET AT NIGHT active Not Available Not Available No t Available amoxicillin 500 mg capsule TAKE 1 CAPSULE BY MOUTH 3 TIMES A DAY FOR 7 DAYS 03/22 completed Not Available Not Available Not Available atorvastati n 40 mg tablet TAKE 1 TABLET (40 MG) BY MOUTH ONCE PER DAY. active Not Available Not Available No t Available donepezil 5 mg tablet TAKE 1 TABLET BY MOUTH DAILY WITH FOOD 90 DAYS active Not Available Not Available No t Available donepezil 10 mg tablet TAKE 1/2 TABLET BY MOUTH WITH DINNER FOR 3 WEEKS THEN 1 TAB WITH DINNER EVERY DAY active Not Available Not Available No t Available famotidine 40 mg tablet TAKE 2 TABLETS BY MOUTH EVERY DAY AT BEDTIME active Not Available Not Available No t Available sertraline 100 mg tablet TAKE 1.5 TABLETS (150 MG) BY MOUTH IN THE MORNING active Not Available Not Available No t Available propranolol 10 mg tablet TAKE 1 TABLET BY MOUTH TWICE A DAY active Not Available Not Available No t Available esomeprazol e magnesium 40 mg capsule,del ayed release TAKE 1 CAPSULE BY MOUTH EVERY DAY active Not Available Not Available No t Available metoprolol tartrate 50 mg tablet TAKE 1 TABLET BY MOUTH TWICE A DAY active Not Available Not Available No t Available omeprazole 20 mg capsule,del ayed release TAKE 1 CAPSULE BY MOUTH EVERY DAY 30 MINUTES BEFORE MORNING MEAL active Not Available Not Available No t Available hydrochloro thiazide 25 mg tablet TAKE 1 TABLET BY MOUTH EVERY DAY active Not Available Not Available No t Available albuterol sulfate HFA 90 mcg/actuati on aerosol inhaler INHALE 2 PUFFS EVERY 6 HOURS NEEDED FOR SHORTNESS OF BREATH OR FOR WHEEZE active Not Available Not Available No t Available losartan 100 mg tablet TAKE 1 TABLET BY MOUTH EVERY DAY active Not Available Not Available No t Available memantine 10 mg tablet TAKE 1 TABLET BY MOUTH TWICE A DAY active Not Available Not Available No t Available memantine 5 mg tablet TAKE 1 TABLET BY MOUTH TWICE A DAY FOR 90 DAYS active Not Available Not Available No t Available bimatoprost 0.03 % drops with applicator, eyelash base APPLY 1 DROP TO APPLICATO R AND APPLY TO UPPER EYELID, ALONG EYELASHES , BY TOPICAL ROUTE ONCE DAILY AT NIGHTTIME 2024 active Not Available Not Available Not Avai lable Vitals None Recorded Social History None recorded. Functional Status None recorded. Mental Status None recorded. Family History Nothing Reported. Medical History No medical history recorded. Gynecological HistoryNo gynecological history recorded. Obstetrics History GPAL:G 0 P 0 0 0 0 Immunizations Vaccine Type Date Status Note Provider Nam e and Address Organization Details Recorded Time Tdap 2 completed Not Available [facility] 12:55:12 Pneumococcal conjugate PCV20, polysaccharide [id number] conjugate, adjuvant, PF 3 completed Not Available [facility] 08/16/2025 12:55:12 COVID-19, mRNA, LNP-S, PF, 100 mcg/0.5mL dose or 50 mcg/0.25mL dose 1 completed Not Available [facility] 08/16/2025 12:55:12 Influenza, split virus, quadrivalent, PF 5 completed Not Available [facility] 08/16/2025 12:55:12 COVID-19, mRNA, LNP-S, bivalent, PF, 50 mcg/0.5 mL or 25mcg/0.25 mL dose 2 completed Not Available [facility] 08/16/2025 12:55:12 COVID-19, mRNA, LNP-S, PF, 50 mcg/0.5 mL 3 completed Not Available [facility] 08/16/2025 12:55:12 Influenza, high-dose, trivalent, PF 9 completed Not Available [facility] 08/16/2025 12:55:12 Influenza, high-dose, quadrivalent, PF 0 completed Not Available [facility] 08/16/2025 12:55:12 Influenza, split virus, quadrivalent, preservative 6 completed Not Available [facility] 08/16/2025 12:55:12 Influenza, high-dose, quadrivalent, PF 2 completed Not Available [facility] 08/16/2025 12:55:12 COVID-19, mRNA, LNP-S, PF, 100 mcg/0.5mL dose or 50 mcg/0.25mL dose 1 completed Not Available [facility] 08/16/2025 12:55:12 zoster recombinant 9 completed Not Available [facility] 08/16/2025 12:55:12 COVID-19, mRNA, LNP-S, PF, 100 mcg/0.5mL dose or 50 mcg/0.25mL dose 1 completed Not Available [facility] 08/16/2025 12:55:12 Influenza, MDCK, trivalent, PF 4 completed Not Available [facility] 08/16/2025 12:55:12 Influenza, split virus, quadrivalent, PF 7 completed Not Available [facility] 08/16/2025 12:55:12 Influenza, adjuvanted, trivalent, PF 4 completed Not Available [facility] 08/16/2025 12:55:12 Influenza, high-dose, quadrivalent, PF 1 completed Not Available [facility] 08/16/2025 12:55:12 COVID-19, mRNA, LNP-S, PF, 50 mcg/0.5 mL 4 completed Not Available [facility] 08/16/2025 12:55:12 zoster live 4 completed Not Available [facility] 08/16/2025 12:55:12 Influenza, split virus, trivalent, preservative 2 completed Not Available [facility] 08/16/2025 12:55:12 influenza, unspecified formulation 4 completed Not Available [facility] 08/16/2025 12:55:12 influenza, unspecified formulation 3 completed Not Available [facility] 08/16/2025 12:55:12 Td (adult), 2 Lf tetanus toxoid, preservative free, adsorbed 3 completed Not Available [facility] 08/16/2025 12:55:12 Influenza, high-dose, trivalent, PF 5 completed Not Available [facility] 08/16/2025 12:55:12 COVID-19, mRNA, LNP-S, PF, 50 mcg/0.5 mL 5 completed Not Available [facility] 08/16/2025 12:55:12 Past Encounters Encounter ID Performer Location Encounter Start Date Encounter Closed Date Diagnosis/Indication Diagnosis SNOMED-CT Code Diagnosis ICD10 Code Diagnosis IMO Codes Diagnosis Note [id number] C[facility] [address] [facility] [place],[address] [place] [address] 08/02/2025 13:05:34 08/02/2025 13:24:42 [id number] CINTHYA PRO [facility] [address] [facility] [place],[address] [place] [address] 08/16/2025 12:54:17 08/16/2025 13:23:10 Health Concerns Section Related Observation LastModified by Organization Detai ls LastModified Time None Recorded Concern Status LastModified by Organization Details LastModified Time None Recorded Payers None recorded. Notes Date Note Type Note Provider Name and Address Organization Details Recorded Time 08/16/2025 text/html Patient here for botox follow up. CINTHYA PRO [address], [place], [address], [facility] - [facility] 08/16/2025 13:19:04 OBGyn Episode No OBEpisode recorded.
--- OUTSIDE RECORDS SUMMARY | 2025-08-21 08:55 | XMS_ITS | Clinical Summary ---
Author Organization [employer] Address [address] [facility] 7t [place] [address] Care Team Providers Care Hide Or Skin Buffer Name Role Phone Diamond Rosa ALEXIA Primary Care Provider [phone] Allergies No known active allergies Medications * [...] Description 07/06/2025 2:40 PM EDT Office Visit [address] [address] Diamond Rosa FNP JENNY (generalized anxiety disorder) (Primary Dx); Late onset Alzheimer's dementia with anxiety, unspecified dementia severity (HCC); Encounter for screening for depression 06/08/2025 11:00 AM EDT Office Visit [address] [address] Diamond Rosa FNP JENNY (generalized anxiety disorder) (Primary Dx); Late onset Alzheimer's dementia with anxiety, unspecified dementia severity (CMS/HCC) 06/01/[address] [address] Diamond Rosa FNP 05/29/[address] [address] Diamond Rosa FNP JENNY (generalized [...] 10/07/2025 9:00 AM EST Office Visit [address] [address] Diamond Rosa FNP [address] [place] [address] Health Maintenance Due Date Last Done Comments CT Colonography 1953 FIT DNA/Cologuard 1955 FIT 1953 FOBT 1955 Sigmoidoscopy 1953 RSV Patients and Patients Aged 60 years or older (1 - Risk 50-74 years 1-dose series) 2003 Zoster Vaccines (3 of 3) 08/05/2019 06/10/2019, 11/07 COVID-19 Vaccine ( season) 2025 06/17/2025, 12/04/2023, 07/08/2023, Additional history exists Alcohol/Substance Use Screening 01/12/2026 01/12/2025 SDOH Screening 01/12/2026 01/12/2025 Mammogram 05/14/2026 05/14/2025, 09/0 01/2025, 05/14/2025, Additional history exists Depression Screening 07/06/2026 07/06/2025, 07/06/20 25 Tobacco Screening 07/06/2026 07/06/2025 Lipid Panel 02/15/2028 [...] Comments MAMMOGRAPHY Routine 05/14/2025 10:54 AM EDT LIPID PANEL, STANDARD Routine 02/14/2023 8:56 AM EDT Primary hypertension Mixed hyperlipidemia from Last 3 Months or Most Recently Relevant to Health Maintenance Results * Mammography (05/14/2025 10:54 AM EDT) Anatomical Region Laterality Modality Other us Not In System Provider HEALTH MAINTENANCE Edited Result - Final * Lipid Panel, Standard (02/14/2023 8:56 AM EDT) Cholesterol, Total 190 (<200) MG/DL [facility] Triglyceride (mg/dL) in Serum/Plasma 121 (<150) MG/DL [facility] HDL Cholesterol 49 (>39) MG/DL [facility] LDL Cholesterol, Calculated 117 (0-130) MG/DL [facility] Non HDL Chol. (LDL+VLDL) 141 (<160) MG/DL [facility] Comment: Testing performed or reported by [facility], a Service of [facility], [address] [place] [address] Harvey Issa MD, Garage Door Service Technician CLAYTON# [id number] Blood Venous blood specimen / Unknown 02/14/2023 8:56 AM EDT 02/14/2023 9:04 AM EDT Diamond Rosa MACHINE JOINER CEMENTER LAB BLOOD ORDERABLES Final Res ult [address] [id number] from Last 3 Months or Most Recently Relevant to Health Maintenance Insurance MEDICARE [facility] MEDICARE SUPPLEMENT Care Teams Hide Or Skin Buffer Relationship Specialty Start Date End Date Diamond Rosa FNP PCP - General Family Medicine 08/20/22
--- OUTSIDE RECORDS SUMMARY | 2025-08-21 08:55 | XMS_ITS | Encounter Summary ---
Author Organization [facility] Address [facility] [address] [address] Phone Care Team Providers Care Business Project Analyst Name Role Phone Andreina Melissa TIRE CURER Unavailable [phone] Andreina Melissa TIRE CURER Primary Care Provider [phone] Diamond Rosa NP Primary Care Provider + Encounter Details Date Type Department Care Team (Late st Contact Info) Description 10/26/2021 Procedure Pass [facility], [address] [address] Social History Tobacco Use Types Packs/Day Years [...] on filedocumented in this encounter Care Teams Business Project Analyst Relationship Specialty Start Date End Date Andreina Melissa NP PCP - General Family Medicine 09/20/17 09/05/23 Diamond Rosa NP [address] [place] [address] PCP - General Family Medicine 09/06/23 Andreina Melissa NP Historical LMR Provider 06/24/17 documented as of this encounter Additional Source Comments The information contained in this document represents components of the legal health record. It is not the complete legal health record.[facility]
--- OUTSIDE RECORDS SUMMARY | 2025-08-21 08:55 | XMS_ITS | Encounter Summary ---
Author Organization [facility] Address [address] [place] [address] Phone Care Team Providers Care Construction Director Name Role Phone Andreina Melissa SPINNER TENDER Unavailable [phone] Diamond Rosa SPINNER TENDER Primary Care Provider + Encounter Details Date Type Department Care Team (Late st Contact Info) Description 06/17/2024 Procedure Pass [facility] Endoscopy Admitting Dept Virtual Department [address] [place] [address] Social History Tobacco Use Types Packs/Day Years [...] on filedocumented in this encounter Care Teams Construction Director Relationship Specialty Start Date End Date Diamond Rosa NP [address] [place] [address] PCP - General Family Medicine 09/06/23 Andreina Melissa NP Historical LMR Provider 06/24/17 documented as of this encounter Additional Source Comments The information contained in this document represents components of the legal health record. It is not the complete legal health record.[facility]
--- OUTSIDE RECORDS SUMMARY | 2025-08-21 08:55 | XMS_ITS | Encounter Summary ---
Author Organization [facility] Address [address] [place] [address] [place] [address] Phone Care Team Providers Care First Sampler Name Role Phone MayaHi orellanadanyell Lugo DO Unavailable Nicky Lopez MD Unavailable Addie Castellon MD Unavailable Andreina Melissa SUSTAINABILITY COORDINATOR Unavailable [phone] Andreina Melissa SUSTAINABILITY COORDINATOR Primary Care Provider Diamond Rosa SUSTAINABILITY COORDINATOR Primary Care Provider + Encounter Details Date Type Department Care Team (Late st Contact Info) Description 07/02/2018 Ancillary Orders Virtual Department [address] [place] [address] Andreina Melissa, SUSTAINABILITY COORDINATOR [address] [place], [place] [phone] Breast screening Social History Tobacco Use Types [...] fibroglandular densities. POS CDHMAMA us Andreina Melissa SUSTAINABILITY COORDINATOR IMG MG EXAMS Final Result documented in this encounter Visit Diagnoses Diagnosis Breast screening Breast screening, unspecified Breast screening Breast screening, unspecified documented in this encounter Care Teams First Sampler Relationship Specialty Start Date End Date Andreina Melissa, JUAN [address] [place] [address] PCP - General Family Medicine 09/20/17 09/05/23 Diamond Rosa NP [address] [place] [address] PCP - General Family Medicine 09/06/23 Elvin Overton DO [address] [place] [address] Historical LMR Provider 06/24/17 09/16/21 Nicky Lopez MD [address] [place] [address], [address] [place] [address] Historical LMR Provider 06/24/17 Addie Castellon MD [address] [place] [address] Historical LMR Provider 06/24/17 2 Andreina Melissa NP [address] [place] [address] Historical LMR Provider 06/24/17 documented as of this encounter Additional Source Comments The information contained in this document represents components of the legal health record. It is not the complete legal health record.[facility]
--- OUTSIDE RECORDS SUMMARY | 2025-08-21 08:55 | XMS_ITS | Encounter Summary ---
Author Organization [facility] Address [address] [facility] [address] [place] [address] Phone Care Team Providers Care Mortgage Loan Originator Name Role Phone Elvin Overton DO Unavailable Nicky Lopez MD Unavailable [phone] Addie Castellon MD Unavailable [phone] Andreina Melissa MEDIA RELATIONS COORDINATOR Unavailable [phone] Andreina Melissa MEDIA RELATIONS COORDINATOR Primary Care Provider [phone] Diamond Rosa MEDIA RELATIONS COORDINATOR Primary Care Provider + Reason for Referral * MRI/CAT Scan - Closed Specialty Diagnoses / Procedures Referred By Derrick alonso Referred To Contact Radiology Diagnoses Chest pain, unspecified type Procedures NC Myocardial Perfusion Exercise Multiple Eudar Roe MD Phone: tel: fax: mailto:[email or web address] Referral ID Status Reason Start Date Expiration Date Visits Re quested Visits Authorized [id number] Closed 02/05/2018 02/05/2019 1 1 Encounter Details Date Type Department Care Team (Latest Contact Info) Description 02/05/2018 Transcribe Orders [facility] [address] [place] [address] 3rd Floor, [address] [place] [address] Eduar Roe MD [address] [place] [address], [address] [place] [address] [email or web address] Chest pain, unspecified type (Primary [...] type documented in this encounter Care Teams Mortgage Loan Originator Relationship Specialty Start Date End Date Andreina Melissa NP [address] [place] [address] PCP - General Family Medicine 09/20/17 09/05/23 Diamond Rosa NP [address] [place] [address] PCP - General Family Medicine 09/06/23 Elvin Overton DO [address] [place] [address] [place] [address] Historical LMR Provider 06/24/17 09/16/21 Nicky Lopez MD [address] [place] [address], 2nd [place] [address] [email or web address] Historical LMR Provider 06/24/17 Addie Castellon MD [address] [place] [address] [email or web address] Historical LMR Provider 06/24/17 2 Andreina Melissa NP [address] [place] [address] Historical LMR Provider 06/24/17 documented as of this encounter Additional Source Comments The information contained in this document represents components of the legal health record. It is not the complete legal health record.[facility]
--- OUTSIDE RECORDS SUMMARY | 2025-08-21 08:55 | XMS_ITS | Encounter Summary ---
Author Organization [facility] Address [facility] [employer] [facility] [address] [place] [address] Phone Care Team Providers Care Sorter Pricer Name Role Phone MayaElvin orellana Brittney DO Unavailable Nicky Lopez MD Unavailable [phone] Addie Castellon MD Unavailable [phone] Andreina Melissa [place] Unavailable [phone] Andreina Melissa [place] Primary Care Provider [phone] Diamond Rosa [place] Primary Care Provider + Encounter Details Date Type Department Care Team (Late st Contact Info) Description 05/09/2020 Ancillary Orders Virtual Department [address] [place] [address] Andreina Melissa, [place] [address] [place], [place] [phone] Asymptomatic menopausal state Social History Tobacco Use [...] comparison made to the documented levels of [id number] study. Total bone mineral density in the L1-L4 vertebral bodies was calculated atgm/cm2 with a T-score of 0 and Z-score of , falling within the WHOclassification of normal, without significant interval change from 2007. Total bone mineral density in the right hip was calculated at 0.849 gm/my3dbuy a T-score of -0.8 and Z-score of falling within the WHOclassification of normal, representing an interval decline of 6.2% [id number]. Total bone mineral density in the left hip was calculated at 0.901gm/cm2 with a T-score of -0.3 and Z-score of 1.0 falling within the WHOclassification of normal, without significant interval change from 2007. IMPRESSION: Normal bone mineral density with interval decrease in the right hip [id number]. POS - [id number] Andreina Melissa [place] IMG BD BONE DENSITY DEXA Fin al Result documented in this encounter Visit Diagnoses Diagnosis Asymptomatic menopausal state Asymptomatic menopausal state documented in this encounter Care Teams Sorter Pricer Relationship Specialty Start Date End Date Andreina Melissa NP [address] [place] [address] PCP - General Family Medicine 09/20/17 09/05/23 Diamond Rosa NP [address] [place] [address] PCP - General Family Medicine 09/06/23 Elvin Overton DO [address] [place] [address] [email or web address] Historical LMR Provider 06/24/17 09/16/21 Nicky Lopez MD [address] [place] [address], [address] [place] [address] Historical LMR Provider 06/24/17 Addie Castellon MD [address] [place] [address] [email or web address] Historical LMR Provider 06/24/17 2 Andreina Melissa NP [address] [place], [place] [address] Historical LMR Provider 06/24/17 documented as of this encounter Additional Source Comments The information contained in this document represents components of the legal health record. It is not the complete legal health record.[facility]
--- OUTSIDE RECORDS SUMMARY | 2025-08-21 08:55 | XMS_ITS | Continuity of Care Document ---
Author Organization [facility] Address [address] [facility] [address] [place] [address] Assessment No assessment recorded. Plan of Treatment Reminders Order Date Submit [...] Address Organization Details Recorded Time Hypercholester emia 62914157 Active 20[address] Mendez [address] [place] [address] [place], [address], [facility] Primary 5 13:18:43 Essential hypertension 48668599 Active 2024 Alaina Mendez [address] [place] [address] [place], [address], [facility] 5 13:18:57 Memory impairment 019818644 Active 2024 Alaina Mendez [address] [place] [address] [place], [address], [facility] 5 13:19:07 Problem Notes None recorded. Procedures Surgical History Date Name Laterality Status Provider Name and Address Organization Details Recorded Time 5 Botox completed [facility] [address] [place] [address], [id number], [facility] 08/02/2025 13:22:01 5 Botox Initial completed Alaina Mendez [address] [facility] [address], [place], [address], [place] [facility] 03/22/2025 13:17:22 Imaging Results None recorded. Procedure Notes None recorded. Medical Equipment None Reported. Allergies Allergen ID Allergen Name Allergen Category Reaction Reaction Severity Criticality Documentation Date Start Date Code Code System Note Provider Name and Address Organization Details Recorded Time 76652 Product containin g 3-hydroxy -3-methyl glutaryl- coenzyme A reductase inhibitor (product) medicatio n myalgias (muscle pain) Not available Not available 08/02/20252024 24981 009 SNOMED Not Available mattie - External [...] Recorded Time Tdap 2 completed Not Available [facility] 08/16/2025 12:55:12 Pneumococcal conjugate PCV20, polysaccharide [id number] conjugate, adjuvant, PF 3 completed Not Available [facility] 08/16/2025 12:55:12 COVID-19, mRNA, LNP-S, PF, 100 mcg/0.5mL dose or 50 mcg/0.25mL dose 1 completed Not Available [facility] 08/16/2025 12:55:12 Influenza, split virus, quadrivalent, PF 5 completed Not Available [facility] 08/16/2025 12:55:12 COVID-19, mRNA, LNP-S, bivalent, PF, 50 mcg/0.5 mL or 25mcg/0.25 mL dose 2 completed Not Available [facility] 08/16/2025 12:55:12 COVID-19, mRNA, LNP-S, PF, 50 mcg/0.5 mL 3 completed Not Available [facility] 08/16/2025 12:55:12 Influenza, high-dose, trivalent, PF 9 completed Not Available [facility] 08/16/2025 12:55:12 Influenza, high-dose, quadrivalent, PF 0 completed Not Available [facility] 08/16/2025 12:55:12 Influenza, split virus, quadrivalent, preservative 6 completed Not Available [facility] 08/16/2025 12:55:12 Influenza, high-dose, quadrivalent, PF 2 completed Not Available [facility] 08/16/2025 12:55:12 COVID-19, mRNA, LNP-S, PF, 100 mcg/0.5mL dose or 50 mcg/0.25mL dose 1 completed Not Available [facility] 08/16/2025 12:55:12 zoster recombinant 9 completed Not Available [facility] 08/16/2025 12:55:12 COVID-19, mRNA, LNP-S, PF, 100 mcg/0.5mL dose or 50 mcg/0.25mL dose 1 completed Not Available [facility] 08/16/2025 12:55:12 Influenza, MDCK, trivalent, PF 4 completed Not Available [facility] 08/16/2025 12:55:12 Influenza, split virus, quadrivalent, PF 7 completed Not Available [facility] 08/16/2025 12:55:12 Influenza, adjuvanted, trivalent, PF 4 completed Not Available [facility] 08/16/2025 12:55:12 Influenza, high-dose, quadrivalent, PF 1 completed Not Available [facility] 08/16/2025 12:55:12 COVID-19, mRNA, LNP-S, PF, 50 mcg/0.5 mL 4 completed Not Available [facility] 08/16/2025 12:55:12 zoster live 4 completed Not Available [facility] 08/16/2025 12:55:12 Influenza, split virus, trivalent, preservative 2 completed Not Available [facility] 08/16/2025 12:55:12 influenza, unspecified formulation 4 completed Not Available [facility] 08/16/2025 12:55:12 influenza, unspecified formulation 3 completed Not Available [facility] 08/16/2025 12:55:12 Td (adult), 2 Lf tetanus toxoid, preservative free, adsorbed 3 completed Not Available [facility] 08/16/2025 12:55:12 Influenza, high-dose, trivalent, PF 5 completed Not Available [facility] 08/16/2025 12:55:12 COVID-19, mRNA, LNP-S, PF, 50 mcg/0.5 mL 5 completed Not Available [facility] 08/16/2025 12:55:12 Past Encounters Encounter ID Performer Location Encounter Start Date Encounter Closed Date Diagnosis/Indication Diagnosis SNOMED-CT Code Diagnosis ICD10 Code Diagnosis IMO Codes Diagnosis Note [id number] [facility] [address] [place] [address] 08/02/2025 13:05:34 08/02/2025 13:24:42 Health Concerns Section Related Observation LastModified by Organization Detai ls LastModified Time None Recorded Concern Status LastModified by Organization Details LastModified Time None Recorded Payers Encounter Date Sequence Insurance Name Policy Number Policy Flowers Covered Member ID Flowers Member ID Guarantor Name 08/02/2025 1 MEDICARE [place]: [facility] Gala Merida [id number] Gala Merida Notes Date Note Type Note Provider Name and Address Organization Details Recorded Time 08/02/2025 text/html Patient here today for botox treatment, last treatment was done in March. [facility] [address], [place], [address], [facility] 08/02/2025 13:22:28 OBGyn Episode No OBEpisode recorded.
--- OUTSIDE RECORDS SUMMARY | 2025-08-21 08:55 | XMS_ITS | Encounter Summary ---
Author Organization [employer] Address [address] [facility] 7t [place] [address] Care Team Providers Care Liner Man Name Role Phone Diamond Rosa ALEXIA Primary Care Provider [phone] Encounter Details Date Type Department Care Team (Late st Contact Info) Description 05/17/2025 Orders Only [facility] [address] [place] [address] Provider, Not In System Social [...] Description 10/07/2025 9:00 AM EST Office Visit [facility] [address] [place] [id number] Diamond Rosa FNP [address] [place], [place] [phone] documented as of this encounter Procedures Procedure [...] documented as of this encounter Care Teams Liner Man Relationship Specialty Start Date End Date Diamond Rosa FNP PCP - General Family Medicine 08/20/22 documented as of this encounter
--- OUTSIDE RECORDS SUMMARY | 2025-08-21 08:55 | XMS_ITS | Encounter Summary ---
Author Organization [facility] Address [facility] [employer] [facility] [address] [place] [address] Phone Care Team Providers Care Jumbo Operator Name Role Phone MayaHi orellanadanyell Lugo DO Unavailable Nicky Lopez MD Unavailable [phone] Addie Castellon MD Unavailable [phone] Andreina Melissa SENIOR ACCOUNTS PAYABLE CLERK Unavailable [phone] Andreina Melissa NP Primary Care Provider [phone] Diamond Rosa SENIOR ACCOUNTS PAYABLE CLERK Primary Care Provider + Encounter Details Date Type Department Care Team (Late st Contact Info) Description 05/09/2020 Procedure Pass [address] [address] Social History Tobacco Use Types Packs/Day Years [...] on filedocumented in this encounter Care Teams Jumbo Operator Relationship Specialty Start Date End Date Andreina Melissa NP [address] [place] [address] PCP - General Family Medicine 09/20/17 09/05/23 Diamond Rosa NP [address] [place] [address] PCP - General Family Medicine 09/06/23 Elvin Overton DO [address] [place] [address] Historical LMR Provider 06/24/17 09/16/21 Nicky Lopez MD [address] [place] [address], [address] [place] [address] Historical LMR Provider 06/24/17 Addie Castellon MD [address] [place] [address] Historical LMR Provider 06/24/17 2 Andreina Melissa NP [address] [place] [address] Historical LMR Provider 06/24/17 documented as of this encounter Additional Source Comments The information contained in this document represents components of the legal health record. It is not the complete legal health record.[facility]
--- OUTSIDE RECORDS SUMMARY | 2025-08-21 08:56 | XMS_ITS | Clinical Summary ---
Author Organization [facility] Address [address] [facility] [address] [place] [address] Phone Care Team Providers Care Skills Auditor Name Role Phone Andreina Melissa PRACTICE ASSISTANT Unavailable [phone] Diamond Rosa NP Primary Care Provider + Allergies Active Allergy Reactions Criticality Noted Date Comments Cjtqggt-Ymp-Orb Reductase Inhibitors Myalgia 05/12/2025 Medications simvastatin (ZOCOR) [...] 1965 HEPATITIS C SCREENING 1971 COLOGUARD 1998 FIT TEST 1998 FOBT 1998 SIGMOIDOSCOPY [...] history exists LIPID PANEL 02/15/2028 02/14/2023, 10/19/2010 COLONOSCOPY 05/14/2030 07/02/2024 COLORECTAL CANCER SCREENING 05/14/2030 Adult Td,Tdap Booster 10/09/2032 10/09/2022, 012 OSTEOPOROSIS [...] Routine 05/14/2025 8:58 AM EDT Breast screening HM COLONOSCOPY FOR RESULT ENTRY ONLY Routine 07/02/2024 BD DXA AXIAL (SPINE) WITH HIP Routine [...] be notified of the results and recommendations. Diamond Rosa PRACTICE ASSISTANT IMG MG EXAMS Final Re sult * COLONOSCOPY FOR RESULT ENTRY ONLY (07/02/2024) Colonoscopy External Historical Provider HEALTH MAINTENANCE Final Result * BD DXA AXIAL (SPINE) WITH HIP [...] made to the documented levels of the 2007 study. Total bone mineral density in the [...] comparison made to the documented levels of [id number] study. Total bone mineral density in the L1-L4 vertebral bodies was calculated atgm/cm2 with a T-score of 0 and Z-score of , falling within the WHOclassification of normal, without significant interval change from 2007. Total bone mineral density in the right hip was calculated at 0.849 gm/vv3szci a T-score of -0.8 and Z-score of falling within the WHOclassification of normal, representing an interval decline of 6.2% [id number]. Total bone mineral density in the left hip was calculated at 0.901gm/cm2 with a T-score of -0.3 and Z-score of 1.0 falling within the WHOclassification of normal, without significant interval change from 2007. IMPRESSION: Normal bone mineral density with interval decrease in the right hip [id number]. POS - [id number] us Andreina Melissa PRACTICE ASSISTANT IMG BD BONE DENSITY DEXA Fin al Result * Comprehensive metabolic panel (03/19/2019 2:30 PM EDT) SODIUM 142 133 - 146 mmol/L [facility] POTASSIUM 4.4 3.3 - 5.1 mmol/L [facility] CHLORIDE 104 96 - 108 mmol/L [facility] CO2 24 21 - 35 mmol/L [facility] BUN 11 6 - 19 mg/dL [facility] CREATININE 0.60 0.5 - 1.5 mg/dL [facility] GLUCOSE 86 70 - 99 mg/dL [facility] ALBUMIN 4.3 3.9 - 4.8 g/dL [facility] TOTAL PROTEIN 7.9 6.5 - 8.0 g/dL [facility] CALCIUM 9.6 8.4 - 10.3 mg/dL [facility] ALKALINE PHOSPHATASE 85 39 - 117 U/L [facility] TOTAL BILIRUBIN 0.5 0.0 - 1.2 mg/dL [facility] AST 26 0 - 37 U/L [facility] ALT 25 0 - 40 U/L [facility] GLOBULIN 3.6 1 - 4.8 g/dL [facility] EGFR 96 >59 mL/min/1.7 3m2 [facility] Comment:If patient is black, multiply result by 1.159. Estimated glomerular filtration rate calculated using the CKD-EPI equation. ANION GAP 18 10 - 20 mmol/L [facility] Blood 03/19/2019 2:30 PM EDT 03/19/2019 6:44 PM EDT us Rebecca Velasquez CAR WIPER LAB BLOOD BKR ORDERABLES F inal Result [facility] [address] [place] [address] * Outside LDL (10/19/2010) LDL - External 181 50 - 250 mg/ml us Historical Provider LAB BLOOD ORDERABLES Mell l Result from Last 3 Months or Most Recently Relevant to Health Maintenance Insurance MEDICARE PART A & B [facility] MEDICARE ENHANCE SUPPLEMENT MEDICARE PART A & B [facility] MEDICARE ENHANCE SUPPLEMENT MEDICARE PART A & B MEDICARE PART A & B MEDICARE PART A & B Member Subscriber Plan / Payer (Ef fective 2018-Present) Name:Gala Merida Member ID:[id number] Relation to Subscriber:Self Name:Gala Merida Subscriber ID:[id number] Payer ID:[id number] Group ID:Not on file Type:Medicare Address: [employer] [address] [place] [id number] [facility] MEDICARE ENHANCE SUPPLEMENT MEDICARE PART A & B MEDICARE PART A & B [facility] MEDICARE ENHANCE SUPPLEMENT MEDICARE PART A & B [facility] MEDICARE ENHANCE SUPPLEMENT MEDICARE PART A & B [facility] MEDICARE ENHANCE SUPPLEMENT Care Teams Skills Auditor Relationship Specialty Start Date End Date Diamond Rosa NP [address] [place] [address] PCP - General Family Medicine 09/06/23 Andreina Melissa NP Historical LMR Provider 06/24/17 Additional Source Comments The information contained in this document represents components of the legal health record. It is not the complete legal health record.[facility]
--- OUTSIDE RECORDS SUMMARY | 2025-08-21 08:56 | XMS_ITS | Encounter Summary ---
Author Organization [employer] Address [address] [place] [address] 7 [place] [address] Care Team Providers Care Ornament Stapler Name Role Phone Diamond Rosa ALEXIA Primary Care Provider [phone] Reason for Visit * Reason Comments Med Change Request Encounter Details Date Type Department Care Team ([facility] st Contact Info) Description 12/31/2023 Refill [facility] [address] [place] [id number] Serena Umana FNP [address] [place] [address] Mild intermittent asthma with acute exacerbation Social [...] Description 10/07/2025 9:00 AM EST Office Visit [facility] [address] [place] [address] Diamond Rosa FNP [address] [place] [address] documented as of this encounter Visit Diagnoses Diagnosis Mild intermittent asthma with acute exacerbation documented in this encounter Care Teams Ornament Stapler Relationship Specialty Start Date End Date Diamond Rosa FNP PCP - General Family Medicine 08/20/22 documented as of this encounter
--- OUTSIDE RECORDS SUMMARY | 2025-08-21 08:56 | XMS_ITS | Data Portability ---
Author Organization [facility] [employer], [employer] Address [address] [place] [id number] Assessment Encounter Date Assessment Date Assessment LastModified by Organization Details LastModified Time 04/05/2025 04/05/2025 Assessment - No specific dermatological conditions or concerns explicitly diagnosed during the encounter. - 2 units botox in frontalis for touch up Plan - Administer two small Botox injections to address specific areas of concern. - Recommend starting on the advanced eye cream once it becomes available, as it is currently backordered. Not available 04/05/2025 14:34:43 05/12/2025 05/12/2025 1. Nevi- Observation. Return if change Warning signs of malignancy melanoma stressed 2. Solar Lentigo - Observation. Return if change. Sun protection stressed 3. Angioma - Observation. Return if change 4. dermatofibromas - Observation. Return if change Skin Cancer talk given - warning signs of malignancy, ACDEs Sun protection talk given - SPF 30 or higher must be applied and reapplied every 2-3 hours. Protective clothing such as hats, sunglasses and UPF clothing recommended. Avoidance of the strongest sun hours from 10am-4pm. Warning signs of melanoma discussed. Monthly self exams stressed. Return 1 year for repeat CSE This visit is being performed by Sunitha Clayton PA-C under the direct supervision of Kt Funez DO who was physically present in the office and available for immediate consultation. The treatment plan was discussed and agreed upon by the supervising provider. Not available 05/12/2025 10:27:21 08/16/2025 08/16/2025 botox touch up 5 units [...] None recorded. Imaging None recorded. Medication Orders bimatopro st 0.03 % drops with applicato r, eyelash base [address] [facility], [address], [place], [place], [id number], 03/22/2025 13:25:18 Patient TargetsNo targets recorded. Patient InstructionsNo instructions recorded. Reason for Referral None Reported. Problems Name Problem SNOMED Code Status Onset Date Resolution Date Notes Provider Name and Address Organization Details Recorded Time Hypercholester emia 50058427 Active 2024 Alaina Mendez [address] [place] [address], [facility] [place], [address], [place] [facility] 13:18:43 Essential hypertension 13360080 Active 2024 Alaina Mendez [address] [place] [address], [facility] [address], [place], [address], [place] [facility] 13:18:57 Memory impairment 317888344 Active 2024 Alaina Mendez [address] [facility], [facility] [address], [place], [address], [place] [facility] 13:19:07 Problem Notes None recorded. Procedures Surgical History Date Name Laterality Status Provider Name and Address Organization Details Recorded Time 5 Botox completed [facility]YA PRO [address] [facility], [facility] [address], [place], [address], [place] [facility] 08/02/2025 13:22:01 Botox Initial completed Alaina Mendez [address] [place] [address] [address], [place], [address], [place] [facility] 03/22/2025 13:17:22 Imaging Results None recorded. Procedure Notes None recorded. Medical Equipment None Reported. Allergies Allergen ID Allergen Name Allergen Category Reaction Reaction Severity Criticality Documentation Date Start Date Code Code System Note Provider Name and Address Organization Details Recorded Time 87005 Product containin g 3-hydroxy -3-methyl glutaryl- coenzyme A reductase inhibitor (product) medicatio n myalgias (muscle pain) Not available Not available 08/02/20252024 38466 009 SNOMED Not Available [facility] - External [facility] [employer] - prod 13:27:23 [...] Recorded Time Tdap 2 completed Not Available [facility] 08/16/2025 12:55:12 Pneumococcal conjugate PCV20, polysaccharide XVD134 conjugate, adjuvant, PF 3 completed Not Available [facility] 08/16/2025 12:55:12 COVID-19, mRNA, LNP-S, PF, 100 mcg/0.5mL dose or 50 mcg/0.25mL dose 1 completed Not Available [facility] 08/16/2025 12:55:12 Influenza, split virus, quadrivalent, PF 5 completed Not Available [facility] 08/16/2025 12:55:12 COVID-19, mRNA, LNP-S, bivalent, PF, 50 mcg/0.5 mL or 25mcg/0.25 mL dose 2 completed Not Available [facility] 08/16/2025 12:55:12 COVID-19, mRNA, LNP-S, PF, 50 mcg/0.5 mL 3 completed Not Available [facility] 08/16/2025 12:55:12 Influenza, high-dose, trivalent, PF 9 completed Not Available [facility] 08/16/2025 12:55:12 Influenza, high-dose, quadrivalent, PF 0 completed Not Available [facility] 08/16/2025 12:55:12 Influenza, split virus, quadrivalent, preservative 6 completed Not Available [facility] 08/16/2025 12:55:12 Influenza, high-dose, quadrivalent, PF 2 completed Not Available [facility] 08/16/2025 12:55:12 COVID-19, mRNA, LNP-S, PF, 100 mcg/0.5mL dose or 50 mcg/0.25mL dose 1 completed Not Available [facility] 08/16/2025 12:55:12 zoster recombinant 9 completed Not Available [facility] 08/16/2025 12:55:12 COVID-19, mRNA, LNP-S, PF, 100 mcg/0.5mL dose or 50 mcg/0.25mL dose 1 completed Not Available [facility] 08/16/2025 12:55:12 Influenza, MDCK, trivalent, PF 4 completed Not Available [facility] 08/16/2025 12:55:12 Influenza, split virus, quadrivalent, PF 7 completed Not Available [facility] 08/16/2025 12:55:12 Influenza, adjuvanted, trivalent, PF 4 completed Not Available [facility] 08/16/2025 12:55:12 Influenza, high-dose, quadrivalent, PF 1 completed Not Available [facility] 08/16/2025 12:55:12 COVID-19, mRNA, LNP-S, PF, 50 mcg/0.5 mL 4 completed Not Available [facility] 08/16/2025 12:55:12 zoster live 4 completed Not Available [facility] 08/16/2025 12:55:12 Influenza, split virus, trivalent, preservative 2 completed Not Available [facility] 08/16/2025 12:55:12 influenza, unspecified formulation 4 completed Not Available [facility] 08/16/2025 12:55:12 influenza, unspecified formulation 3 completed Not Available [facility] 08/16/2025 12:55:12 Td (adult), 2 Lf tetanus toxoid, preservative free, adsorbed 3 completed Not Available [facility] 08/16/2025 12:55:12 Influenza, high-dose, trivalent, PF 5 completed Not Available [facility] 08/16/2025 12:55:12 COVID-19, mRNA, LNP-S, PF, 50 mcg/0.5 mL 5 completed Not Available [facility] 08/16/2025 12:55:12 Past Encounters Encounter ID Performer Location Encounter Start Date Encounter Closed Date Diagnosis/Indication Diagnosis SNOMED-CT Code Diagnosis ICD10 Code Diagnosis IMO Codes Diagnosis Note [id number] [facility]IN[facility]YA [facility] [address] [place] [address] 03/22/2025 13:13:44 03/22/2025 13:42:56 Hypotrichosis of eyelid 45342996 H02.729 274506 [id number] CINTHYA PRO [address] [place] [address] 04/05/2025 12:58:05 04/05/2025 13:26:45 [id number] CINTHYA PRO [address] [place] [address] 05/12/2025 09:37:48 05/12/2025 09:55:31 History of malignant basal cell neoplasm of skin 740878402 Z85.855 7988721 Solar lentigo 45023008 L 81.4 1102 Seborrheic keratosis 394 791499 L82.1 13557 Melanocyti c nevus of trunk 323538349 D22.5 822793 Hemangioma of skin 85834 006 D18.01 [id number] CINTHYA PRO [address] [place] [address] 08/02/2025 13:05:34 08/02/2025 13:24:42 [id number] CINTHYA PRO [address] [place] [address] 08/16/2025 12:54:17 08/16/2025 13:23:10 Health Concerns Section Related Observation LastModified by Organization Detai ls LastModified Time None Recorded Concern Status LastModified by Organization Details LastModified Time None Recorded Advance Directives Directive None Recorded Payers Insurance Date Sequence Insurance Name Policy Number Policy Flowers Covered Member ID Flowers Member ID Guarantor Name 08/13/2025 1 [place]ICARE [place]: [employer] Gala Merida [id number] Gala Merida 08/13/2025 2 [facility] (MEDICARE SUPPLEMENT) Gala Merida [id number] Gala Merida Notes Date Note Type Note Provider Name and Address Organization Details Recorded Time 03/22/2025 text/html Patient here for botox today, she has had in the past. Last treatment was about 6 months ago. CINTHYA PRO [address] [place] [address], [id number], [place] [facility] 03/22/2025 13:41:23 04/05/2025 text/html ROS as noted in the HPI Patient here today for 2 week botox follow upGala Merida, 69-year-old female - Underwent Botox injections previously, with treatments every 5 weeks - noticed recent Botox treatment - Dr. Davis previously recommended removal of a skin lesion - Noticed development of another lesion, with family history of similar lesion in mother - No current symptoms reported related to the lesions CINTHYA PRO [address], [address], [place] [facility] 04/05/2025 14:35:33 05/12/2025 text/html ROS as noted in the HPI Established patient presents today for a full skin exam. Patient denies family history of NMSC or MM. Patient has had a history of BCC on the nose.Gala Merida, 69-year-old female - History of basal cell carcinoma in the past - Concern about red dots on the face, noted some getting bigger, one has shrunk - Reports having dermatofibromas since - No specific new or concerning skin lesions reported prior to visit [facility] [address] [place] [address], [address], [place] [facility] 05/12/2025 10:27:52 08/02/2025 text/html Patient here today for botox treatment, last treatment was done in March. CIN[facility]YA PRO [address] [facility] [address], [place], [address], [place] [facility] 08/02/2025 13:22:28 08/16/2025 text/html Patient here for botox follow up. [facility]YA PRO 55 [facility], [facility] [address], [place], [address], [place] [facility] 08/16/2025 13:19:04 OBGyn Episode No OBEpisode recorded.
--- OUTSIDE RECORDS SUMMARY | 2025-08-21 08:56 | XMS_ITS | Encounter Summary ---
Author Organization [facility] Address [address] [facility] [address] [place] [address] Phone Care Team Providers Care Shot Fireman Name Role Phone Andreina Melissa FAMILY PARTNER Unavailable [phone] Andreina Melissa FAMILY PARTNER Primary Care Provider [phone] Diamond Rosa FAMILY PARTNER Primary Care Provider + Encounter Details Date Type Department Care Team (Latest Contact Info) Description 06/06/2023 Transcribe Orders Virtual Department [address] [place] [address] Anjana Woodard PA-C [address] [place] [address] [email or web address] Bloating (Primary Dx); Change in bowel [...] system documented in this encounter Care Teams Shot Fireman Relationship Specialty Start Date End Date Andreina Melissa NP PCP - General Family Medicine 09/20/17 09/05/23 Diamond Rosa NP [address] [place] [address] PCP - General Family Medicine 09/06/23 Andreina Melissa NP Historical LMR Provider 06/24/17 documented as of this encounter Additional Source Comments The information contained in this document represents components of the legal health record. It is not the complete legal health record.[facility]
--- OUTSIDE RECORDS SUMMARY | 2025-08-21 08:56 | XMS_ITS | Encounter Summary ---
Author Organization [facility] Address [address] [place] [address] Phone Care Team Providers Care Brewery Worker Name Role Phone Andreina Melissa TORCH OPERATOR Unavailable [phone] Diamond Rosa TORCH OPERATOR Primary Care Provider + Encounter Details Date Type Department Care Team (Late st Contact Info) Description 06/16/2024 Procedure Pass [facility] Admitting Dept Virtual Department [address] [place] [address] Social History Tobacco Use Types Packs/Day Years [...] on filedocumented in this encounter Care Teams Brewery Worker Relationship Specialty Start Date End Date Diamond Rosa NP [address] [place] [address] PCP - General Family Medicine 09/06/23 Andreina Melissa NP Historical LMR Provider 06/24/17 documented as of this encounter Additional Source Comments The information contained in this document represents components of the legal health record. It is not the complete legal health record.[facility]
--- OUTSIDE RECORDS SUMMARY | 2025-08-21 08:56 | XMS_ITS | Encounter Summary ---
Author Organization [employer] Address [address] [facility] 7 [place] [address] Care Team Providers Care Systems Admin Name Role Phone Diamond Rosa Primary Care Provider [phone] Encounter Details Date Type Department Care Team (Late st Contact Info) Description 11/27/2023 Abstract [facility] [address] [place] [address] Diamond Rosa FNP [address] [place] [address] Social History Tobacco Use Types Packs/Day [...] Description 10/07/2025 9:00 AM EST Office Visit [facility] [address] [place] [address] Diamond Rosa FNP [address] [place] [address] documented as of this encounter Procedures Procedure Name Priority Date/Time Associated Diagnosis Comments MAMMOGRAPHY Routine 11/27/2023 documented in this encounter Results * Mammography (11/27/2023) Mammogram BIRADS 2 Normal, Abnormal, BIRADS 1 , BIRADS 2 Anatomical Region Laterality Modality Other us Historical Provider HEALTH MAINTENANCE Final Result documented in this encounter Visit Diagnoses Not on filedocumented in this encounter Care Teams Systems Admin Relationship Specialty Start Date End Date Diamond Rosa FNP PCP - General Family Medicine 08/20/22 documented as of this encounter
--- OUTSIDE RECORDS SUMMARY | 2025-08-21 08:56 | XMS_ITS | Encounter Summary ---
Author Organization [facility] Address [address] [place] [address] Phone Care Team Providers Care Supervisor Photocomposition Name Role Phone Andreina Melissa MAT PUNCHER Unavailable [phone] Diamond Rosa MAT PUNCHER Primary Care Provider + Encounter Details Date Type Department Care Team (Late st Contact Info) Description 11/06/2024 Procedure Pass [facility], [facility] [address] [place] [address] Social History Tobacco Use Types Packs/Day Years [...] on filedocumented in this encounter Care Teams Supervisor Photocomposition Relationship Specialty Start Date End Date Diamond Rosa NP [address] [place] [address] PCP - General Family Medicine 09/06/23 Andreina Melissa NP Historical LMR Provider 06/24/17 documented as of this encounter Additional Source Comments The information contained in this document represents components of the legal health record. It is not the complete legal health record.[facility]
--- OUTSIDE RECORDS SUMMARY | 2025-08-21 08:56 | XMS_ITS | Encounter Summary ---
Author Organization [facility] Address [address] [place] [address] Phone Care Team Providers Care Candle Cutter Name Role Phone Andreina Melissa CREDIT CHECKER Unavailable [phone] Diamond Rosa CREDIT CHECKER Primary Care Provider + Encounter Details Date Type Department Care Team (Late st Contact Info) Description 09/06/2023 Procedure Pass [facility], [facility] [address] [place] [address] Social History Tobacco Use Types Packs/Day Years [...] on filedocumented in this encounter Care Teams Candle Cutter Relationship Specialty Start Date End Date Diamond Rosa NP [address] [place] [address] PCP - General Family Medicine 09/06/23 Andreina Melissa NP Historical LMR Provider 06/24/17 documented as of this encounter Additional Source Comments The information contained in this document represents components of the legal health record. It is not the complete legal health record.[facility]
--- OUTSIDE RECORDS SUMMARY | 2025-08-21 08:56 | XMS_ITS | Encounter Summary ---
Author Organization [facility] Address [facility] [address] [address] Phone Care Team Providers Care Personnel Generalist Manager Name Role Phone Andreina Melissa TYPING BOOKKEEPER Unavailable [phone] Andreina Melissa TYPING BOOKKEEPER Primary Care Provider [phone] Diamond Rosa NP Primary Care Provider + Encounter Details Date Type Department Care Team (Late st Contact Info) Description 09/04/2022 Procedure Pass [facility], [address] [address] Social History Tobacco Use Types Packs/Day Years [...] on filedocumented in this encounter Care Teams Personnel Generalist Manager Relationship Specialty Start Date End Date Andreina Melissa NP PCP - General Family Medicine 09/20/17 09/05/23 Diamond Rosa NP [address] [place] [address] PCP - General Family Medicine 09/06/23 Andreina Melissa NP Historical LMR Provider 06/24/17 documented as of this encounter Additional Source Comments The information contained in this document represents components of the legal health record. It is not the complete legal health record.[facility]
== END 2025-08-21 08:49 | disposition home or self-care (01) ==
LOC: HO.MRI 08:48
PROVIDERS: Visit Provider Psychiatry & Neurology Neurology
DX: G30.9 Alzheimer's disease, unspecified (principal); F02.80 Dementia in other diseases classified elsewhere, unspecified severity, without behavioral disturbance, psychotic disturbance, mood disturbance, and anxiety
CPT/HCPCS: 70551